=== PATIENT | female | born 1960 | race Caucasian/White ===

== ENCOUNTER 2016-06-23 10:32 | Outpatient (RCR) | payer MEDICARE, MEDICAID ==
--- OUTSIDE RECORDS SUMMARY | 2016-03-27 12:34 | XMS REPORT | Continuity of Care Document ---
Author Author [facility] Organization [facility] Address Unknown Phone Unavailable Support Name Relationship Address Phone FELECIA JUÁREZ YONATHAN Caregiver [address] [place] [address] PRANAY BARRON MD Caregiver [address] [facility]. RAJANLORRAINE RIOJAS [id number] [address]AVON Next Of Kin [address] [place] [address] Insurance Providers Payer Name Policy Number Subscriber Name Relationship [employer] Medicare [id number] Susie Pavon 18 Self / Same As Patient [facility] [employer] [id number] Susie Pavon 18 Self / Same As Patient Advance Directives Directive Response Recorded Date/Time Advance Directives No 04/29/14 7:45am Health Care Power of Water Treatment Operator No 04/29/14 7:45am Organ Donor Yes 04/29/14 7:45am Problems No known problems or medical conditions. Medications Medication Dose Route Sig Days/Qty Instructions Order Date Discontinued Date Status [place]-3/Dha/Epa/Fish Oil 1,000 Mg PO TWICE A DAY 07/20/11 Active Fluoxetine HCl (Prozac) 1 Each PO DAILY 07/20/11 08/07/11 Discontinued Insulin Detemir 50 Unit SQ DAILY 07/20/11 Active Metformin HCl (Glucophage) 1,000 Mg PO TWICE A DAY WITH MEALS HOLD UNTIL 08/11/11 07/20/11 04/29/14 Discontinued Amlodipine Besylate (Norvasc 10 Mg) 1 Each PO DAILY 07/20/11 Discontinued Pravastatin Sodium 40 Mg PO TWICE A DAY 07/20/11 Active Metoprolol Succinate 50 Mg PO BEDTIME 07/20/11 Active Liraglutide 1.8 Mg SQ DAILY 07/20/11 08/07/11 Discontinued Aspirin 325 Mg PO DAILY 08/07/11 08/07/11 Discontinued Fluoxetine HCl (Prozac) 20 Mg PO DAILY 08/07/11 Active Amlodipine Besylate 10 Mg PO DAILY 08/07/11 Active Aspirin 81 Mg PO DAILY 08/07/11 Active Glimepiride 2 Mg PO DAILY 04/29/14 Active Fenofibrate Nanocrystallized 48 Mg PO DAILY 04/29/14 Active Simvastatin 20 Mg PO DAILY 04/29/14 Active Glimepiride 4 Mg PO DAILY 04/29/14 Active Social History Social History Problem Response Recorded Date/Time Recent Foreign Travel No 05/29/2014 10:44am Hospital Discharge Instructions No hospital discharge instructions. Plan of Care No plan of care. Functional Status No functional status results. Allergies, Adverse Reactions, Alerts Allergen Type Severity Reaction Status Last Updated No Known Drug Allergies Active 07/21/11 Immunizations Name Given Type Date of Influenza Vaccine 05/18/11 Historical Vital Signs No known vital signs results. Results No known relevant diagnostic tests, laboratory data and/or discharge summary. Procedures No known history of procedures. Encounters Encounter Location Date/Time Discharged Recurring [facility] 08/26/14 11:44am
[~2016-06-23 10:32] MED LIST: AMLO10TA4 PO; AMLO10TA82 PO; ASP325TEC PO; ASP81TEC PO; FENO48TA5 PO; FLUO20CA25 PO; GLIM4TAB56 PO; GLMP2T PO; INSU100I16 SQ; LIRA0.6P3 SQ; METF-380 PO; METO50TA7 PO; OMEG-12 PO; PRAV80TA2 PO; SIMV20TA3 PO
== END 2016-06-25 | disposition home or self-care (01) ==
LOC: WOUNDCARE 10:32
PROVIDERS: ATTEND Surgery
DX: E11.622 Type 2 diabetes mellitus with other skin ulcer (principal); L98.493 Non-pressure chronic ulcer of skin of other sites with necrosis of muscle; T81.31XS Disruption of external operation (surgical) wound, not elsewhere classified, sequela; L92.8 Other granulomatous disorders of the skin and subcutaneous tissue
CPT/HCPCS: 11042; 15271; 17250; 87070; 87075; 87077; 87186; 87205

== ENCOUNTER → 2016-07-10 | Outpatient (CLI) | payer MEDICARE, MEDICAID ==
--- OUTSIDE RECORDS SUMMARY | 2016-07-10 14:37 | XMS REPORT | Continuity of Care Document ---
Author Author [facility] Organization [facility] Address Unknown Phone Unavailable Care Team Providers Care [facility] Hand Name Role Phone PHOEBE MAGANA MD PCP Insurance Providers Payer Name Policy Number Subscriber Name Relationship [employer] [id number] Susie Pavon 18 Self / Same As Patient Medicaid [place] [id number] Susie Pavon 19 Self / Same As Patient Advance Directives Directive Response Recorded Date/Time Advance Directives No 09/13/15 2:20pm Health Care Power of Director Of Maintenance No 04/29/14 7:45am Organ Donor Yes 04/29/14 7:45am Problems Active Problems Medical Problem Onset Date Status Chest pain on exertion Unknown Acute Medications Current Home Medications Medication Dose Units Route Directions Days/Qty Instructions Start Date [place]-3/Dha/Epa/Fish Oil 1 Each 1,000 Mg Oral Twice [...] Wound Culture Tissue, Other STAPH, 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 Encounters Encounter Location Arrival/Admit Date Discharge/Depart Date Attending Provider Discharged Recurring [facility] 06/23/16 10:32am 11:59pm STEPHANIE DIANE MD
--- NOTE | 2016-07-10 18:03 | Diagnostic Imaging Report ---
EXAM: Sternum. INDICATION: Osteomyelitis. FINDINGS: The previous exam of the sternum performed on 02/22/2016 raised the question of bony erosion of the the proximal aspect of the sternum. The subsequent MRI chest exam of 02/25/2016 failed to show any definite evidence for osteomyelitis. On this exam, the overall appearance of the sternum does not seem to have changed significantly. There is no sign of bony destruction to suggest osteomyelitis. The sternotomy wires and surgical clips noted previously are again evident and no different. There is no retrosternal mass visualized. IMPRESSION: There is no evidence for bony destruction to suggest osteomyelitis. If clinical concern regarding an underlying abnormality persists, then either a CT of the chest or a three-phase nuclear medicine bone scan would be recommended. Dictated by: Dictated on workstation # [id number]
== END ==
LOC: RAD 14:33
PROVIDERS: ATTEND Surgery
DX: L98.493 Non-pressure chronic ulcer of skin of other sites with necrosis of muscle (principal); T81.31XS Disruption of external operation (surgical) wound, not elsewhere classified, sequela; E11.622 Type 2 diabetes mellitus with other skin ulcer
CPT/HCPCS: 71120

== ENCOUNTER 2016-09-25 13:21 | Outpatient (RCR) | payer MEDICARE, MEDICAID ==
--- OUTSIDE RECORDS SUMMARY | 2016-06-28 15:05 | XMS REPORT | Continuity of Care Document ---
Author Author [facility] Organization [facility] Address Unknown Phone Unavailable Care Team Providers Care Emergency Veterinary Technician Name Role Phone PHOEBE MAGANA MD PCP Insurance Providers Payer Name Policy Number Subscriber Name Relationship [employer] [id number] Susie Pavon 18 Self / Same As Patient Medicaid [place] [id number] Susie Pavon 19 Self / Same As Patient Advance Directives Directive Response Recorded Date/Time Advance Directives No 09/13/15 2:20pm Health Care Power of Culture Manager No 04/29/14 7:45am Organ Donor Yes 04/29/14 7:45am Problems Active Problems Medical Problem Onset Date Status Chest pain on exertion Unknown Acute Medications Current Home Medications Medication Dose Units Route Directions Days/Qty Instructions Start Date [place]-3/Dha/Epa/Fish Oil 1 Each 1,000 Mg Oral Twice A Day 07/20/11 Insulin Detemir 100 Unit/1 Ml 50 Unit Sub-Q Daily 07/20/11 Pravastatin Sodium 80 Mg 40 Mg Oral Twice A Day 07/20/11 Metoprolol Succinate 50 Mg 50 Mg Oral Bedtime 07/20/11 Fluoxetine Hcl (Prozac) 20 Mg 20 Mg Oral Daily 08/07/11 Amlodipine Besylate 10 Mg 10 Mg Oral Daily 08/07/11 Aspirin 81 Mg 81 Mg Oral Daily 08/07/11 Glimepiride 2 Mg 2 Mg Oral Daily 04/29/14 Fenofibrate Nanocrystallized 48 Mg 48 Mg Oral Daily 04/29/14 Simvastatin 20 Mg 20 Mg Oral Daily 04/29/14 Glimepiride 4 Mg 4 Mg Oral Daily 04/29/14 Past Home Medications Medication Directions Ordered Status Fluoxetine Hcl (Prozac) 20 Mg Capsule, 1 Each Oral Daily 07/20/11 Discontinued Metformin Hcl (Glucophage) 1,000 Mg Tablet, 1000 Mg Oral Twice A Day With Meals 07/20/11 Discontinued Amlodipine Besylate (Norvasc 10 Mg) 10 Mg Tablet, 1 Each Oral Daily 07/20/11 Discontinued Liraglutide 0.6 Mg/0.1 Ml Pen.injctr, 1.8 Mg Sub-Q Daily 07/20/11 Discontinued Aspirin 325 Mg Tabec, 325 Mg Oral Daily 08/07/11 Discontinued Social History Social History Problem Response Recorded Date/Time Alcohol Use Denies Use 09/13/2015 2:55pm Recreational Drug Use No 09/13/2015 2:55pm Recent Foreign Travel No 03/27/2016 12:31pm Hospital Discharge Instructions No hospital discharge instructions. Plan of Care Prescriptions See Medication Section Functional Status No functional status results. Allergies, Adverse Reactions, Alerts No known allergies. Immunizations No immunization records. Vital Signs No known vital signs results. 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 Encounters Encounter Location Arrival/Admit Date Discharge/Depart Date Attending Provider Discharged Recurring [facility] 06/23/16 10:32am 11:59pm STEPHANIE DIANE MD
== END 2016-09-26 | disposition home or self-care (01) ==
LOC: WOUNDCARE 13:21
PROVIDERS: ATTEND Surgery
DX: E11.622 Type 2 diabetes mellitus with other skin ulcer (principal); L98.492 Non-pressure chronic ulcer of skin of other sites with fat layer exposed; T81.31XS Disruption of external operation (surgical) wound, not elsewhere classified, sequela
CPT/HCPCS: 11042; 15271; 71120; 87070; 87075; 87205; 88305; 99212; 99213

== ENCOUNTER 2018-07-31 13:16 | Outpatient (RCR) | payer MEDICARE, MEDICAID | END 2018-08-02 | disposition home or self-care (01) | LOC: CR3 13:16 | PROVIDERS: ATTEND Internal Medicine Cardiovascular Disease | DX: Z29.8 Encounter for other specified prophylactic measures (principal) ==

== ENCOUNTER 2018-08-21 13:55 | Outpatient (RCR) | payer MEDICARE, MEDICAID | END 2018-09-11 | disposition home or self-care (01) | LOC: CR3 13:55 | PROVIDERS: ATTEND Internal Medicine Cardiovascular Disease | DX: Z01.818 Encounter for other preprocedural examination (principal) ==

== ENCOUNTER → 2019-03-25 | Outpatient (CLI) | payer MEDICARE, MEDICAID | LOC: WOUNDCARE 08:06 | PROVIDERS: ATTEND Nurse Practitioner | DX: E11.622 Type 2 diabetes mellitus with other skin ulcer (principal); L97.222 Non-pressure chronic ulcer of left calf with fat layer exposed; I70.242 Atherosclerosis of native arteries of left leg with ulceration of calf | CPT/HCPCS: 99203 ==

== ENCOUNTER → 2019-04-03 | Outpatient (CLI) | payer MEDICARE, MEDICAID | LOC: WOUNDCARE 09:54 | PROVIDERS: ATTEND Nurse Practitioner | DX: E11.622 Type 2 diabetes mellitus with other skin ulcer (principal); E11.52 Type 2 diabetes mellitus with diabetic peripheral angiopathy with gangrene; L97.222 Non-pressure chronic ulcer of left calf with fat layer exposed; I70.242 Atherosclerosis of native arteries of left leg with ulceration of calf | CPT/HCPCS: 99212 ==

== ENCOUNTER → 2019-04-10 | Outpatient (CLI) | payer MEDICARE, MEDICAID | LOC: WOUNDCARE 10:45 | PROVIDERS: ATTEND Nurse Practitioner | DX: E11.622 Type 2 diabetes mellitus with other skin ulcer (principal); L97.222 Non-pressure chronic ulcer of left calf with fat layer exposed; I70.242 Atherosclerosis of native arteries of left leg with ulceration of calf | CPT/HCPCS: 11042 ==

== ENCOUNTER 2021-11-09 22:20 | Inpatient (IN) | payer MEDICARE, MEDICAID ==
[~2021-11-09] VITALS: Ht 162 cm; Wt 125.0 kg
[2021-11-09] MEDS ORDERED: NS IV 1000 ML 1,000 ML IV SCH (22:30)
--- NOTE | 2021-11-09 22:43 | ED General ---
General Stated Complaint: FALL Source of Information: Patient (LIMITED HISTORIAN ABOUT PAST MEDICAL HISTORY), EMS, Old Records (VERY FEW VISITS HERE, NOT BEEN HERE FOR SEVERAL YEARS. ) History of Present Illness Date Seen by Provider: November 09, 2021 Time Seen by Provider: 22:20 Initial Comments PT ARRIVES VIA EMS FROM HOME, WITH CERVICAL COLLAR IN PLACE PT STATES SHE FELL SOMETIME YESTERDAY EARLY TO MID AFTERNOON--PT HAS BEEN LAYING ON THE FLOOR FOR AT LEAST 36 HOURS. STATES SHE WAS WALKING TO THE BATHROOM ( TRYING TO HURRY ) AND LOST HER BALANCE AND FELL AND WAS NOT ABLE TO GET UP PT DENIES SYNCOPE PT HAD BEEN YELLING FOR HELP SINCE SHE FELL, AND FINALLY TODAY, SOMEONE IN HER APARTMENT COMPLEX HEARD HER YELLING AND A WELFARE CHECK WAS DONE. PT WAS FOUND LAYING FACE DOWN ON HER BATHROOM FLOOR, WITH THE RIGHT SIDE OF HER FACE PROPPED ON THE BOTTOM EDGE OF SHOWER STALL PT HAS BEEN INCONTINENT OF BOWEL AND BLADDER EMS REPORT THAT PT HAS HAD SOME DIFFICULTY TALKING AND IS SLIGHTLY CONFUSED. ON ARRIVAL HERE, SPEECH IS SOMEWHAT SLOW AND A LITTLE THICK-TONGUED--MOUTH IS EXTREMELY DRY AND PT C/O THIRST PT IS ORIENTED TO YEAR, BUT DOES NOT KNOW MONTH/DATE/DAY OF WEEK. PT IS ORIENTED TO SITUATION, AND KNOWS WHO HER DR IS, BUT HAS NOT BEEN TO A DR IN A LONG TIME PT IS INSULIN DEPENDENT DIABETIC, AND HAS CARDIAC HISTORY--HX OF CABG EMS REPORT THAT PT IS VERY NON-COMPLAINT IN ALL ASPECTS OF CARE, DOES NOT TAKE HER MEDICATIONS, DOES NOT CHECK BLOOD SUGAR AND HAS NOT SEEN A DR IN A LONG TIME. PT IS NOT ON ASPIRIN OR BLOOD THINNERS ACCUCHECK 451 FOR EMS. EMS GAVE WARM IV FLUIDS AND WARM BLANKETS, PT WAS VERY COLD AND HAD BEEN LAYING ON THE FLOOR IN URINE AND FECES FOR AT LEAST 36 HOURS. . PT C/O BEING COLD AND THIRSTY ON ARRIVAL. PT'S ONLY PAIN COMPLAINT IS RIGHT SHOULDER PAIN PT DENIES CHEST PAIN OR SHORTNESS OF BREATH DENIES ABDOMINAL PAIN OR NAUSEA/VOMITING NO PARESTHESIAS OR MOTOR DEFICITS, JUST WITH GENERALIZED WEAKNESS NO NECK PAIN OR BACK PAIN NO HIP OR LEG PAIN NO HEADACHE NO VISION CHANGES DENIES FEVER OR RECENT ILLNESS NO COUGH, NO CONGESTION, NO SORE THROAT, ETC. DENIES ANY PAIN OR DIFFICULTY URINATING PT HAS NOT HAD COVID OR FLU VACCINES [facility]CP: [facility], DR. ABIMAEL GRANDE Allergies and Home Medications Allergies Coded Allergies: No Known Drug Allergies (Unverified , 07/21/11) Patient Home Medication List Home Medication List Reviewed: Yes Amlodipine Besylate (Norvasc) 10 Mg Tablet, 10 MG PO DAILY, (Reported) Entered as Reported by: SYDNEE BLACK on 08/07/11 1550 Aspirin (Aspirin Ec 81 Mg) 81 Mg Tabec, 81 MG PO DAILY, (Reported) Entered as Reported by: SYDNEE BLACK on 08/07/11 1550 Fenofibrate Nanocrystallized (Fenofibrate) 48 Mg Tablet, 48 MG PO DAILY, (Reported) Entered as Reported by: ANA LAURA BAH on 04/29/14 08 Fluoxetine Hcl (Fluoxetine Hcl) 20 Mg Capsule, 20 MG PO DAILY, (Reported) Entered as Reported by: SYDNEE BLACK on 08/07/11 155 Glimepiride (Amaryl) 2 Mg Tablet, 2 MG PO DAILY, (Reported) Entered as Reported by: ANA LAURA BAH on 04/29/14834 Glimepiride (Amaryl) 4 Mg Tablet, 4 MG PO DAILY, (Reported) Entered as Reported by: ANA LAURA BAH on 04/29/14 0835 Insulin Detemir (Levemir) 100 Unit/1 Ml Insuln.pen, 50 UNIT SQ DAILY, (Reported) Entered as Reported by: MINH PAUL on 07/20/11 113 Metoprolol Succinate (Toprol Xl 50 Mg) 50 Mg Tab.sr.24h, 50 MG PO HS, (Reported) Entered as Reported by: MINH PAUL on 07/20/11 1135 Toyah-3/Dha/Epa/Fish Oil (Fish Oil 1,000 Mg Ec Softgel) 1 Each Capsule.dr, 1,000 MG PO BID, (Reported) Entered as Reported by: MINH PAUL on 07/20/11 1134 Pravastatin Sodium (Pravastatin Sodium) 80 Mg Tablet, 40 MG PO BID, (Reported) Entered as Reported by: MINH PAUL on 07/20/11 1135 Simvastatin (Simvastatin) 20 Mg Tablet, 20 MG PO DAILY, (Reported) Entered as Reported by: ANA LAURA BAH on 04/29/14 0835 Review of Systems Review of Systems Constitutional: chills, malaise, weakness EENTM: no symptoms reported Respiratory: no symptoms reported; No cough, No short of breath Cardiovascular: no symptoms reported; No chest pain, No palpitations, No syncope Gastrointestinal: no symptoms reported; No abdominal pain, No diarrhea, No nausea, No vomiting Genitourinary: see HPI Musculoskeletal: see HPI Skin: no symptoms reported Psychiatric/Neurological: No Symptoms Reported; Denies Headache, Denies Numbness, Denies Paresthesia, Denies Seizure, Denies Tingling Hematologic/Lymphatic: No Symptoms Reported Immunological/Allergic: no symptoms reported Past Doinifv-Nwfdqa-Lzehqt Hx Patient Social History Tobacco Use?: No Substance use?: No Alcohol Use?: No Seasonal Allergies Seasonal Allergies: No Past Medical History Surgeries: Yes Cardiac, CABG Respiratory: Yes Asthma Cardiac: Yes (CABG WITH SIGNFICANT STERNAL WOUND INFECTION POST OP) Coronary Artery Disease, High Cholesterol, Hypertension 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 oz. 102.159535cz; 41.33 BMI Method: General Appearance: Obese (MORBIDLY), Other (MORBIDLY OBESE, INCONTINENT OF BOWEL AND BLADDER, VERY MALODOROUS. PT IS VERY COLD AND SHIVERING. ) HEENT: PERRL/EOMI, TMs Normal, Other (ENTIRE FACE IS SWOLLEN AND EYES ARE ALMOST SWOLLEN SHUT, WITH GENERALIZED DEPENDENT EDEMA--NO ACTUAL HEMATOMAS OR BRUISING TO FACE-- AND CHEEKS AND FOREHEAD ARE VERY ERYTHEMATOUS---RIGHT > LEFT SIDE. NO BRUISING OR PETECHIAE OR OPEN WOUNDS. NO SUBCONJUNCTIVAL HEMORRHAGE OR HYPHEMA. ORAL MUCOSA IS EXREMELY DRY AND HAS EXTREMELY POOR ORAL HYGIENE, WITH VERY POOR DENTITION. DRIED SECRETIONS ALL AROUND MOUTH, CHIN AND CHEEKS. NOSE APPEARS TO BE VERY UPTURNED AT THE TIP, BUT OTHERWISE NO EVIDENCE OF TRAUMA. NO DRIED BLOOD IN NARES. ) Neck: Other (IN CERVICAL COLLAR. NON-TENDER ON REMOVAL OF COLLAR. AREA OF SKIN BREAKDOWN AND EARLY SCAB FORMATION TO RIGHT SUPRACLAVICULAR AREA. ) Respiratory: Chest Non Tender, Normal Breath Sounds, No Accessory Muscle Use, No Respiratory Distress, Decreased Breath Sounds (IN BASES), Other (NO EXTERANAL EVIDENCE OF TRAUMA TO CHEST, NO TENDERNESS OR DEFORMITY TO CHEST, NO CREPITANCE OR SUB Q AIR. BREASTS ARE VERY LARGE, AND WITHOUT EVIDENCE OF TRAUMA. ONLY HAS EXTENSIVE CANDIDAL INTERTRIGO UNDER BREASTS WITH SKIN MACERATION. NO BLEEDING. ) Cardiovascular: No Murmur, Tachycardia Gastrointestinal: Non Tender, Soft, Other (NO TENDERNESS OR EXTERNAL EVIDENCE OF TRAUMA TO ABDOMEN) Genital/Rectal: Other (ERYTHEMA ALL AROUND MARIE AREA--NO EVIDENCE OF SKIN BREAKDOWN. ) Back: Normal Inspection, No CVA Tenderness, No Vertebral Tenderness Extremity: Pedal Edema (1+ LOWER LEG/FEET EDEMA, BUT SKIN TO LOWER LEGS IS SHRIVELED UP. HAS OLD SCABBED WOUNDS TO LEFT MADRIGAL--NO SIGNS OF INFECTION. ), Pelvis Stable, Slow Capillary Refill, Other (FINGERTIPS CYANOTIC. RIGHT SHOULDER TENDERNESS, NO EXTERNAL EVIDENCE OF TRAUMA. LIMITED ROM DUE TO PAIN, D ISTAL MOTOR AND SENSORY INTACT. NO TENDERNESS TO LEFT ARM, OR TO EITHER LEG. ) Neurologic/Psychiatric: Alert, No Motor/Sensory Deficits (MOVES ALL EXTREMITIES EQUALLY--NO FOCAL DEFICITS, BUT HAS PROFOUND GENERALIZED WEAKNESS. ), Other (ORIENTED TO SELF, PLACE SITUATION, SOMEWHAT DISORIENTED TO TIME, BUT ABLE TO RECALL EVENTS. SPEECH IS SLOW AND THICK-TONGUED, BUT ORAL MUCOSA IS EXTREMELY DRY. ) Skin: Cool, Pallor, Other (SKIN IS VERY COLD, DRY, WITH ACROCYANOSIS. PT HAS EXTENSIVE MARTY INTERTRIGO UNDER BREASTS, IN SKIN FOLDS OF PANNUS AND BILATERAL INGUINAL /GROIN AREAS AND GLUTEAL FOLD; OLD APPEARING SCABBED WOUNDS TO LEFT SHOULDER AND FOREARM. NO SIGNS OF INFECTION. . ) Focused Exam Sepsis Stage: Sepsis Possible Source: Genitouriary Lactate Level 11/09/21 23:26: Lactic Acid Level 2.91*H 11/10/21 01:26: Lactic Acid Level 3.41*H Time of Focused Exam: 00:30 Respiratory: Chest Non Tender, Normal Breath Sounds, No Accessory Muscle Use, No Respiratory Distress Cardiovascular: Regular Rate, Rhythm Capillary Refill: Less Than 3 Seconds Skin: warm/dry Lactic Acid Level Laboratory Tests Test 11/09/21 23:26 11/10/21 01:26 Lactic Acid Level 2.91 MMOL/L (0.50-2.00) *H 3.41 MMOL/L (0.50-2.00) *H Within 3hrs of presentation: Admin fluids, Admin ABX, Blood cultures prior to ABX's, Focus exam, Lactate level Progress/Results/Core Measures Suspected Sepsis SIRS Temperature: Pulse: Respiratory Rate: Laboratory Tests 11/10/21 01:44: White Blood Count 13.3H Blood Pressure / Mean: 11/09/21 23:26: Lactic Acid Level 2.91*H 11/10/21 01:26: Lactic Acid Level 3.41*H Laboratory Tests 11/09/21 23:26: Creatinine 1.71H, Total Bilirubin 0.8 11/10/21 01:44: INR Comment 1.2, Platelet Count 206 Results/Orders Lab Results Laboratory Tests Test 11/09/21 22:23 11/09/21 22:50 11/09/21 23:05 11/09/21 23:26 Range/Units Urine Opiates Screen NEGATIVE NEGATIVE Urine Oxycodone Screen NEGATIVE NEGATIVE Urine Methadone Screen NEGATIVE NEGATIVE Urine Propoxyphene Screen NEGATIVE NEGATIVE Urine Barbiturates Screen NEGATIVE NEGATIVE Ur Tricyclic Antidepressants Screen NEGATIVE NEGATIVE Urine Phencyclidine Screen NEGATIVE NEGATIVE Urine Amphetamines Screen NEGATIVE NEGATIVE Urine Methamphetamines Screen NEGATIVE NEGATIVE Urine Benzodiazepines Screen NEGATIVE NEGATIVE Urine Cocaine Screen NEGATIVE NEGATIVE Urine Cannabinoids Screen NEGATIVE NEGATIVE Urine Color YELLOW Urine Clarity CLEAR Urine pH 5.5 5-9 Urine Specific Harper >=1.030 1.016-1.022 Urine Protein 3+ H NEGATIVE Urine Glucose (UA) 3+ H NEGATIVE Urine Ketones NEGATIVE NEGATIVE Urine Nitrite NEGATIVE NEGATIVE Urine Bilirubin 1+ H NEGATIVE Urine Urobilinogen 0.2 < = 1.0 MG/DL Urine Leukocyte Esterase NEGATIVE NEGATIVE Urine RBC (Auto) 3+ H NEGATIVE Urine RBC 0-2 /HPF Urine WBC 10-25 H /HPF Urine Squamous Epithelial Cells 0-2 /HPF Urine Renal Epithelial Cells NONE /HPF Urine Crystals NONE /LPF Urine Bacteria LARGE H /HPF Urine Casts NONE /LPF Urine Mucus NEGATIVE /LPF Urine Culture Indicated YES Influenza Type A (RT-PCR) Not Detected Not Detecte Influenza Type B (RT-PCR) Not Detected Not Detecte SARS-CoV-2 RNA (RT-PCR) Not Detected Not Detecte Sodium Level 137 135-145 MMOL/L Potassium Level 4.1 3.6-5.0 MMOL/L Chloride Level 96 L 98-107 MMOL/L Carbon Dioxide Level 21 21-32 MMOL/L Anion Gap 20 H 5-14 MMOL/L Blood Urea Nitrogen 27 H 7-18 MG/DL Creatinine 1.71 H 0.60-1.30 MG/DL Estimat Glomerular Filtration Rate 34 BUN/Creatinine Ratio 16 Glucose Level 490 *H 70-105 MG/DL Lactic Acid Level 2.91 *H 0.50-2.00 MMOL/L Calcium Level 10.0 8.5-10.1 MG/DL Corrected Calcium 10.7 H 8.5-10.1 MG/DL Magnesium Level 1.7 1.6-2.4 MG/DL Total Bilirubin 0.8 0.1-1.0 MG/DL Aspartate Amino Transf (AST/SGOT) 88 H 5-34 U/L Alanine Aminotransferase (ALT/SGPT) 46 0-55 U/L Alkaline Phosphatase 148 H 40-136 U/L Total Creatine Kinase 1577 H 29-168 U/L C-Reactive Protein High Sensitivity 13.27 H 0.00-0.50 MG/DL Total Protein 8.5 H 6.4-8.2 GM/DL Albumin 3.1 L 3.2-4.5 GM/DL Amylase Level 131 H 25-125 U/L Lipase 11 8-78 U/L Procalcitonin 0.10 H <0.10 NG/ML TSH Winn Testing 2.24 0.35-4.94 UIU/ML Test 11/10/21 01:13 11/10/21 01:26 11/10/21 01:44 11/10/21 02:11 Range/Units Blood Gas Puncture Site LEFT RADIAL Blood Gas Patient Temperature 36.9 Arterial Blood pH 7.36 L 7.37-7.43 Arterial Blood Partial Pressure CO2 46 H 35-45 MMHG Arterial Blood Partial Pressure O2 88 79-93 MMHG Arterial Blood HCO3 26 23-27 MMOL/L Arterial Blood Total CO2 27.2 21.0-31.0 MMOL/L Arterial Blood Oxygen Saturation 97 94-100 % Arterial Blood Base Excess 0.8 -2.5-2.5 MMOL/L Vernon Test POSITIVE Blood Gas Ventilator Setting NO Blood Gas Inspired Oxygen 2 Lactic Acid Level 3.41 *H 0.50-2.00 MMOL/L White Blood Count 13.3 H 4.3-11.0 10^3/uL Red Blood Count 4.46 3.80-5.11 10^6/uL Hemoglobin 11.3 L 11.5-16.0 g/dL Hematocrit 36 35-52 % Mean Corpuscular Volume 81 80-99 fL Mean Corpuscular Hemoglobin 25 25-34 pg Mean Corpuscular Hemoglobin Concent 31 L 32-36 g/dL Red Cell Distribution Width 13.8 10.0-14.5 % Platelet Count 206 130-400 10^3/uL Mean Platelet Volume 11.6 9.0-12.2 fL Immature Granulocyte % (Auto) 1 % Neutrophils (%) (Auto) 90 H 42-75 % Lymphocytes (%) (Auto) 8 L 12-44 % Monocytes (%) (Auto) 1 0-12 % Eosinophils (%) (Auto) 0 0-10 % Basophils (%) (Auto) 0 0-10 % Neutrophils # (Auto) 12.0 H 1.8-7.8 10^3/uL Lymphocytes # (Auto) 1.0 1.0-4.0 10^3/uL Monocytes # (Auto) 0.2 0.0-1.0 10^3/uL Eosinophils # (Auto) 0.0 0.0-0.3 10^3/uL Basophils # (Auto) 0.0 0.0-0.1 10^3/uL Immature Granulocyte # (Auto) 0.1 0.0-0.1 10^3/uL Neutrophils % (Manual) 89 % Lymphocytes % (Manual) 9 % Monocytes % (Manual) 1 % Eosinophils % (Manual) 1 % Blood Morphology Comment NORMAL Erythrocyte Sedimentation Rate 31 H 0-30 MM/HR Prothrombin Time 15.2 H 12.2-14.7 SEC INR Comment 1.2 0.8-1.4 Activated Partial Thromboplast Time 31 24-35 SEC D-Dimer 0.91 H 0.00-0.49 UG/ML Creatine Kinase MB 26.8 *H <6.6 NG/ML Myoglobin 2189.2 H 10.0-92.0 NG/ML Troponin I 5.138 *H <0.028 NG/ML B-Type Natriuretic Peptide 171.9 H <100.0 PG/ML Beta-Hydroxybutyrate (Chem panel) 0.47 H 0.00-0.27 MMOL/L Glucometer 374 H 70-110 MG/DL My Orders Orders - PAIGE IRVING DO Accucheck Stat ONCE (11/09/21 22:23) Ed Iv/Invasive Line Start (11/09/21 22:23) Ekg Tracing (11/09/21:) Catheter(Urinary) Insert & Ass 03,15 (11/09/21 22:23) O2 (11/09/21:) Monitor-Rhythm Ecg Trace Only (11/09/21:) Ct Head/Face/Cervical Wo (11/09/21 22:23) Ct Thoracic/Lumbar Spine Wo (11/09/21:23) Amylase (11/09/21 22:23) Arterial Blood Gas (11/09/21 22:23) Bnp Dea (11/09/21 22:23) Cbc With Automated Diff (11/09/21 22:23) Comprehensive Metabolic Panel (11/09/21:23) Creatine Kinase (11/09/21 22:23) Hs C Reactive Protein (11/09/21 22:23) Erythrocyte Sedimentation Rate (11/09/21 22:23) Fibrin Degradation Products (11/09/21 22:23) Drug Screen Stat (Urine) (11/09/21 22:23) Lactic Acid Analyzer (11/09/21 22:23) Lipase (11/09/21 22:23) Magnesium (11/09/21 22:23) Procalcitonin (Pct) (11/09/21 22:23) Protime With Inr (11/09/21 22:23) Partial Thromboplastin Time (11/09/21 22:23) Thyroid Analyzer (11/09/21 22:23) Ua Culture If Indicated (11/09/21 22:23) Ed Iv/Invasive Line Start (11/09/21 22:23) Ns Iv 1000 Ml (Sodium Chloride 0.9%) (11/09/21 22:30) Covid 19 Inhouse Test (11/09/21 22:23) Influenza A And B By Pcr (11/09/21 22:23) Isolation Central Supply Req (11/09/21 22:23) Urine Culture (11/09/21 22:50) Ed Iv/Invasive Line Start (11/10/21 00:02) Ns Iv 1000 Ml (Sodium Chloride 0.9%) (11/10/21 00:15) Ceftriaxone 1 Gm Pre-Mix (Rocephin 1 Gm (11/10/21 00:02) Chest 1 View, Ap/Pa Only (11/10/21 00:01) Pelvis (11/10/21 00:01) Shoulder, Right, 3 Views (11/10/21 00:01) Blood Culture (11/10/21 00:39) Ed Iv/Invasive Line Start (11/10/21 00:39) Vital Signs Adult Sepsis Patie Q15M (11/10/21 00:39) O2 (11/10/21 00:39) Remove Rings In Anticipation O (11/10/21 00:39) Beta Hydroxybutyrate (11/10/21 00:41) Hemoglobin A1c (11/10/21 00:41) Ed Iv/Invasive Line Start (11/10/21 00:42) Ns Iv 1000 Ml (Sodium Chloride 0.9%) (11/10/21 00:45) Insulin (Regular) Human (Novolin R (Per (11/10/21 01:30) Arterial Blood Gas (11/10/21 01:36) Creatine Kinase Mb (11/10/21 01:44) Myoglobin Serum (11/10/21 01:44) Troponin I Dea (11/10/21 01:44) Accucheck Stat ONCE (11/10/21 02:11) Manual Differential (11/10/21 01:44) Medications Given in ED Current Medications Medications Dose Ordered Sig/Eligio Route Start Time Stop Time Status Last Admin Dose Admin Insulin Human Regular 10 unit ONCE ONCE IV 11/10/21 01:30 11/10/21 01:31 DC 11/10/21 01:31 10 UNIT Vital Signs/I&O 11/09/21 11/09/21 22:35 22:35 Temp 36.0 Pulse 90 Resp 20 B/P (MAP) 141/86 (104) Pulse Ox 97 97 O2 Delivery Nasal Cannula Nasal Cannula O2 Flow Rate 2.00 2.00 Capillary Refill : Progress Note : Progress Note ACCUCHECK 462 GIVEN WARM IV FLUIDS, AND LOTS OF WARM BLANKETS DIFFICULT IV ACCESS. SEPSIS PROTOCOL INITIATED GIVEN ROCEPHIN O2 SAT 90% ON ROOM AIR, UP TO 94% ON 2L/NC NO DETERIORATION IN PT'S CONDITION DURING ER STAY HEART RATE DOWN WITH IV FLUIDS AND WARMING PT. BP IS STABLE PT IS WARMER, NO LONGER SHIVERING, IMPROVED CAPILLARY REFILL, AND IMPROVED MENTATION ORAL MUCOSA IS ALSO MOISTER AFTER IV FLUIDS AND ORAL SWABS AND SPEECH IS BETTER. HEART RATE DOWN, BP STABLE GIVEN INSULIN FOR ELEVATED BLOOD GLUCOSE GLUCOSE LEVEL IS COMING DOWN--IS 374 PRIOR TO ADMIT. NO CHEST PAIN, NO SHORTNESS OF BREATH, NO COUGH, NO ARRHYTHMIAS AT ANY TIME DURING ER STAY NO ABDOMINAL PAIN OR GI COMPLAINTS AT ANY TIME DURING ER STAY. LATER GIVEN FENTANYL FOR SHOULDER PAIN AND LOW BACK PAIN COMPLAINT--STATES IS FROM LAYING FLAT ON HER BACK, SINCE SHE HAS BEEN IN ER. ECG Initial ECG Impression Date: November 10, 2021 Initial ECG Impression Time: 01:19 Initial ECG Rate: 88 Initial ECG Rhythm: Normal Sinus Initial ECG Impression: Nonspecific Changes Diagnostic Imaging Comments XRAYS--ALL PENDING RADIOLOGIST REVIEW: CXR--POOR INSPIRATION, BIBASILAR ATELECTASIS RIGHT SHOULDER--NO FX OR DISLOCATION PELVIS--NO FX OR DISLOCATION CT HEAD/MAXILLOFACIALS/CERVICAL SPINE--PER [facility] REPORT AT 0133 -NO ACUTE TRAUMATIC INJURY OF HEAD OR CERVICAL SPINE, RIGHT PERIORBITAL SOFT TISSUE THICKENING AND FAT STRANDING COMPATIBLE WITH SOFT TISSUE CONTUSION. CT THORACIC/LUMBAR SPINE--NO ACUTE BONY INJURY, PER [facility] VIA FAX AT 0156 Reviewed: Reviewed by Me Departure Communication (Admissions) Family Conversation BROTHER IS HERE TO SEE PT, HE STATES SHE HAS FALLEN SEVERAL TIMES AND NOT BEEN ABLE TO GET UP OVER THE PAST COUPLE OF YEARS. HE CONFIRMS THAT SHE IS EXTREMELY NON-COMPLIANT IN ALL ASPECTS--DOES NOT TAKE MEDICATIONS, DOES NOT CHECK BLOOD SUGAR, DOES NOT FOLLOW A HEALTHY DIET, DOES NOT FOLLOW UP WITH DRS, ETC. HE DOES NOT THINK PT SHOULD LIVE BY HERSELF ANYMORE AND NEEDS [facility] FACILITY PLACEMENT ON DISMISSAL FROM HOSPITAL. 0240--SPOKE WITH DR. JUSTIN, ACCEPTS PT FOR ADMIT. 024--SPOKE WITH DR. TUCKER, RELAY OPERATOR, SUSPECTS THAT ELEVATED TROPONIN IS RELATED TO ELEVATED CK/MB/MYOGLOBIN, AND NOT FROM IA OR CARDIAC CONTUSION. WILL OBTAIN ECHO IN AM AND DO SERIAL EKG'S AND TROPONINS. AGREES WITH PLAN OF CARE. 0248--REPORT TO E-ICU PHYSICIAN. NO ADDITIONAL RECOMMENDATIONS AT THIS TIME. WILL CONSULT TRAUMA SURGEON IN AM DUE TO HISTORY OF FALL. Impression Primary Impression: Fall from standing Additional Impressions: Uncontrolled diabetes mellitus Lactic acidosis UTI (urinary tract infection) Hypothermia Sepsis Dehydration Renal insufficiency Candidal intertrigo INABILITY TO CARE FOR SELF Contusion of right shoulder Morbid obesity Elevated troponin EARLY RHABDOMYOLYSIS Non-compliance HX OF CAD WITH CABG Disposition: ADMITTED INPATIENT Condition: Improved Admissions Decision to Admit Reason: Admit from ER (Trauma) Decision to Admit/Date: November 10, 2021 Time/Decision to Admit Time: 02:40 Departure-Patient Inst. Referrals: PHOEBE MAGANA MD (PCP/Family) Primary Care Physician PAIGE IRVING DO November 09, 2021 22:43
[2021-11-09 22:58] LABS: BILIRUBIN,URINE 1+ (NEGATIVE); CLARITY,URINE CLEAR; COLOR,URINE YELLOW; GLUCOSE, URINE (UA) 3+ (NEGATIVE); KETONES,URINE NEGATIVE (NEGATIVE); LEUKOCYTE ESTERASE ,URINE NEGATIVE (NEGATIVE); NITRITE,URINE NEGATIVE (NEGATIVE); PH,URINE 5.5 (5-9); PROTEIN,URINE 3+ (NEGATIVE)
[2021-11-09 23:09] LABS: BACTERIA,URINE LARGE /HPF; RBC,URINE 0-2 /HPF; SQUAMOUS EPITHELIAL CELL,UR 0-2 /HPF
[2021-11-09 23:10] LABS: AMPHETAMINE SCREEN, URINE NEGATIVE (NEGATIVE); BARBITURATE SCREEN URINE NEGATIVE (NEGATIVE); BENZODIAZEPINES SCREEN URINE NEGATIVE (NEGATIVE); CANNABINOID SCREEN, URINE NEGATIVE (NEGATIVE); COCAINE SCREEN URINE NEGATIVE (NEGATIVE); METHADONE STAT NEGATIVE (NEGATIVE); OPIATE SCREEN URINE NEGATIVE (NEGATIVE); OXYCODONE STAT NEGATIVE (NEGATIVE); PROPOXYPHENE STAT NEGATIVE (NEGATIVE); TRICYCLIC ANTIDEPRESSANTS SCRE NEGATIVE (NEGATIVE)
[2021-11-09 23:42] LABS: ALBUMIN 3.1 GM/DL (3.2-4.5)
[2021-11-09 23:43] LABS: POTASSIUM 4.1 MMOL/L (3.6-5.0)
[2021-11-09 23:45] LABS: TOTAL PROTEIN 8.5 GM/DL (6.4-8.2)
[2021-11-09 23:47] LABS: BILIRUBIN,TOTAL 0.8 MG/DL (0.1-1.0)
[2021-11-09 23:49] LABS: CREATININE SERUM 1.71 MG/DL (0.60-1.30)
[2021-11-09 23:52] LABS: MAGNESIUM 1.7 MG/DL (1.6-2.4)
[2021-11-10] MEDS ORDERED: cefTRIAXone 1 GM PRE-MIX 50 ML IV STA (00:02)
[2021-11-10] MEDS ORDERED: NS IV 1000 ML 1,000 ML IV SCH ×2 (00:15→00:45)
[2021-11-10 00:44] LABS: TSH (THYROID ANALYZER) 2.24 UIU/ML (0.35-4.94)
[2021-11-10 01:26] LABS: ABG BASE EXCESS 0.8 MMOL/L (-2.5-2.5); ABG OXYGEN SATURATION 97 % (94-100); ABG PCO2 46 MMHG (35-45); ABG PH 7.36 (7.37-7.43); ABG PO2 88 MMHG (79-93); ABG TCO2 27.2 MMOL/L (21.0-31.0); ALLENS TEST POSITIVE; INSPIRED O2 2; PATIENT TEMP 36.9; VENTILATOR NO
[2021-11-10] MEDS ORDERED: inSUlin (REGULAR) HUMAN 1 UNIT/0.01 ML (CHARGE PER UNIT) IV ONE (01:30)
[2021-11-10 02:02] LABS: BASOPHILS % (AUTO) 0 % (0-10); EOSINOPHILS % (AUTO) 0 % (0-10); HEMATOCRIT 36 % (35-52); HEMOGLOBIN 11.3 g/dL (11.5-16.0); LYMPHOCYTES % (AUTO) 8 % (12-44); MEAN CORPUSCULAR HEMOGLOBIN 25 pg (25-34); MEAN CORPUSCULAR HGB CONC 31 g/dL (32-36); MEAN CORPUSCULAR VOLUME 81 fL (80-99); MEAN PLATELET VOLUME 11.6 fL (9.0-12.2); MONOCYTES # (AUTO) 0.2 10^3/uL (0.0-1.0); MONOCYTES % (AUTO) 1 % (0-12); NEUTROPHILS % (AUTO) 90 % (42-75); PLATELET COUNT 206 10^3/uL (130-400); WHITE BLOOD COUNT 13.3 10^3/uL (4.3-11.0)
[2021-11-10 02:16] LABS: FIBRIN DEGRADATION PRODUCTS 0.91 UG/ML (0.00-0.49); INR 1.2 (0.8-1.4); PROTHROMBIN TIME PATIENT 15.2 SEC (12.2-14.7)
[2021-11-10 02:31] LABS: CREATINE KINASE MB 26.8 NG/ML (<6.6)
[2021-11-10 02:34] LABS: EOSINOPHILS % (MANUAL) 1 %; LYMPHOCYTES % (MANUAL) 9 %; MONOCYTES % (MANUAL) 1 %; NEUTROPHILS % (MANUAL) 89 %; RBC MORPH NORMAL
[2021-11-10 02:35] LABS: ERYTHROCYTE SEDIMENTATION RATE 31 MM/HR (0-30)
[2021-11-10] MEDS ORDERED: fentaNYL INJ 100 MCG/2 ML AMP IVP ONE (03:00)
[2021-11-10] MEDS ORDERED: NS IV 1000 ML 1,000 ML ONE (04:09)
[2021-11-10] MEDS: NS IV 1000 ML 1,000 ML IV SCH ×4 (04:25→22:49)
[2021-11-10] MEDS: PANTOPRAZOLE 40 MG (PROTONIX) VIAL IV SCH (04:30)
[2021-11-10] MEDS: MAGNESIUM 1 GM/100 ML IVPB 100 ML IV SCH ×2 (04:30→05:53)
--- NOTE | 2021-11-10 04:40 | Tele-ICU Progress Note ---
Progress Note TeleICU 61 yo woman admitted from home where she had fallen from standing in bathroom and unable to get up for over 36 hours- found incontinent of stool and urine and hypothermic as she had been lying on the bathroon floor. ED reports she was very dehydrated clinically- oral mucosa , lips dry. Work up in the ED found her to be hyperglycemic and extensive films of CT head, face, C spine, thoracic and lumbar spine were negative . PMHx + for DM, CAD, s/p CABG in 2013, prev osteomyelitis of sternotomy - lives alone. Labs in ED: UA wbcs 10-25, +bacteria but LE, Nitrite, ketones all neg. COVID, Flu A, B negative Na 137 K 4.1 Cl 96 Bicarb 21 BUN 27 Creat 1.71 Gluc 490 LA 2.9, 3.4 Mag 1.7 CK 1577 Trop 5.138 CK- MB 26.8 CBC WBCs 13,300 Hgb 11.3 Plts 206,000 CRP 13.27 Procal 0.10 ESR 31 DDimer 0.91 BNP 171 BetaOH 0.47 Pt VS 138/95 HR 93 sinus sats 94% r/A- is awake but not fully alert per nursing- In ED- sepsis protocol was initiated- ceftriaxone initiated for suspect uti, 3 L NS IV, passive re-warming for hypothermia, 10 units insulin given once. . Consults were initated to hospitalist, mixing operator and trauma surgery to follow. Glucose trending down. Will repeat BMP now and initiate sliding scale insulin q.6 hours, replace Mg, Blood cultures to be drawn if not completed in ED.- tropnin, LA, repeat CK- Continue IVF, ceftriaxone, lovenox, pantoprazole, NPO until more alert- consults to see pt in AM. Focused Exam Lactate Level 11/09/21 23:26: Lactic Acid Level 2.91*H 11/10/21 01:26: Lactic Acid Level 3.41*H 11/10/21 04:20: Height, Weight, BMI Height: 5'2" Weight: 226lbs. oz. 102.178962ug; 48.00 BMI Method: Time of Focused Exam: 00:30 Lactic Acid Level Laboratory Tests Test 11/10/21 01:26 11/10/21 04:20 Lactic Acid Level 3.41 MMOL/L (0.50-2.00) *YANCI ALCALA DO November 10, 2021 04:40
[2021-11-10 05:34] VITALS: BP 141/86
[2021-11-10 05:43] LABS: ALBUMIN 2.6 GM/DL (3.2-4.5); BILIRUBIN,TOTAL 0.4 MG/DL (0.1-1.0); CALCIUM 8.7 MG/DL (8.5-10.1); CREATININE SERUM 1.65 MG/DL (0.60-1.30); MAGNESIUM 1.6 MG/DL (1.6-2.4); PHOSPHORUS 4.1 MG/DL (2.3-4.7); POTASSIUM 3.8 MMOL/L (3.6-5.0); TOTAL PROTEIN 6.9 GM/DL (6.4-8.2)
[2021-11-10] MEDS ORDERED: RT-ALBUTEROL SULF 2.5 MG/3 ML PRE-MIX VIAL INH PRN (05:45)
[2021-11-10 06:21] LABS: BASOPHILS % (AUTO) 0 % (0-10); EOSINOPHILS % (AUTO) 0 % (0-10); HEMATOCRIT 43 % (35-52); HEMOGLOBIN 13.6 g/dL (11.5-16.0); LYMPHOCYTES % (AUTO) 10 % (12-44); MEAN CORPUSCULAR HEMOGLOBIN 26 pg (25-34); MEAN CORPUSCULAR HGB CONC 32 g/dL (32-36); MEAN CORPUSCULAR VOLUME 81 fL (80-99); MEAN PLATELET VOLUME 11.6 fL (9.0-12.2); MONOCYTES # (AUTO) 1.8 10^3/uL (0.0-1.0); MONOCYTES % (AUTO) 9 % (0-12); NEUTROPHILS # (AUTO) 16.3 10^3/uL (1.8-7.8); NEUTROPHILS % (AUTO) 81 % (42-75); PLATELET COUNT 254 10^3/uL (130-400)
--- NOTE | 2021-11-10 06:38 | Diagnostic Imaging Report ---
PROCEDURE: CT thoracic and lumbar spine without contrast. TECHNIQUE: Multiple contiguous axial images were obtained through the thoracic and lumbar spine without the use of intravenous contrast. Sagittal and coronal reformations were then performed. All CT scans use one or more of the following dose optimizing techniques: automated exposure control, MA and/or KvP adjustment based on a patient size and exam type, or iterative reconstruction. INDICATION: Fall. Mid and lower back pain. Found down. COMPARISON: None. FINDINGS: No acute fracture or dislocation is seen in the thoracic and lumbar spine. Alignment is anatomic. No focal suspicious osseous lesions are seen. Degenerative changes are present in the thoracic and lumbar spine with disc osteophyte complexes and facet hypertrophy. These are greatest at the T8-T9, T12-L1, L1-L2, L3-L4, and L4-L5 levels. No evidence of acute spinal canal stenosis. No high density material is seen within the spinal canal. The paraspinal soft tissues are unremarkable. The included lungs are clear. A nodule is seen in the left adrenal gland containing central fat measuring 2.8 cm. There is calcified aortic and iliac atherosclerotic plaque without aneurysm. IMPRESSION: 1. No acute fracture or dislocation in the thoracic and lumbar spine. 2. 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 Findings regarding the left adrenal myolipoma were not included in the preliminary report. Otherwise, agree with preliminary report. Dictated by: Dictated on workstation # [id number]
[2021-11-10 06:45] LABS: WHITE BLOOD COUNT 20.2 10^3/uL (4.3-11.0)
[2021-11-10] MEDS: inSUlin ASPART (NovoLOG) 1 UNIT/0.01 ML (CHARGE PER UNIT) SC SCH ×3 (06:54→17:56)
--- NOTE | 2021-11-10 06:54 | Diagnostic Imaging Report ---
INDICATION: Trauma with head and neck and facial pain TECHNIQUE: Multiple contiguous axial images were obtained through the head, neck, and facial bones without the use of intravenous contrast. Sagittal and coronal reformations through the cervical spine and facial bones were also performed. Auto Exposure Controls were utilized during the CT exam to meet ALARA standards for radiation dose reduction. There is no prior study for comparison. CT head findings: There are no extra-axial fluid collections. No intercranial hemorrhage. No intracranial mass or mass effect. No midline shift. The ventricles are normal in size and position. There were no focal parenchymal abnormalities in the brain. Calvarial windows appear unremarkable, no fracture. CT maxillofacial findings: There was no evidence of facial bone fracture. There is a retention cyst or polyp in the right maxillary sinus. Remaining sinuses are well aerated. There is some right periorbital soft tissue swelling. CT cervical spine findings: There was no evidence of cervical spine fracture. There is no subluxation or malalignment. There is mild diffuse facet degenerative change. There is disc space narrowing and osteophyte formation at C5-C6 and C6-C7. IMPRESSION: CT head was unremarkable. CT maxillofacial shows no evidence of facial fracture. There is retention cyst or polyp in the right maxillary sinus. There is right periorbital soft tissue swelling. CT cervical spine shows mild degenerative findings with no acute fracture or subluxation. Dictated by: Dictated on workstation # [id number]
[2021-11-10 06:56] LABS: LYMPHOCYTES % (MANUAL) 11 %; MONOCYTES % (MANUAL) 7 %; NEUTROPHILS % (MANUAL) 82 %; RBC MORPH NORMAL
--- NOTE | 2021-11-10 06:56 | Diagnostic Imaging Report ---
INDICATION: Fall with chest pain Frontal chest obtained at 12:22 a.m. and compared to 09/13/2015. There is poststernotomy change in cardiomegaly. There is poor inspiration with some right basilar atelectasis. There is no pneumothorax or pleural fluid. IMPRESSION: Cardiomegaly and poststernotomy change. Poor inspiration with some mild right basilar atelectasis. No pneumothorax or pleural fluid. Dictated by: Dictated on workstation # [id number]
--- NOTE | 2021-11-10 06:57 | Diagnostic Imaging Report ---
INDICATION: Pelvic pain, trauma AP pelvis obtained at 1223 p.m. No fracture or acute bony abnormality seen. There are degenerative changes of the SI joints bilaterally. There is mild degenerative change of both hips. IMPRESSION: Mild chronic changes as above with no acute fracture. Dictated by: Dictated on workstation # [id number]
--- NOTE | 2021-11-10 06:57 | Diagnostic Imaging Report ---
INDICATION: Right shoulder pain AP, oblique, and transscapular views the right shoulder are obtained. No fracture or acute bony abnormality is seen. AC joint and glenohumeral joint are in good alignment. There is mild degenerative change. IMPRESSION: No acute abnormality of the right shoulder. Dictated by: Dictated on workstation # [id number]
[2021-11-10] MEDS: ENOXAPARIN 40 MG/0.4 ML (LOVENOX) SYR SC SCH ×2 (08:27→20:07)
--- NOTE | 2021-11-10 09:43 | History & Physical ---
HPI History of Present Illness: 61 yo female brought to ER after being found down at home. This morning at time of my exam, she is very lethargic and awakens and answers questions with only one word. She does answer when asked why she came to the hospital "I fell" but doesn't answer further detail questions. Per ER notes, she denied syncope and fell at least 36 hours prior to receiving assistance. Unable to obtain further history at this time. Source: patient Exam Limitations: clinical condition Date seen by provider: November 10, 2021 Time Seen by Provider: 09:35 Attending Physician Francisco Aguilar MD PCP Admitting Physician: Devyn Hauser MD Attending Physician: Devyn Hauser MD Consult Date of Admission November 10, 2021 at 02:40 Home Medications Home Medications Reviewed patient Home Medication Reconciliation performed by pharmacy medication reconciliations groundwater monitoring technician and/or nursing. Patients Allergies have been reviewed. Allergies Coded Allergies: No Known Drug Allergies (Unverified , 07/21/11) [id number] Hx Patient Social History Smoking Status: Unknown if Ever Smoked Alcohol Use?: No Have you traveled recently?: No Immunizations Up To Date Influenza Vaccine Up-to-Date: No; Not Current First/Initial COVID19 Vaccinat: NONE Second COVID19 Vaccination Florencio: NONE Past Medical History PMHx: HTN DMII HLD Family Medical History Significant Family History: No Pertinent Family Hx Review of Systems ([facility]) Constitutional: other (unable to obtain) Reviewed Test Results Reviewed Test Results Lab Laboratory Tests Test 11/09/21 22:23 11/09/21 22:50 11/09/21 23:05 11/09/21 23:26 Range/Units Urine Opiates Screen NEGATIVE NEGATIVE Urine Oxycodone Screen NEGATIVE NEGATIVE Urine Methadone Screen NEGATIVE NEGATIVE Urine Propoxyphene Screen NEGATIVE NEGATIVE Urine Barbiturates Screen NEGATIVE NEGATIVE Ur Tricyclic Antidepressants Screen NEGATIVE NEGATIVE Urine Phencyclidine Screen NEGATIVE NEGATIVE Urine Amphetamines Screen NEGATIVE NEGATIVE Urine Methamphetamines Screen NEGATIVE NEGATIVE Urine Benzodiazepines Screen NEGATIVE NEGATIVE Urine Cocaine Screen NEGATIVE NEGATIVE Urine Cannabinoids Screen NEGATIVE NEGATIVE Urine Color YELLOW Urine Clarity CLEAR Urine pH 5.5 5-9 Urine Specific [place] >=1.030 1.016-1.022 Urine Protein 3+ H NEGATIVE Urine Glucose (UA) 3+ H NEGATIVE Urine Ketones NEGATIVE NEGATIVE Urine Nitrite NEGATIVE NEGATIVE Urine Bilirubin 1+ H NEGATIVE Urine Urobilinogen 0.2 < = 1.0 MG/DL Urine Leukocyte Esterase NEGATIVE NEGATIVE Urine RBC (Auto) 3+ H NEGATIVE Urine RBC 0-2 /HPF Urine WBC 10-25 H /HPF Urine Squamous Epithelial Cells 0-2 /HPF Urine Renal Epithelial Cells NONE /HPF Urine Crystals NONE /LPF Urine Bacteria LARGE H /HPF Urine Casts NONE /LPF Urine Mucus NEGATIVE /LPF Urine Culture Indicated YES Influenza Type A (RT-PCR) Not Detected Not Detecte Influenza Type B (RT-PCR) Not Detected Not Detecte SARS-CoV-2 RNA (RT-PCR) Not Detected Not Detecte Sodium Level 137 135-145 MMOL/L Potassium Level 4.1 3.6-5.0 MMOL/L Chloride Level 96 L 98-107 MMOL/L Carbon Dioxide Level 21 21-32 MMOL/L Anion Gap 20 H 5-14 MMOL/L Blood Urea Nitrogen 27 H 7-18 MG/DL Creatinine 1.71 H 0.60-1.30 MG/DL Estimat Glomerular Filtration Rate 34 BUN/Creatinine Ratio 16 Glucose Level 490 *H 70-105 MG/DL Lactic Acid Level 2.91 *H 0.50-2.00 MMOL/L Calcium Level 10.0 8.5-10.1 MG/DL Corrected Calcium 10.7 H 8.5-10.1 MG/DL Magnesium Level 1.7 1.6-2.4 MG/DL Total Bilirubin 0.8 0.1-1.0 MG/DL Aspartate Amino Transf (AST/SGOT) 88 H 5-34 U/L Alanine Aminotransferase (ALT/SGPT) 46 0-55 U/L Alkaline Phosphatase 148 H 40-136 U/L Total Creatine Kinase 1577 H 29-168 U/L C-Reactive Protein High Sensitivity 13.27 H 0.00-0.50 MG/DL Total Protein 8.5 H 6.4-8.2 GM/DL Albumin 3.1 L 3.2-4.5 GM/DL Amylase Level 131 H 25-125 U/L Lipase 11 8-78 U/L Procalcitonin 0.10 H <0.10 NG/ML TSH [place] Testing 2.24 0.35-4.94 UIU/ML Test 11/10/21 01:13 11/10/21 01:26 11/10/21 01:44 5/26/22 02:11 Range/Units Blood Gas Puncture Site LEFT RADIAL Blood Gas Patient Temperature 36.9 Arterial Blood pH 7.36 L 7.37-7.43 Arterial Blood Partial Pressure CO2 46 H 35-45 MMHG Arterial Blood Partial Pressure O2 88 79-93 MMHG Arterial Blood HCO3 26 23-27 MMOL/L Arterial Blood Total CO2 27.2 21.0-31.0 MMOL/L Arterial Blood Oxygen Saturation 97 94-100 % Arterial Blood Base Excess 0.8 -2.5-2.5 MMOL/L [place] Test POSITIVE Blood Gas Ventilator Setting NO Blood Gas Inspired Oxygen 2 Lactic Acid Level 3.41 *H 0.50-2.00 MMOL/L White Blood Count 13.3 H 4.3-11.0 10^3/uL Red Blood Count 4.46 3.80-5.11 10^6/uL Hemoglobin 11.3 L 11.5-16.0 g/dL Hematocrit 36 35-52 % Mean Corpuscular Volume 81 80-99 fL Mean Corpuscular Hemoglobin 25 25-34 pg Mean Corpuscular Hemoglobin Concent 31 L 32-36 g/dL Red Cell Distribution Width 13.8 10.0-14.5 % Platelet Count 206 130-400 10^3/uL Mean Platelet Volume 11.6 9.0-12.2 fL Immature Granulocyte % (Auto) 1 % Neutrophils (%) (Auto) 90 H 42-75 % Lymphocytes (%) (Auto) 8 L 12-44 % Monocytes (%) (Auto) 1 0-12 % Eosinophils (%) (Auto) 0 0-10 % Basophils (%) (Auto) 0 0-10 % Neutrophils # (Auto) 12.0 H 1.8-7.8 10^3/uL Lymphocytes # (Auto) 1.0 1.0-4.0 10^3/uL Monocytes # (Auto) 0.2 0.0-1.0 10^3/uL Eosinophils # (Auto) 0.0 0.0-0.3 10^3/uL Basophils # (Auto) 0.0 0.0-0.1 10^3/uL Immature Granulocyte # (Auto) 0.1 0.0-0.1 10^3/uL Neutrophils % (Manual) 89 % Lymphocytes % (Manual) 9 % Monocytes % (Manual) 1 % Eosinophils % (Manual) 1 % Blood Morphology Comment NORMAL Erythrocyte Sedimentation Rate 31 H 0-30 MM/HR Prothrombin Time 15.2 H 12.2-14.7 SEC INR Comment 1.2 0.8-1.4 Activated Partial Thromboplast Time 31 24-35 SEC D-Dimer 0.91 H 0.00-0.49 UG/ML Creatine Kinase MB 26.8 *H <6.6 NG/ML Myoglobin 2189.2 H 10.0-92.0 NG/ML Troponin I 5.138 *H <0.028 NG/ML B-Type Natriuretic Peptide 171.9 H <100.0 PG/ML Beta-Hydroxybutyrate (Chem panel) 0.47 H 0.00-0.27 MMOL/L Glucometer 374 H 70-110 MG/DL Test 11/10/21 03:58 11/10/21 04:20 11/10/21 05:15 11/10/21 06:45 Range/Units Glucometer 358 H 70-110 MG/DL Lactic Acid Level 2.94 *H 1.77 0.50-2.00 MMOL/L White Blood Count 20.2 H 4.3-11.0 10^3/uL Red Blood Count 5.32 H 3.80-5.11 10^6/uL Hemoglobin 13.6 # 11.5-16.0 g/dL Hematocrit 43 35-52 % Mean Corpuscular Volume 81 80-99 fL Mean Corpuscular Hemoglobin 26 25-34 pg Mean Corpuscular Hemoglobin Concent 32 32-36 g/dL Red Cell Distribution Width 14.1 10.0-14.5 % Platelet Count 254 130-400 10^3/uL Mean Platelet Volume 11.6 9.0-12.2 fL Immature Granulocyte % (Auto) 1 % Neutrophils (%) (Auto) 81 H 42-75 % Lymphocytes (%) (Auto) 10 L 12-44 % Monocytes (%) (Auto) 9 0-12 % Eosinophils (%) (Auto) 0 0-10 % Basophils (%) (Auto) 0 0-10 % Neutrophils # (Auto) 16.3 H 1.8-7.8 10^3/uL Lymphocytes # (Auto) 2.0 1.0-4.0 10^3/uL Monocytes # (Auto) 1.8 H 0.0-1.0 10^3/uL Eosinophils # (Auto) 0.0 0.0-0.3 10^3/uL Basophils # (Auto) 0.0 0.0-0.1 10^3/uL Immature Granulocyte # (Auto) 0.1 0.0-0.1 10^3/uL Neutrophils % (Manual) 82 % Lymphocytes % (Manual) 11 % Monocytes % (Manual) 7 % Blood Morphology Comment NORMAL Sodium Level 138 135-145 MMOL/L Potassium Level 3.8 3.6-5.0 MMOL/L Chloride Level 101 98-107 MMOL/L Carbon Dioxide Level 22 21-32 MMOL/L Anion Gap 15 H 5-14 MMOL/L Blood Urea Nitrogen 27 H 7-18 MG/DL Creatinine 1.65 H 0.60-1.30 MG/DL Estimat Glomerular Filtration Rate 35 BUN/Creatinine Ratio 16 Glucose Level 349 H 70-105 MG/DL Calcium Level 8.7 8.5-10.1 MG/DL Corrected Calcium 9.8 8.5-10.1 MG/DL Phosphorus Level 4.1 2.3-4.7 MG/DL Magnesium Level 1.6 1.6-2.4 MG/DL Total Bilirubin 0.4 0.1-1.0 MG/DL Aspartate Amino Transf (AST/SGOT) 73 H 5-34 U/L Alanine Aminotransferase (ALT/SGPT) 39 0-55 U/L Alkaline Phosphatase 111 40-136 U/L Total Creatine Kinase 1288 H 29-168 U/L Creatine Kinase MB 42.0 *H <6.6 NG/ML Myoglobin 2782.3 H 10.0-92.0 NG/ML Troponin I 7.943 *H <0.028 NG/ML Total Protein 6.9 6.4-8.2 GM/DL Albumin 2.6 L 3.2-4.5 GM/DL Test 11/10/21 09:50 11/10/21 11:30 11/10/21 11:57 Range/Units Blood Gas Puncture Site LT RADIAL Blood Gas Patient Temperature 36.3 Arterial Blood pH 7.37 7.37-7.43 Arterial Blood Partial Pressure CO2 45 35-45 MMHG Arterial Blood Partial Pressure O2 70 L 79-93 MMHG Arterial Blood HCO3 25 23-27 MMOL/L Arterial Blood Total CO2 26.8 21.0-31.0 MMOL/L Arterial Blood Oxygen Saturation 94 94-100 % Arterial Blood Base Excess 0.6 -2.5-2.5 MMOL/L [place] Test YES-POS Blood Gas Ventilator Setting NO Blood Gas Inspired Oxygen 1L NC Troponin I 8.184 *H <0.028 NG/ML Glucometer 266 H 70-110 MG/DL Radiology CT head/neck 11/09/21: IMPRESSION: CT head was unremarkable. CT maxillofacial shows no evidence of facial fracture. There is retention cyst or polyp in the right maxillary sinus. There is right periorbital soft tissue swelling. CT cervical spine shows mild degenerative findings with no acute fracture or subluxation. Spine CT 11/09/21: IMPRESSION: 1. No acute fracture or dislocation in the thoracic and lumbar spine. 2. 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 CXR 11/10/21: IMPRESSION: Cardiomegaly and poststernotomy change. Poor inspiration with some mild right basilar atelectasis. No pneumothorax or pleural fluid. Pelvic xray 11/10/21: IMPRESSION: Mild chronic changes as above with no acute fracture. Right shoulder xray 11/10/21 IMPRESSION: No acute abnormality of the right shoulder. Physical Exam-([facility]) Physical Exam Vital Signs VS - Last 72 Hours, by Label 11/09/21 11/09/21 11/10/21 11/10/21 22:35 22:35 03:45 03:59 Temp 36.0 Pulse 90 90 89 Resp B/P (MAP) 141/86 (104) 138/95 Pulse Ox 97 97 96 O2 Delivery Nasal Cannula Nasal Cannula Nasal Cannula O2 Flow Rate 2.00 2.00 2.00 11/10/21 11/10/21 11/10/21 11/10/21 04:00 05:34 05:45 06:00 Temp 36.0 Pulse 90 84 81 Resp B/P (MAP) 124/60 141/92 Pulse Ox 97 97 95 93 O2 Delivery Nasal Cannula Nasal Cannula Nasal Cannula O2 Flow Rate 1.00 2.00 2.00 11/10/21 11/10/21 11/10/21 11/10/21 06:15 06:30 07:00 07:00 Pulse 84 82 80 80 Resp B/P (MAP) 133/90 123/75 143/86 Pulse Ox 91 91 93 O2 Delivery Nasal Cannula Nasal Cannula Nasal Cannula O2 Flow Rate 2.00 2.00 2.00 11/10/21 11/10/21 11/10/21 11/10/21 07:55 08:00 09:00 10:00 Temp 35.9 Pulse 85 70 75 Resp 14 16 17 B/P (MAP) 136/87 108/70 125/79 Pulse Ox 94 91 92 O2 Delivery Nasal Cannula Nasal Cannula Nasal Cannula O2 Flow Rate 2.00 2.00 2.00 11/10/21 11/10/21 11/10/21 11/10/21 11:00 11:37 12:00 12:00 Temp 36.4 Pulse 78 80 Resp 20 16 B/P (MAP) 141/73 131/73 Pulse Ox 94 92 97 O2 Delivery Nasal Cannula Nasal Cannula Nasal Cannula O2 Flow Rate 2.00 1.00 2.00 11/10/21 12:10 Pulse Ox 89 O2 Delivery Nasal Cannula O2 Flow Rate 3.00 Capillary Refill : Less Than 3 Seconds General Appearance: obese Respiratory: lungs clear, normal breath sounds Cardiovascular: regular rate, rhythm, no murmur Gastrointestinal: normal bowel sounds, soft, tenderness (diffuse mild) Neurologic/Psychiatric: other (lethargic, opens eyes briefly and answers with one word answers to questions) Skin: other (erythema over face, severe intertriginous erythema with ulcer ations) Assessment/Plan Assessment/Plan Admission Status: Inpatient Order (span 2 midnights) Reason for Inpatient Admission: Rhabdomyolysis with YANET (1) Sepsis Status: Acute Assessment & Plan: Secondary to urinary tract infection, IVF and ceftriaxone. Qualifiers: (2) Lactic acidosis Status: Resolved Assessment & Plan: Suspect secondary to tissue hypoxia with rhabdo, resolved overnight with IVF. (3) Candidal intertrigo Status: Acute Assessment & Plan: Severe, diffuse, will treat with diflucan x 7 days. (4) Morbid obesity Status: Chronic (5) Hypothermia Status: Acute Qualifiers: Qualified Codes: T68.XXXA - Hypothermia, initial encounter (6) Renal insufficiency Status: Acute Assessment & Plan: Trending improved with IVF resuscitation, suspect secondary to dehydration and rhabdomyolysis (7) UTI (urinary tract infection) Status: Acute Assessment & Plan: Culture pending, ceftriaxone started. (8) Uncontrolled diabetes mellitus Status: Chronic Assessment & Plan: Sliding scale insulin, diabetic diet when tolerating oral. Qualifiers: Qualified Codes: E11.65 - Type 2 diabetes mellitus with hyperglycemia (9) Elevated troponin Status: Acute Assessment & Plan: Cardiology consulted, appreciate recommendations. (10) Contusion of right shoulder Status: Acute Assessment & Plan: Xray without fracture Qualifiers: Qualified Codes: S40.011A - Contusion of right shoulder, initial encounter (11) Fall from standing Status: Acute Assessment & Plan: PT when able Qualifiers: Qualified Codes: W19.XXXA - Unspecified fall, initial encounter (12) Rhabdomyolysis Status: Acute Assessment & Plan: IVF, monitor CK and creatinine Qualifiers: Qualified Codes: T79.6XXA - Traumatic ischemia of muscle, initial encounter (13) Hypertension Status: Chronic Qualifiers: Qualified Codes: I10 - Essential (primary) hypertension (14) Diabetes mellitus, type 2 Status: Chronic (15) Hyperlipidemia Status: Chronic (16) DVT prophylaxis Status: Acute Assessment & Plan: Enoxaparin DEVYN HAUSER MD November 10, 2021 09:43
[2021-11-10 09:55] LABS: ABG BASE EXCESS 0.6 MMOL/L (-2.5-2.5); ABG OXYGEN SATURATION 94 % (94-100); ABG PCO2 45 MMHG (35-45); ABG PH 7.37 (7.37-7.43); ABG PO2 70 MMHG (79-93); ABG TCO2 26.8 MMOL/L (21.0-31.0); ALLENS TEST YES-POS
[2021-11-10 09:56] LABS: INSPIRED O2 1L NC; PATIENT TEMP 36.3; VENTILATOR NO
[2021-11-10] MEDS: MICONAZOLE 2% POWDER (DESENEX AF) 90 GM TOP SCH ×2 (10:26→20:08)
[2021-11-10] MEDS: RT-ALBUTEROL SULF 2.5 MG/3 ML PRE-MIX VIAL INH SCH ×2 (11:37→21:34)
--- NOTE | 2021-11-10 16:53 | Consultation-Cardiology ---
HPI-Cardiology Cardiology Consultation: Date of Consultation 11/10/21 Date of Admission 11/09/21 Attending Physician Francisco Aguilar MD Admitting Physician Admitting Physician: Tisha Hauser MD Attending Physician: Tisha Hauser MD Consulting Physician ROGER TUCKER JR, MD HPI: Time Seen by a Provider: 18:25 Chief Complaint: REASON OF CONSULTATION: Elevated troponin level. I had the pleasure of seeing Ashlie in the intensive care unit at [facility] in [place], [place] today. She has a history of coronary artery disease with previous coronary artery bypass surgery but details are unknown. She does not follow with a service operations manager on a regular basis. She is answering questions mainly with very short sentences and will not open her eyes. She tells me she fell at home because she "let herself go". She would not elucidate further but when asked if she was trying to hurt herself, she said no. I did speak with the emergency room provider in [place] last evening who told me the patient had apparently fallen down at home and was discovered after she had laid on the floor for 36 hours. She was brought to the outside emergency room by ambulance. Her laboratory showed probable rhabdomyolysis and she was transferred to our hospital for further treatment and evaluation. She also had an elevated troponin level and because of this, a cardiology consultation was requested. She denies any chest discomfort or dyspnea. She denies palpitations, lightheadedness, or syncope. When I asked her about the peripheral edema she has, she had no comment. As with other providers who have spoken with this patient, it is very difficult to obtain a history from her. Certain portions of this document may have been dictated utilizing voice recognition technology. Inherent to this technology, typographical and grammatical errors may exist. As much as I am diligent to identify and correct these mistakes, some errors may remain in the document. Review of Systems-Cardiology Review of Systems Other comments Review of 10 organ systems is as per the history of present illness, otherwise negative. However, due to her limited cooperativity, some elements may be missing from the review of systems. ICE-Xuliij-Qigpon Hx Patient Social History Smoking Status: Unknown if Ever Smoked Have you traveled recently?: No Alcohol Use?: No Pt feels they are or have been: No Immunizations Up To Date Date of Influenza Vaccine: May 18, 2011 Past Medical History PMH As described under Assessment. Family Medical History Family Medical History: She did not report a family history of premature coronary artery disease. Allergies and Home Medications Allergies Coded Allergies: No Known Drug Allergies (Unverified , 07/21/11) Patient Home Medication List Home Medication List Reviewed: Yes No Active Prescriptions or Reported Meds Exam Vital Signs Vital Signs Date Time Temp Pulse Resp B/P (MAP) Pulse Ox O2 Delivery O2 Flow Rate FiO2 11/10/21 18:00 76 29 151/81 96 Room Air 11/10/21 17:00 3.00 11/10/21 16:00 35.7 Physical Exam General: Alert but flat affect and would not open eyes. No acute distress. Well nourished and appears older than stated age. Eye: Extraocular movements are intact. Conjunctivae are clear. There are no xanthelasma. HENT: Normocephalic. Atraumatic. Carotid pulsations 2/2 without bruits. Neck: Jugular venous pressure does not appear elevated. No thyromegaly appreciated. Respiratory: Lungs are clear to auscultation but decreased at the bases bilaterally. Respirations are non-labored. Breath sounds are equal. Symmetrical chest wall expansion. Cardiovascular: Normal rate. Regular rhythm. No murmur. No gallop. Point of maximal impulse is not appear displaced. Good pulses equal in all extremities. 2+ bilateral pretibial edema with scattered areas of erythema and some small open wounds. Gastrointestinal: Soft. Normal bowel sounds. Skin: Skin turgor is normal. There is no pallor. Neurologic: Awake and alert but only seemed to be oriented to person. Cranial nerves 3-12 appear grossly intact. The patient would not cooperate with a motor exam. Psychiatric: Flat affect. Labs Laboratory Tests Test 11/09/21 22:23 11/09/21 22:50 11/09/21 23:05 11/09/21 23:26 Range/Units Urine Opiates Screen NEGATIVE NEGATIVE Urine Oxycodone Screen NEGATIVE NEGATIVE Urine Methadone Screen NEGATIVE NEGATIVE Urine Propoxyphene Screen NEGATIVE NEGATIVE Urine Barbiturates Screen NEGATIVE NEGATIVE Ur Tricyclic Antidepressants Screen NEGATIVE NEGATIVE Urine Phencyclidine Screen NEGATIVE NEGATIVE Urine Amphetamines Screen NEGATIVE NEGATIVE Urine Methamphetamines Screen NEGATIVE NEGATIVE Urine Benzodiazepines Screen NEGATIVE NEGATIVE Urine Cocaine Screen NEGATIVE NEGATIVE Urine Cannabinoids Screen NEGATIVE NEGATIVE Urine Color YELLOW Urine Clarity CLEAR Urine pH 5.5 5-9 Urine Specific [place] >=1.030 1.016-1.022 Urine Protein 3+ H NEGATIVE Urine Glucose (UA) 3+ H NEGATIVE Urine Ketones NEGATIVE NEGATIVE Urine Nitrite NEGATIVE NEGATIVE Urine Bilirubin 1+ H NEGATIVE Urine Urobilinogen 0.2 < = 1.0 MG/DL Urine Leukocyte Esterase NEGATIVE NEGATIVE Urine RBC (Auto) 3+ H NEGATIVE Urine RBC 0-2 /HPF Urine WBC 10-25 H /HPF Urine Squamous Epithelial Cells 0-2 /HPF Urine Renal Epithelial Cells NONE /HPF Urine Crystals NONE /LPF Urine Bacteria LARGE H /HPF Urine Casts NONE /LPF Urine Mucus NEGATIVE /LPF Urine Culture Indicated YES Influenza Type A (RT-PCR) Not Detected Not Detecte Influenza Type B (RT-PCR) Not Detected Not Detecte SARS-CoV-2 RNA (RT-PCR) Not Detected Not Detecte Sodium Level 137 135-145 MMOL/L Potassium Level 4.1 3.6-5.0 MMOL/L Chloride Level 96 L 98-107 MMOL/L Carbon Dioxide Level 21 21-32 MMOL/L Anion Gap 20 H 5-14 MMOL/L Blood Urea Nitrogen 27 H 7-18 MG/DL Creatinine 1.71 H 0.60-1.30 MG/DL Estimat Glomerular Filtration Rate 34 BUN/Creatinine Ratio 16 Glucose Level 490 *H 70-105 MG/DL Lactic Acid Level 2.91 *H 0.50-2.00 MMOL/L Calcium Level 10.0 8.5-10.1 MG/DL Corrected Calcium 10.7 H 8.5-10.1 MG/DL Magnesium Level 1.7 1.6-2.4 MG/DL Total Bilirubin 0.8 0.1-1.0 MG/DL Aspartate Amino Transf (AST/SGOT) 88 H 5-34 U/L Alanine Aminotransferase (ALT/SGPT) 46 0-55 U/L Alkaline Phosphatase 148 H 40-136 U/L Total Creatine Kinase 1577 H 29-168 U/L C-Reactive Protein High Sensitivity 13.27 H 0.00-0.50 MG/DL Total Protein 8.5 H 6.4-8.2 GM/DL Albumin 3.1 L 3.2-4.5 GM/DL Amylase Level 131 H 25-125 U/L Lipase 11 8-78 U/L Procalcitonin 0.10 H <0.10 NG/ML TSH Pershing Testing 2.24 0.35-4.94 UIU/ML Test 11/10/21 01:13 11/10/21 01:26 11/10/21 01:44 11/10/21 02:11 Range/Units Blood Gas Puncture Site LEFT RADIAL Blood Gas Patient Temperature 36.9 Arterial Blood pH 7.36 L 7.37-7.43 Arterial Blood Partial Pressure CO2 46 H 35-45 MMHG Arterial Blood Partial Pressure O2 88 79-93 MMHG Arterial Blood HCO3 26 23-27 MMOL/L Arterial Blood Total CO2 27.2 21.0-31.0 MMOL/L Arterial Blood Oxygen Saturation 97 94-100 % Arterial Blood Base Excess 0.8 -2.5-2.5 MMOL/L Vernon Test POSITIVE Blood Gas Ventilator Setting NO Blood Gas Inspired Oxygen 2 Lactic Acid Level 3.41 *H 0.50-2.00 MMOL/L White Blood Count 13.3 H 4.3-11.0 10^3/uL Red Blood Count 4.46 3.80-5.11 10^6/uL Hemoglobin 11.3 L 11.5-16.0 g/dL Hematocrit 36 35-52 % Mean Corpuscular Volume 81 80-99 fL Mean Corpuscular Hemoglobin 25 25-34 pg Mean Corpuscular Hemoglobin Concent 31 L 32-36 g/dL Red Cell Distribution Width 13.8 10.0-14.5 % Platelet Count 206 130-400 10^3/uL Mean Platelet Volume 11.6 9.0-12.2 fL Immature Granulocyte % (Auto) 1 % Neutrophils (%) (Auto) 90 H 42-75 % Lymphocytes (%) (Auto) 8 L 12-44 % Monocytes (%) (Auto) 1 0-12 % Eosinophils (%) (Auto) 0 0-10 % Basophils (%) (Auto) 0 0-10 % Neutrophils # (Auto) 12.0 H 1.8-7.8 10^3/uL Lymphocytes # (Auto) 1.0 1.0-4.0 10^3/uL Monocytes # (Auto) 0.2 0.0-1.0 10^3/uL Eosinophils # (Auto) 0.0 0.0-0.3 10^3/uL Basophils # (Auto) 0.0 0.0-0.1 10^3/uL Immature Granulocyte # (Auto) 0.1 0.0-0.1 10^3/uL Neutrophils % (Manual) 89 % Lymphocytes % (Manual) 9 % Monocytes % (Manual) 1 % Eosinophils % (Manual) 1 % Blood Morphology Comment NORMAL Erythrocyte Sedimentation Rate 31 H 0-30 MM/HR Prothrombin Time 15.2 H 12.2-14.7 SEC INR Comment 1.2 0.8-1.4 Activated Partial Thromboplast Time 31 24-35 SEC D-Dimer 0.91 H 0.00-0.49 UG/ML Creatine Kinase MB 26.8 *H <6.6 NG/ML Myoglobin 2189.2 H 10.0-92.0 NG/ML Troponin I 5.138 *H <0.028 NG/ML B-Type Natriuretic Peptide 171.9 H <100.0 PG/ML Beta-Hydroxybutyrate (Chem panel) 0.47 H 0.00-0.27 MMOL/L Glucometer 374 H 70-110 MG/DL Test 11/10/21 03:58 11/10/21 04:20 11/10/21 05:15 11/10/21 06:45 Range/Units Glucometer 358 H 70-110 MG/DL Lactic Acid Level 2.94 *H 1.77 0.50-2.00 MMOL/L White Blood Count 20.2 H 4.3-11.0 10^3/uL Red Blood Count 5.32 H 3.80-5.11 10^6/uL Hemoglobin 13.6 # 11.5-16.0 g/dL Hematocrit 43 35-52 % Mean Corpuscular Volume 81 80-99 fL Mean Corpuscular Hemoglobin 26 25-34 pg Mean Corpuscular Hemoglobin Concent 32 32-36 g/dL Red Cell Distribution Width 14.1 10.0-14.5 % Platelet Count 254 130-400 10^3/uL Mean Platelet Volume 11.6 9.0-12.2 fL Immature Granulocyte % (Auto) 1 % Neutrophils (%) (Auto) 81 H 42-75 % Lymphocytes (%) (Auto) 10 L 12-44 % Monocytes (%) (Auto) 9 0-12 % Eosinophils (%) (Auto) 0 0-10 % Basophils (%) (Auto) 0 0-10 % Neutrophils # (Auto) 16.3 H 1.8-7.8 10^3/uL Lymphocytes # (Auto) 2.0 1.0-4.0 10^3/uL Monocytes # (Auto) 1.8 H 0.0-1.0 10^3/uL Eosinophils # (Auto) 0.0 0.0-0.3 10^3/uL Basophils # (Auto) 0.0 0.0-0.1 10^3/uL Immature Granulocyte # (Auto) 0.1 0.0-0.1 10^3/uL Neutrophils % (Manual) 82 % Lymphocytes % (Manual) 11 % Monocytes % (Manual) 7 % Blood Morphology Comment NORMAL Sodium Level 138 135-145 MMOL/L Potassium Level 3.8 3.6-5.0 MMOL/L Chloride Level 101 98-107 MMOL/L Carbon Dioxide Level 22 21-32 MMOL/L Anion Gap 15 H 5-14 MMOL/L Blood Urea Nitrogen 27 H 7-18 MG/DL Creatinine 1.65 H 0.60-1.30 MG/DL Estimat Glomerular Filtration Rate 35 BUN/Creatinine Ratio 16 Glucose Level 349 H 70-105 MG/DL Calcium Level 8.7 8.5-10.1 MG/DL Corrected Calcium 9.8 8.5-10.1 MG/DL Phosphorus Level 4.1 2.3-4.7 MG/DL Magnesium Level 1.6 1.6-2.4 MG/DL Total Bilirubin 0.4 0.1-1.0 MG/DL Aspartate Amino Transf (AST/SGOT) 73 H 5-34 U/L Alanine Aminotransferase (ALT/SGPT) 39 0-55 U/L Alkaline Phosphatase 111 40-136 U/L Total Creatine Kinase 1288 H 29-168 U/L Creatine Kinase MB 42.0 *H <6.6 NG/ML Myoglobin 2782.3 H 10.0-92.0 NG/ML Troponin I 7.943 *H <0.028 NG/ML Total Protein 6.9 6.4-8.2 GM/DL Albumin 2.6 L 3.2-4.5 GM/DL Test 11/10/21 09:50 11/10/21 11:30 11/10/21 11:57 11/10/21 17:27 Range/Units Blood Gas Puncture Site LT RADIAL Blood Gas Patient Temperature 36.3 Arterial Blood pH 7.37 7.37-7.43 Arterial Blood Partial Pressure CO2 45 35-45 MMHG Arterial Blood Partial Pressure O2 70 L 79-93 MMHG Arterial Blood HCO3 25 23-27 MMOL/L Arterial Blood Total CO2 26.8 21.0-31.0 MMOL/L Arterial Blood Oxygen Saturation 94 94-100 % Arterial Blood Base Excess 0.6 -2.5-2.5 MMOL/L Vernon Test YES-POS Blood Gas Ventilator Setting NO Blood Gas Inspired Oxygen 1L NC Troponin I 8.184 *H <0.028 NG/ML Glucometer 266 H 255 H 70-110 MG/DL Radiology ECHOCARDIOGRAM (11/10/2021): SUMMARY: 1. This is a technically difficult study due to poor image quality secondary to patient's body habitus. Intravenous contrast was administered to enhance image quality. 2. Left ventricle: The cavity size is normal. There is severe concentric hypertrophy. Systolic function is normal. The estimated ejection fraction is 60- 65%. There were no regional wall motion abnormalities identified. Features are consistent with a pseudonormal left ventricular filling pattern, with concomitant abnormal relaxation and increased filling pressure (grade 2 diastolic dysfunction). 3. Aortic valve: There is mild aortic valve sclerosis. 4. Pulmonary arteries: The pulmonary artery pressure cannot be estimated on this study due to inadequate tricuspid regurgitant envelope. ECG Impression ECG Comment Electrocardiogram from 11/10 shows sinus rhythm with first-degree AV block, probable old anterior infarct and lateral ST-T wave changes, possibly consistent with ischemia. Diagnosis/Problems Diagnosis/Problems (1) Elevated troponin Status: Acute Assessment & Plan: I suspect this is due to rhabdomyolysis and does not represent an acute coronary syndrome. However, once she recovers from the acute, noncardiac illness, we may want to consider an ischemic evaluation. (2) Coronary artery disease without angina pectoris Assessment & Plan: Despite her fall and elevated troponin, she is not reporting any chest discomfort. She has borderline ischemic changes on her electrocardiogram. As above, I suspect the troponin elevation is due to rhabdomyolysis. I recommend starting her on low-dose aspirin and statin medication. If her blood pressure remains good tomorrow, I will consider starting low-dose beta-ran at that time. I should note, her echocardiogram from today showed a normal ejection fraction. (3) Primary hypertension Assessment & Plan: Underlying currentShe has a reported history of hypertension but may not have been taking any medication for this at home. In light of the disease, I will consider starting low-dose beta-ran tomorrow if she remains normotensive. (4) Mixed hyperlipidemia Assessment & Plan: As above, will start her on statin medication. I have added a lipid panel to the previous blood sample. (5) Rhabdomyolysis Status: Acute Assessment & Plan: She is receiving high-dose intravenous fluids under the direction of the hospitalist. (6) Morbid obesity Status: Chronic Assessment & Plan: She needs to work on weight loss. Problem Qualifiers (1) Rhabdomyolysis: Rhabdomyolysis type: traumatic Encounter type: initial encounter Qualified Codes: T79.6XXA - Traumatic ischemia of muscle, initial encounter ROGER TUCKER JR, MD November 10, 2021 16:53
[2021-11-10] MEDS: fentaNYL INJ 100 MCG/2 ML AMP IVP PRN (17:56)
[2021-11-10 18:47] LABS: TRIGLYCERIDES 462 MG/DL (<150); VLDL CHOLESTEROL 92 MG/DL (5-40)
[2021-11-10 18:52] LABS: CHOLESTEROL 374 MG/DL (< 200)
[2021-11-10 18:53] LABS: HDL CHOLESTEROL 46 MG/DL (40-60)
--- NOTE | 2021-11-10 18:58 | CONSULTATION REPORT ---
DATE OF SERVICE: 11/10/2021 ATTENDING PRIMARY CARE PHYSICIAN: Dr. Aguilar. ADMITTING PHYSICIAN: Tisha Hauser MD. HISTORY OF PRESENT ILLNESS: The patient is a 61-year-old female, who was brought in by EMS after the patient's family had seen her nonresponsive in the bathroom. She was initially confused; however, was able to answer some questions. She reported that she fell approximately a day and half earlier and lost her balance and could not get up. Upon arrival, she did have a slowed speech; however, with IV hydration did improve her orientation. She did state hitting her face and a CT scan of the head, maxillofacial bones, and neck were performed, which did not show any abnormalities; however, periorbital edema along the right eye. The patient does have a number of medical comorbidities including diabetes, coronary artery disease, hypertension, and hypercholesterolemia. The patient was admitted to the ICU for monitoring. She continues to be somewhat confused. Otherwise, her [place] coma scale is 13. Upon examination of the orbits, there is some edema around the bilateral orbitals with the right being worse than the left, she is also able to open her eyes and has what appears to be extraocular movements intact. PAST MEDICAL HISTORY: Hypertension, hypercholesterolemia, coronary artery disease, and insulin-dependent diabetes. PAST SURGICAL HISTORY: Coronary artery bypass grafting, which was complicated with sternal wound infection. ALLERGIES: No known drug allergies. MEDICATIONS: Amlodipine 10 mg daily, aspirin 81 mg daily, fenofibrate 48 mg daily, fluoxetine 20 mg daily, glimepiride 6 mg daily, detemir insulin 50 units daily, metoprolol 50 mg daily, pravastatin 80 mg b.i.d., and simvastatin 20 mg daily. SOCIAL HISTORY: Negative smoke and negative alcohol. FAMILY HISTORY: Noncontributory. REVIEW OF SYSTEMS: This is an obese female, who is arousable; however, confused, but is able to move all four extremities purposefully upon command. She does not report any visual changes or any double vision. No headache. No nausea or vomiting. No known fever, chills, and no recent inadvertent weight loss. All other review of systems negative. PHYSICAL EXAMINATION: VITAL SIGNS: Temperature 36.0, blood pressure 147/85, pulse 82, respirations 22, and pulse ox 100% on 3 liters oxygen OxyMask. CHEST: A few scattered rales and rhonchi bilaterally. HEART: Regular and no murmurs. EXTREMITIES: Skin changes of the bilateral lower extremities consistent with chronic venous insufficiency, +1/3 bilateral lower extremity edema. Negative Homans sign. HEENT: No scleral icterus and no cervical lymphadenopathy. Bilateral periorbital edema with the right worse than the left. ABDOMEN: Soft, nontender, and nondistended. NEUROLOGIC: No focal deficits. [place] coma scale is 13. No headaches or any visual changes. SKIN: There is edema of bilateral upper extremities as well as lower extremities. There are no tight compartments to indicate any active compartment syndrome at this time. ASSESSMENT AND PLAN: A 61-year-old female with same level fall with bilateral periorbital edema. She also does have elevated CK-MB as well as a troponin; however, this is likely due to ischemic changes from pressure necrosis on her muscles along the anterior aspect of her body; however, there is no compartment syndrome. She will need continued aggressive hydration as well as possible alkalinization of her urine as well as continued insulin for tight glycemic control. It appears that she did have a concussion with loss of consciousness; however, this may have been exacerbated due to other medical problems including blood sugar abnormalities. We will recommend continued medical management for now and continued neurologic monitoring. Job ID: [id number] DocumentID: [id number] Dictated Date: 11/10/2021 17:50:06 Warehouse Delivery Driver Date: 11/10/2021 18:58:25 Dictated By: LUCA GUTIERREZ MD [facility]
[2021-11-10] MEDS: cefTRIAXone 1 GM PRE-MIX 50 ML IV SCH (20:07)
[2021-11-10] MEDS ORDERED: ROSUVASTATIN 20 MG (CRESTOR) TABLET PO SCH (21:00)
[2021-11-11] MEDS: inSUlin ASPART (NovoLOG) 1 UNIT/0.01 ML (CHARGE PER UNIT) SC SCH ×5 (01:28→23:41)
[2021-11-11] MEDS: NS IV 1000 ML 1,000 ML IV SCH ×3 (02:12→16:24)
[2021-11-11 05:08] LABS: BASOPHILS # (AUTO) 0.1 10^3/uL (0.0-0.1); BASOPHILS % (AUTO) 0 % (0-10); EOSINOPHILS % (AUTO) 0 % (0-10); HEMATOCRIT 39 % (35-52); HEMOGLOBIN 11.8 g/dL (11.5-16.0); LYMPHOCYTES # (AUTO) 3.1 10^3/uL (1.0-4.0); LYMPHOCYTES % (AUTO) 23 % (12-44); MEAN CORPUSCULAR HEMOGLOBIN 26 pg (25-34); MEAN CORPUSCULAR HGB CONC 30 g/dL (32-36); MEAN CORPUSCULAR VOLUME 84 fL (80-99); MEAN PLATELET VOLUME 11.6 fL (9.0-12.2); MONOCYTES # (AUTO) 1.2 10^3/uL (0.0-1.0); MONOCYTES % (AUTO) 9 % (0-12); NEUTROPHILS # (AUTO) 9.2 10^3/uL (1.8-7.8); NEUTROPHILS % (AUTO) 67 % (42-75); PLATELET COUNT 211 10^3/uL (130-400); WHITE BLOOD COUNT 13.6 10^3/uL (4.3-11.0)
[2021-11-11 05:27] LABS: ALBUMIN 2.3 GM/DL (3.2-4.5); POTASSIUM 3.5 MMOL/L (3.6-5.0)
[2021-11-11 05:28] LABS: CALCIUM 8.2 MG/DL (8.5-10.1)
[2021-11-11 05:29] LABS: TOTAL PROTEIN 5.9 GM/DL (6.4-8.2)
[2021-11-11 05:31] LABS: BILIRUBIN,TOTAL 0.3 MG/DL (0.1-1.0)
[2021-11-11 05:32] LABS: PHOSPHORUS 3.1 MG/DL (2.3-4.7)
[2021-11-11 05:33] LABS: CREATININE SERUM 1.4 MG/DL (0.60-1.30)
[2021-11-11 05:36] LABS: MAGNESIUM 1.9 MG/DL (1.6-2.4)
[2021-11-11 05:49] LABS: CREATINE KINASE MB 9.7 NG/ML (<6.6)
[2021-11-11] MEDS: RT-ALBUTEROL SULF 2.5 MG/3 ML PRE-MIX VIAL INH SCH ×4 (07:11→22:11)
[2021-11-11 07:22] VITALS: BP 154/75
[2021-11-11] MEDS ORDERED: FUROSEMIDE 40 MG/4 ML INJ (LASIX) IVP ONE ×3 (07:30→19:00)
[2021-11-11] MEDS: POTASSIUM CL 10MEQ/50ML IVPB 50 ML IV SCH ×2 (07:34→09:20)
--- NOTE | 2021-11-11 07:55 | Diagnostic Imaging Report ---
EXAMINATION: Chest 1 view HISTORY: Sepsis COMPARISON: 11/10/2021 FINDINGS: There are patchy bilateral interstitial and airspace opacities. Heart size is enlarged. No pneumothorax. No pleural effusion. Median sternotomy wires are aligned. There are coronary artery bypass graft markers. IMPRESSION: 1. Patchy bilateral interstitial and airspace opacities concerning for pneumonia. Dictated by: Dictated on workstation # [id number]
[2021-11-11] MEDS ORDERED: PROPOFOL DRIP (ICU) 100 ML IV ONE (08:00)
[2021-11-11 08:10] VITALS: BP 192/89
[2021-11-11] MEDS ORDERED: RT-ALBUTEROL/IPRATROPIUM 3 ML (DUONEB) VIAL ONE (08:10)
--- NOTE | 2021-11-11 08:34 | Tele-ICU Progress Note ---
Subjective Date Seen by a Provider: November 11, 2021 Time Seen by a Provider: 08:34 Subjective/Events-last exam (Tele-ICU Physician , Progress Note ) Available chart/ vitals / labs / Images reviewed Video assessment done using teleICU camera, rest of exam as per RN Discussed with RN , EXAM PER RN Events overnight : increase d need for o2 Afebrile FiO2 - I/O = pos 3 L Drips: ns 250 Pressors: , hemodynamically stable Consultants: Hospital course: (11/10) 61yF Admit s/p unwitnessed fall @ home. Down approx 36 hours. DX: fall from standing, Uncontrolled DM, Lactic Acidosis, UTI, Hypothermia, sepsis, dehydration,RI, Candidal Inertrigo, Inability to care for self, R shoulder contusion, Morbid obesity, Elev Trop, Early Rhabdo, Non complaince (11/11) Tachypneic & hypoxic. Treated for fluid overload. Failed Bipap. Intubated. Brief cardiac arrest - due to hypoxia - 1 amp epi given , 1 round ACLS A/P Acute resp failure - suspected VO with increasing needs for O2 overning- lasix given , IVF stopped - faled NIPPV this am --INTUBATED 11/11 Brief cardiac arrest - due to hypoxia - 1 amp epi given , 1 round ACLS - fully AAO prior to arrest , intubated without meds - follow mental status CAD - elv trop - as per cards - EF 10/2021 - EF 60% Rhabdo - very mild - stop IVF morbid obesity YANET - cr improving , follow Suspected UIT on arrival to ER - sepsis protocol was initiated- inn ER - 3L NS - ceftriaxone initiated DM II - poorly controlled S/p fall on tresentation - CT cerv - no trauma -Contusion of right shoulder Lines : R IJ to be place 11/11 (Central Line Necessity Reviewed) [place]: 11/10 OG: + Nutrition: Analgesia: Anxiety/ delirium VTE Prophylaxis: ramiro 40 Stress Ulcer Prophylaxis: ppi Plans in collaboration with bedside consultants and IM MDs. Discussed with RN to reach out if any questions or concerns A total of 50 minutes of critical care time was devoted to this patient today, required to treat and/or prevent further deterioration of critical care condition ( as above) . Sepsis Event Evaluation Height, Weight, BMI Height: 5'2" Weight: 226lbs. oz. 102.631002fn; 40.69 BMI Method: Focused Exam Lactate Level 11/10/21 01:26: Lactic Acid Level 3.41*H 11/10/21 04:20: Lactic Acid Level 2.94*H 11/10/21 06:45: Lactic Acid Level 1.77 Time of Focused Exam: 00:30 Exam Exam Patient acknowledged, consented, and participated in this virtual visit which was conducted using real time audio/video Vital Signs Date Time Temp Pulse Resp B/P (MAP) Pulse Ox O2 Delivery O2 Flow Rate FiO2 11/11/21 07:36 36.0 11/11/21 07:22 80 28 97 100.00 11/11/21 07:00 84 11/11/21 06:00 77 20 142/71 98 OxyMask 2.00 11/11/21 05:00 75 23 139/77 96 OxyMask 2.00 11/11/21 04:30 92 OxyMask 2.00 11/11/21 04:00 75 23 143/68 94 OxyMask 2.00 11/11/21 03:00 78 22 138/67 96 OxyMask 1.00 11/11/21 02:00 73 18 150/72 96 OxyMask 1.00 11/11/21 01:00 76 18 145/83 98 OxyMask 1.00 11/11/21 01:00 76 11/11/21 00:00 95 OxyMask 1.00 11/11/21 00:00 78 19 136/78 98 OxyMask 1.00 11/10/21 23:00 79 18 140/71 98 OxyMask 1.00 11/10/21 22:27 36.0 11/10/21 22:00 78 20 134/84 98 OxyMask 1.00 11/10/21 21:35 99 OxyMask 1.00 11/10/21 21:00 72 25 128/94 100 OxyMask 1.00 11/10/21 20:30 96 OxyMask 1.00 11/10/21 20:00 72 22 158/88 94 OxyMask 1.00 11/10/21 19:31 36.3 11/10/21 19:00 73 11/10/21 19:00 73 17 147/73 91 OxyMask 1.00 5/26/22 18:00 76 29 151/81 96 Room Air 11/10/21 17:58 Room Air 11/10/21 17:00 82 22 147/85 100 OxyMask 3.00 11/10/21 16:00 97 OxyMask 3.00 11/10/21 16:00 35.7 11/10/21 16:00 73 24 154/82 100 OxyMask 3.00 11/10/21 15:14 OxyMask 3.00 11/10/21 14:00 76 17 136/70 97 Nasal Cannula 3.00 11/10/21 13:00 76 11/10/21 13:00 77 17 122/71 100 Nasal Cannula 3.00 11/10/21 12:10 89 Nasal Cannula 3.00 11/10/21 12:00 97 Nasal Cannula 1.00 11/10/21 12:00 36.4 11/10/21 12:00 80 16 131/73 97 Nasal Cannula 2.00 11/10/21 11:37 92 Nasal Cannula 1.00 11/10/21 11:00 78 20 141/73 94 Nasal Cannula 2.00 11/10/21 10:00 75 17 125/79 92 Nasal Cannula 2.00 11/10/21 09:00 70 16 108/70 91 Nasal Cannula 2.00 I & O 11/11/21 07:00 Intake Total 1100 ml Output Total 650 ml Balance 450 ml Height & Weight Height: 5'2" Weight: 226lbs. oz. 102.529099xt; 40.69 BMI Method: General Appearance: Obese (MORBIDLY), Other (MORBIDLY OBESE, INCONTINENT OF BOWEL AND BLADDER, VERY MALODOROUS. PT IS VERY COLD AND SHIVERING. ) HEENT: PERRL/EOMI, TMs Normal, Other (ENTIRE FACE IS SWOLLEN AND EYES ARE ALMOST SWOLLEN SHUT, WITH GENERALIZED DEPENDENT EDEMA--NO ACTUAL HEMATOMAS OR BRUISING TO FACE-- AND CHEEKS AND FOREHEAD ARE VERY ERYTHEMATOUS---RIGHT > LEFT SIDE. NO BRUISING OR PETECHIAE OR OPEN WOUNDS. NO SUBCONJUNCTIVAL HEMORRHAGE OR HYPHEMA. ORAL MUCOSA IS EXREMELY DRY AND HAS EXTREMELY POOR ORAL HYGIENE, WITH VERY POOR DENTITION. DRIED SECRETIONS ALL AROUND MOUTH, CHIN AND CHEEKS. NOSE APPEARS TO BE VERY UPTURNED AT THE TIP, BUT OTHERWISE NO EVIDENCE OF TRAUMA. NO DRIED BLOOD IN NARES. ) Neck: Other (IN CERVICAL COLLAR. NON-TENDER ON REMOVAL OF COLLAR. AREA OF SKIN BREAKDOWN AND EARLY SCAB FORMATION TO RIGHT SUPRACLAVICULAR AREA. ) Respiratory: Chest Non Tender, Normal Breath Sounds, No Accessory Muscle Use, No Respiratory Distress Cardiovascular: Regular Rate, Rhythm Capillary Refill: Less Than 3 Seconds Gastrointestinal: normal bowel sounds, soft, tenderness (diffuse mild) Extremity: Pedal Edema (1+ LOWER LEG/FEET EDEMA, BUT SKIN TO LOWER LEGS IS SHRIVELED UP. HAS OLD SCABBED WOUNDS TO LEFT MADRIGAL--NO SIGNS OF INFECTION. ), Pelvis Stable, Slow Capillary Refill, Other (FINGERTIPS CYANOTIC. RIGHT SHOULDER TENDERNESS, NO EXTERNAL EVIDENCE OF TRAUMA. LIMITED ROM DUE TO PAIN, DISTAL MOTOR AND SENSORY INTACT. NO TENDERNESS TO LEFT ARM, OR TO EITHER LEG. ) Neurologic/Psychiatric: Alert, No Motor/Sensory Deficits (MOVES ALL EXTREMITIES EQUALLY--NO FOCAL DEFICITS, BUT HAS PROFOUND GENERALIZED WEAKNESS. ), Other (ORIENTED TO SELF, PLACE SITUATION, SOMEWHAT DISORIENTED TO TIME, BUT ABLE TO RECALL EVENTS. SPEECH IS SLOW AND THICK-TONGUED, BUT ORAL MUCOSA IS EXTREMELY DRY. ) Skin: Cool, Pallor, Other (SKIN IS VERY COLD, DRY, WITH ACROCYANOSIS. PT HAS EXTENSIVE MARTY INTERTRIGO UNDER BREASTS, IN SKIN FOLDS OF PANNUS AND BILATERAL INGUINAL /GROIN AREAS AND GLUTEAL FOLD; OLD APPEARING SCABBED WOUNDS TO LEFT SHOULDER AND FOREARM. NO SIGNS OF INFECTION. . ) Results Lab Laboratory Tests 11/09/21 23:26 11/10/21 01:44 11/10/21 05:15 11/11/21 04:45 Assessment/Plan Assessment/Plan ` SARAH ROTH MD November 11, 2021 08:34
--- NOTE | 2021-11-11 08:39 | Cardiology Progress Note ---
Progress Note-Cardiology Events since last exam Date Seen by Provider: November 11, 2021 Time Seen by Provider: 08:34 Events since last exam I was initially following her for an elevated troponin level but this morning she developed respiratory distress. She then became unresponsive. The ER provider was getting ready to intubate the patient and then she developed pulseless electrical activity. ACLS protocol was initiated. She ultimately regained ROSC and was intubated. She is now intubated and minimally responsive. She is not currently on any vasopressors. Certain portions of this document may have been dictated utilizing voice recognition technology. Inherent to this technology, typographical and gr ammatical errors may exist. As much as I am diligent to identify and correct these mistakes, some errors may remain in the document. Vitals Last set of Vitals Signs Vital Signs 11/11/21 11/11/21 07:36 08:00 Temp 36.0 Pulse 121 Resp 15 B/P (MAP) 142/75 Pulse Ox 94 O2 Delivery Mechanical Ventilator O2 Flow Rate 100.00 Labs Labs Laboratory Tests 11/11/21 04:45 Exam Vital Signs Vital Signs Date Time Temp Pulse Resp B/P (MAP) Pulse Ox O2 Delivery O2 Flow Rate FiO2 11/11/21 08:00 121 15 142/75 94 Mechanical Ventilator 100.00 11/11/21 07:36 36.0 Physical Exam General: Intubated and sedated. Well nourished and appears older than stated age. Eye: Conjunctivae are clear. There are no xanthelasma. HENT: Normocephalic. Atraumatic. Carotid pulsations 2/2 without bruits. Neck: Jugular venous pressure does not appear elevated. No thyromegaly appreciated. Respiratory: Symmetrical expansion bilaterally. Coarse breath sounds due to the ventilator. Cardiovascular: Normal rate. Regular rhythm. Distant S1/S2. No murmur. No gallop. Point of maximal impulse is not appear displaced. Good pulses equal in all extremities. 1+ bilateral pretibial edema. Gastrointestinal: Soft. Hypoactive bowel sounds. Skin: Skin turgor is normal. There is no pallor. Musculoskeletal: No obvious deformities. Neurologic: Intubated and sedated. Psychiatric: Not obtainable due to clinical status. Labs Laboratory Tests Test 11/10/21 09:50 11/10/21 11:30 11/10/21 11:57 11/10/21 17:27 Range/Units Blood Gas Puncture Site LT RADIAL Blood Gas Patient Temperature 36.3 Arterial Blood pH 7.37 7.37-7.43 Arterial Blood Partial Pressure CO2 45 35-45 MMHG Arterial Blood Partial Pressure O2 70 L 79-93 MMHG Arterial Blood HCO3 25 23-27 MMOL/L Arterial Blood Total CO2 26.8 21.0-31.0 MMOL/L Arterial Blood Oxygen Saturation 94 94-100 % Arterial Blood Base Excess 0.6 -2.5-2.5 MMOL/L Vernon Test YES-POS Blood Gas Ventilator Setting NO Blood Gas Inspired Oxygen 1L NC Troponin I 8.184 *H <0.028 NG/ML Glucometer 266 H 255 H 70-110 MG/DL Test 11/11/21 01:13 11/11/21 04:45 Range/Units Glucometer 207 H 70-110 MG/DL White Blood Count 13.6 H 4.3-11.0 10^3/uL Red Blood Count 4.61 3.80-5.11 10^6/uL Hemoglobin 11.8 11.5-16.0 g/dL Hematocrit 39 35-52 % Mean Corpuscular Volume 84 80-99 fL Mean Corpuscular Hemoglobin 26 25-34 pg Mean Corpuscular Hemoglobin Concent 30 L 32-36 g/dL Red Cell Distribution Width 14.2 10.0-14.5 % Platelet Count 211 130-400 10^3/uL Mean Platelet Volume 11.6 9.0-12.2 fL Immature Granulocyte % (Auto) 1 % Neutrophils (%) (Auto) 67 42-75 % Lymphocytes (%) (Auto) 23 12-44 % Monocytes (%) (Auto) 9 0-12 % Eosinophils (%) (Auto) 0 0-10 % Basophils (%) (Auto) 0 0-10 % Neutrophils # (Auto) 9.2 H 1.8-7.8 10^3/uL Lymphocytes # (Auto) 3.1 1.0-4.0 10^3/uL Monocytes # (Auto) 1.2 H 0.0-1.0 10^3/uL Eosinophils # (Auto) 0.0 0.0-0.3 10^3/uL Basophils # (Auto) 0.1 0.0-0.1 10^3/uL Immature Granulocyte # (Auto) 0.1 0.0-0.1 10^3/uL Sodium Level 141 135-145 MMOL/L Potassium Level 3.5 L 3.6-5.0 MMOL/L Chloride Level 110 H 98-107 MMOL/L Carbon Dioxide Level 21 21-32 MMOL/L Anion Gap 10 5-14 MMOL/L Blood Urea Nitrogen 26 H 7-18 MG/DL Creatinine 1.40 H 0.60-1.30 MG/DL Estimat Glomerular Filtration Rate 43 BUN/Creatinine Ratio 19 Glucose Level 189 H 70-105 MG/DL Calcium Level 8.2 L 8.5-10.1 MG/DL Corrected Calcium 9.6 8.5-10.1 MG/DL Phosphorus Level 3.1 2.3-4.7 MG/DL Magnesium Level 1.9 1.6-2.4 MG/DL Total Bilirubin 0.3 0.1-1.0 MG/DL Aspartate Amino Transf (AST/SGOT) 41 H 5-34 U/L Alanine Aminotransferase (ALT/SGPT) 28 0-55 U/L Alkaline Phosphatase 102 40-136 U/L Total Creatine Kinase 429 H 29-168 U/L Creatine Kinase MB 9.7 *H <6.6 NG/ML Myoglobin 496.5 H 10.0-92.0 NG/ML Troponin I 6.708 *H <0.028 NG/ML Total Protein 5.9 L 6.4-8.2 GM/DL Albumin 2.3 L 3.2-4.5 GM/DL Diagnosis/Problems Diagnosis/Problems (1) Cardiopulmonary arrest with successful resuscitation Assessment & Plan: Her postintubation/postcode chest x-ray shows complete whiteout of the left lung. I would question whether or not she may have had a mucous plug leading to her respiratory compromise with subsequent cardiopulmonary arrest. She seems to be oxygenating reasonably well on the ventilator. Surgery was previously following the patient and I have asked the nurse to contact the surgeon to see if he would consider a bronchoscopy later today. (2) Elevated troponin Status: Acute Assessment & Plan: I suspect this is due to rhabdomyolysis and does not repr esent an acute coronary syndrome. However, once she recovers from the acute, noncardiac illness, we may want to consider an ischemic evaluation. We will need to wait and see how she does following this cardiopulmonary arrest incident. (3) Coronary artery disease without angina pectoris Assessment & Plan: Despite her fall and elevated troponin, she was not reporting any chest discomfort prior to the cardiopulmonary arrest in the hospital. She has borderline ischemic changes on her electrocardiogram. As above, I suspect the troponin elevation is due to rhabdomyolysis. I ordered low-dose aspirin and statin medication. I was considering adding low-dose beta- ran today but in light of the cardiopulmonary arrest I will hold off on this for the time being. (4) Primary hypertension Assessment & Plan: She has a reported history of hypertension but may not have been taking any medication for this at home. In light of the cardiopulmonary arrest, I will hold off on adding any antihypertensive agents at this time unless she becomes more hypertensive. (5) Mixed hyperlipidemia Assessment & Plan: Her cholesterol level is markedly elevated. I ordered a mod erate dose of rosuvastatin but I will change this over to the maximum dose. (6) Rhabdomyolysis Status: Acute Assessment & Plan: She is receiving intravenous fluids under the direction of the hospitalist. (7) Morbid obesity Status: Chronic Assessment & Plan: She needs to work on weight loss assuming she survives this critical illness. Problem Qualifiers (1) Rhabdomyolysis: Rhabdomyolysis type: traumatic Encounter type: initial encounter Qualified Codes: T79.6XXA - Traumatic ischemia of muscle, initial encounter ROGER TUCKER JR, MD November 11, 2021 08:39
--- NOTE | 2021-11-11 08:42 | Diagnostic Imaging Report ---
INDICATION: Central line placement Portable chest 8:22 AM There is an ET tube projecting over the trachea. There is NG tube that enters the stomach. There is complete opacification of left hemithorax. Right lung is clear. There are postoperative changes from CABG surgery. IMPRESSION: There has been interval placement of ET tube and NG tube. These project over appropriate structures. There appears to be interval development of complete opacification of left hemithorax compared to earlier in the day. Dictated by: Dictated on workstation # [id number]
--- NOTE | 2021-11-11 08:52 | Progress Note ---
Subjective Subjective/Events-last exam This morning patient was doing pretty well, responsive and had been able to start moving her neck more, but then had fairly rapid onset of worsening hypoxia, placed on bipap and increased from 60-100% FiO2 but still saturating in 70s and then had loss of pulse. CPR was done and she had ROSC within 5 minutes with 2 doses of epinephrine and chest compressions. She was intubated and a central line was placed. She hasn't had any real movement in response to stimuli, but her pupils are reactive. Focused Exam Lactate Level 11/10/21 01:26: Lactic Acid Level 3.41*H 11/10/21 04:20: Lactic Acid Level 2.94*H 11/10/21 06:45: Lactic Acid Level 1.77 Time of Focused Exam: 00:30 Objective Exam Last Set of Vital Signs Vital Signs Date Time Temp Pulse Resp B/P (MAP) Pulse Ox O2 Delivery O2 Flow Rate FiO2 11/11/21 08:00 121 15 142/75 94 Mechanical Ventilator 100.00 11/11/21 07:36 36.0 Capillary Refill : Less Than 3 Seconds I&O Intake and Output 11/11/21 00:00 Intake Total 4250 ml Output Total 625 ml Balance 3625 ml Intake Oral 0 ml IV Total 4250 ml Output Urine Total 625 ml Daily Weight Change No General: Other (intubated, does not move/pull away to painful stimuli) Lungs: Other (ronchi) Heart: Regular Rate, No Murmurs Abdomen: Normal Bowel Sounds, Soft Extremities: Other (1+ pitting edema both legs, trace pitting edema in arms) Skin: Other (severely excoriated erythematous rash under breasts and pannus, scabs on legs) Results/Procedures Lab Laboratory Tests 11/10/21 09:50: Blood Gas Puncture Site LT RADIAL, Blood Gas Patient Temperature 36.3, Arterial Blood pH 7.37, Arterial Blood Partial Pressure CO2 45, Arterial Blood Partial Pressure O2 70L, Arterial Blood HCO3 25, Arterial Blood Total CO2 26.8, Arterial Blood Oxygen Saturation 94, Arterial Blood Base Excess 0.6, Vernon Test YES-POS, Blood Gas Ventilator Setting NO, Blood Gas Inspired Oxygen 1L NC 11/10/21 11:30: Troponin I 8.184*H 11/10/21 11:57: Glucometer 266H 11/10/21 17:27: Glucometer 255H 11/11/21 01:13: Glucometer 207H 11/11/21 04:45: White Blood Count 13.6H, Red Blood Count 4.61, Hemoglobin 11.8, Hematocrit 39, Mean Corpuscular Volume 84, Mean Corpuscular Hemoglobin 26, Mean Corpuscular Hemoglobin Concent 30L, Red Cell Distribution Width 14.2, Platelet Count 211, Mean Platelet Volume 11.6, Immature Granulocyte % (Auto) 1, Neutrophils (%) (Auto) 67, Lymphocytes (%) (Auto) 23, Monocytes (%) (Auto) 9, Eosinophils (%) (Auto) 0, Basophils (%) (Auto) 0, Neutrophils # (Auto) 9.2H, Lymphocytes # (Auto) 3.1, Monocytes # (Auto) 1.2H, Eosinophils # (Auto) 0.0, Basophils # (Auto) 0.1, Immature Granulocyte # (Auto) 0.1, Sodium Level 141, Potassium Level 3.5L, Chloride Level 110H, Carbon Dioxide Level 21, Anion Gap 10, Blood Urea Nitrogen 26H, Creatinine 1.40H, Estimat Glomerular Filtration Rate 43, BUN/Creatinine Ratio 19, Glucose Level 189H, Calcium Level 8.2L, Corrected Calcium 9.6, Phosphorus Level 3.1, Magnesium Level 1.9, Total Bilirubin 0.3, Aspartate Amino Transf (AST/SGOT) 41H, Alanine Aminotransferase (ALT/SGPT) 28, Alkaline Phosphatase 102, Total Creatine Kinase 429H, Creatine Kinase MB 9.7*H, Myoglobin 496.5H, Troponin I 6.708*H, Total Protein 5.9L, Albumin 2.3L 11/11/21 08:25: Microbiology 11/09/21 Urine Culture - Preliminary, Resulted Culture In Progress Radiology CT head/neck 11/09/21: IMPRESSION: CT head was unremarkable. CT maxillofacial shows no evidence of facial fracture. There is retention cyst or polyp in the right maxillary sinus. There is right periorbital soft tissue swelling. CT cervical spine shows mild degenerative findings with no acute fracture or subluxation. Spine CT 11/09/21: IMPRESSION: 1. No acute fracture or dislocation in the thoracic and lumbar spine. 2. 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 CXR 11/10/21: IMPRESSION: Cardiomegaly and poststernotomy change. Poor inspiration with some mild right basilar atelectasis. No pneumothorax or pleural fluid. Pelvic xray 11/10/21: IMPRESSION: Mild chronic changes as above with no acute fracture. Right shoulder xray 11/10/21 IMPRESSION: No acute abnormality of the right shoulder. Assessment/Plan Assessment/Plan (1) Cardiopulmonary arrest with successful resuscitation Status: Acute Assessment & Plan: s/p about 5 minutes of CPR and 2 doses of epinephrine, minimally to unresponsive after, now intubated. BP okay initially, monitor closely. See goals of care discussion. (2) Respiratory failure Status: Acute Assessment & Plan: Suspect possibly pulmonary edema vs mucous plugging given she has been receiving large amount as was needed for her rhabdo, and her post- intubation CXR shows white-out of left side, contacted Dr. Chanel del rosario for possible bronchoscopy. Lasix 20 mg IV given before code event when her hypoxia was worsening. IVF running at 30 mls/hr with potassium. Qualifiers: Qualified Codes: J96.01 - Acute respiratory failure with hypoxia (3) Sepsis Status: Acute Assessment & Plan: Secondary to urinary tract infection, IVF and ceftriaxone. Culture pending. 11/11 holding IVF due to hypoxic respiratory failure. Qualifiers: (4) Lactic acidosis Status: Resolved Assessment & Plan: 11/10- Suspect secondary to tissue hypoxia with rhabdo, resolved overnight with IVF. (5) Candidal intertrigo Status: Acute Assessment & Plan: 11/10- Severe, diffuse, will treat with diflucan x 7 days. (6) Morbid obesity Status: Chronic (7) Hypothermia Status: Acute Assessment & Plan: Improving, continue treating underlying conditions Qualifiers: Qualified Codes: T68.XXXA - Hypothermia, initial encounter (8) Renal insufficiency Status: Acute Assessment & Plan: Trending improved with IVF resuscitation, suspect secondary to dehydration and rhabdomyolysis 11/11 creatinine trending down, but now holding IVF due to hypoxic respiratory failure (9) UTI (urinary tract infection) Status: Acute Assessment & Plan: Culture pending, ceftriaxone started. (10) Uncontrolled diabetes mellitus Status: Chronic Assessment & Plan: Reviewed clinic chart, 10/10/21 A1c 11.3 Sliding scale insulin, diabetic diet when tolerating oral. Was not taking home medications for some time. Qualifiers: Qualified Codes: E11.65 - Type 2 diabetes mellitus with hyperglycemia (11) Elevated troponin Status: Acute Assessment & Plan: Cardiology consulted, appreciate recommendations. Suspect related to rhabdo rather than new cardiac event. (12) Contusion of right shoulder Status: Acute Assessment & Plan: Xray without fracture Qualifiers: Qualified Codes: S40.011A - Contusion of right shoulder, initial encounter (13) Fall from standing Status: Acute Assessment & Plan: PT when able Qualifiers: Qualified Codes: W19.XXXA - Unspecified fall, initial encounter (14) Rhabdomyolysis Status: Acute Assessment & Plan: IVF, monitor CK and creatinine Qualifiers: Qualified Codes: T79.6XXA - Traumatic ischemia of muscle, initial encounter (15) Hypertension Status: Chronic Qualifiers: Qualified Codes: I10 - Essential (primary) hypertension (16) Hyperlipidemia Status: Chronic (17) Coronary artery disease without angina pectoris Status: Chronic Assessment & Plan: History of bypass, has not been taking medications at home. Restarted aspirin, cannot tolerate beta ran and ACEI due to current BP. Qualifiers: Qualified Codes: I25.810 - Atherosclerosis of coronary artery bypass graft(s) without angina pectoris (18) DVT prophylaxis Status: Acute Assessment & Plan: Enoxaparin (19) Goals of care, counseling/discussion Status: Acute Assessment & Plan: 11/11 Spoke with brother Alan this morning after code event, pt was unable to have in depth conversation yesterday and he reports they haven't really talked about her wishes. He does feel confident that if she has hypoxic brain insult, she would not want to be on the ventilator for a prolonged period. He also notes that she has been failing at home for some time, she does not drive, she is not taking her medications and has been having more and more difficulty getting around but has resisted moving in with someone else, although after the last time she fell, her family told her if she had another fall they felt she could not go back to her home alone. Discussed that it is difficult to know yet whether she has sustained further fdc consequences after her arrest, and will monitor closely over next 24-48 hours with the recognition that family does feel she would prefer comfort over aggressive care if not thought to be likely to be beneficial. DEVYN JUSTIN MD November 11, 2021 08:52
[2021-11-11] MEDS: ENOXAPARIN 40 MG/0.4 ML (LOVENOX) SYR SC SCH ×2 (09:21→21:17)
[2021-11-11] MEDS: MICONAZOLE 2% POWDER (DESENEX AF) 90 GM TOP SCH ×2 (09:21→22:45)
[2021-11-11] MEDS: FLUCONAZOLE 100 MG/50 ML 50 ML IV SCH (09:21)
[2021-11-11] MEDS: PANTOPRAZOLE 40 MG (PROTONIX) VIAL IV SCH (09:21)
[2021-11-11] MEDS: PROPOFOL DRIP (ICU) 100 ML IV SCH ×4 (09:22→21:27)
[2021-11-11 09:24] LABS: ABG BASE EXCESS -3.5 MMOL/L (-2.5-2.5); ABG OXYGEN SATURATION 95 % (94-100); ABG PCO2 45 MMHG (35-45); ABG PO2 75 MMHG (79-93); ABG TCO2 23.4 MMOL/L (21.0-31.0)
[2021-11-11 09:26] LABS: ABG PH 7.31 (7.37-7.43); ALLENS TEST YES-POS; INSPIRED O2 100%; PATIENT TEMP 36.3; VENTILATOR YES
--- NOTE | 2021-11-11 09:30 | Physical Therapy Progress Note ---
Therapy Progress Note Patient s/p code blue and is currently intubated. PT will monitor patient status and initiate treatment when patient is medically stable and able to actively participate with skilled PT. ALFONSO CHEN PT November 11, 2021 09:30
[2021-11-11] MEDS: ASPIRIN E.C. 81 MG (ECOTRIN) TAB PO SCH (09:33)
--- NOTE | 2021-11-11 09:39 | Procedure/Intervention Note ---
Procedures/Interventions Lumen: triple Central Line Procedure: betadine prep Position: internal jugular (R) Complications: none Post Position: sutured, good blood return, position confirmed w/ CXR This was performed under sterile conditions, ultrasound guidance utilized in real-time. Patient had no complications from the procedure. Date of ETT Placement: November 11, 2021 Time of ETT Placement: 08:10 Intubation Method: orotracheal Tube Size: 7.50 Positive End Tide CO2: Yes Breath Sounds after Intubation: bilateral-equal Intubation Complications: no complications Post Intubation Xray: Yes Patient was post resuscitation from a CODE BLUE and nonresponsive. Intubated with video laryngoscopy without difficulty. CRISTOFER OROZCO MD November 11, 2021 09:39
--- NOTE | 2021-11-11 09:43 | Tele-ICU Progress Note ---
Progress Note 1. post code patient was follow commands - started o sedtion 2. cxr with suspected mucous plug on left - started br - diolators q 4 and chest PT , Sx consulted for possible bronch Focused Exam Lactate Level 11/10/21 01:26: Lactic Acid Level 3.41*H 11/10/21 04:20: Lactic Acid Level 2.94*H 11/10/21 06:45: Lactic Acid Level 1.77 Height, Weight, BMI Height: 5'2" Weight: 226lbs. oz. 102.353695wn; 40.69 BMI Method: Time of Focused Exam: 00:30 SARAH ROTH MD November 11, 2021 09:43
[2021-11-11] MEDS ORDERED: RT-ALBUTEROL/IPRATROPIUM 3 ML (DUONEB) VIAL INH SCH (10:00)
--- NOTE | 2021-11-11 10:22 | Progress Note-Pre Operative ---
Pre-Operative Progress Note H&P Reviewed The H&P was reviewed, patient examined and no changes noted. Date Seen by Provider: November 11, 2021 Time Seen by Provider: 10:00 Date H&P Reviewed: November 11, 2021 Time H&P Reviewed: 10:00 Pre-Operative Diagnosis: hypoxia, cardiac arrest LUCA GUTIERREZ MD November 11, 2021 10:22
--- NOTE | 2021-11-11 10:40 | Occ Therapy Progress Note ---
Therapy Progress Note Patient s/p code blue and is currently intubated. OT will monitor patient status and initiate treatment when patient is medically stable and able to actively participate with skilled OT. Arielle Cage OT November 11, 2021 10:40
[2021-11-11] MEDS: fentaNYL INJ 100 MCG/2 ML AMP IVP PRN (11:02)
[2021-11-11 11:14] VITALS: BP 192/89
--- NOTE | 2021-11-11 11:46 | Diagnostic Imaging Report ---
Indication: Respiratory distress. Findings: The left chest is no longer zainab out. There are significant improvements in left lung expansion. There has been no adverse development. An ET tube projects at the mid trachea. Sternal wires midline. Impression: Significant improvements in left lung expansion post bronchoscopy with no pneumothorax or adverse change. Dictated by: Dictated on workstation # [id number]
[2021-11-11] MEDS: fentaNYL DRIP PRE-MIX 250 ML IV SCH (11:49)
[2021-11-11] MEDS ORDERED: CATHETER FLUSH 10 ML SYR IVP ONE (12:52)
[2021-11-11] MEDS ORDERED: EPINEPHrine 0.1 MG/ML 10 ML (HOSPIRA) SYR IJ ONE (12:52)
[2021-11-11] MEDS: aCETylcysteine 20% (MUCOMYST) 4 ML SOLN VIAL INH SCH ×2 (14:18→22:11)
[2021-11-11 14:19] VITALS: BP 134/85
--- NOTE | 2021-11-11 18:59 | OPERATIVE REPORT ---
DATE OF SERVICE: 11/11/2021 ADMITTING PHYSICIAN: Dr. Hauser. PREOPERATIVE DIAGNOSES: Hypoxia and respiratory failure. POSTOPERATIVE DIAGNOSES: Left mainstem primary and secondary bronchial radical mucus plugging. PROCEDURES PERFORMED: Bronchoscopy and bronchioalveolar lavage. SURGEON: Luca Gutierrez MD. ANESTHESIA: Monitored anesthesia care. ESTIMATED BLOOD LOSS: Minimal. FINDINGS: Left mainstem primary and secondary bronchial radical mucus plugging. DISPOSITION: The patient tolerated the procedure well. INDICATIONS FOR PROCEDURE: The patient is a 61-year-old female, who presented to the Emergency Department, obtunded and had a fall and was on the ground for approximately two days. She was confused; however, after IV hydration was able to verbalize and move all four extremities. She was admitted to the ICU and in the thiokol operator hours, did develop worsening hypoxia, which then potentially resulted in cardiac arrest requiring ACLS protocol with resuscitation within several minutes. Followup chest x-ray did show a complete whiteout on the left side. DESCRIPTION OF PROCEDURE: The patient maintained in the ICU under monitor and with the assistance of respiratory technology, we then proceeded with bronchoscopy, placing the bronchoscope through the endotracheal tube visualizing the himanshu. There was significant amount of mucus within the himanshu itself; however, there was a much larger load in the left main stem bronchus as well as the primary and secondary radicles, which was irrigated with saline and suctioned out as well as possible. There was also a small amount of mucus on the right side; however, not near as severe. This was suctioned out as possible as well. After the systematic irrigation and suctioning, there were increased breath sounds the left lower lung base. Good hemostasis was visualized and the bronchoscope was removed. The patient tolerated the procedure well. We will get a post-procedure chest x-ray. Job ID: [id number] DocumentID: [id number] Dictated Date: 11/11/2021 11:19:52 Chemical Cell Changer Date: 11/11/2021 18:58:53 Dictated By: LUCA GUTIERREZ MD
[2021-11-11 19:12] VITALS: BP 95/66
[2021-11-11] MEDS ORDERED: ROSUVASTATIN 20 MG (CRESTOR) TABLET PO SCH (21:00)
[2021-11-11] MEDS: cefTRIAXone 1 GM PRE-MIX 50 ML IV SCH (21:17)
[2021-11-11] MEDS ORDERED: FUROSEMIDE 40 MG/4 ML INJ (LASIX) ONE (21:28)
[2021-11-11 22:12] VITALS: BP 102/59
[2021-11-12] MEDS: fentaNYL DRIP PRE-MIX 250 ML IV SCH (00:44)
[2021-11-12] MEDS: PROPOFOL DRIP (ICU) 100 ML IV SCH (01:47)
[2021-11-12 02:28] VITALS: BP 89/53
[2021-11-12] MEDS: RT-ALBUTEROL SULF 2.5 MG/3 ML PRE-MIX VIAL INH SCH ×6 (02:28→22:37)
[2021-11-12] MEDS ORDERED: NOREPINEPHRINE 16 MG in NS (IVPB) 234 ML IV SCH (02:45)
[2021-11-12] MEDS: NS IV 1000 ML 1,000 ML IV SCH ×3 (02:46→22:26)
[2021-11-12] MEDS ORDERED: NOREPINEPHRINE 8 MG/250 ML 250 ML IV ONE (04:31)
[2021-11-12] MEDS: NOREPINEPHRINE 8 MG/250 ML 250 ML IV SCH ×2 (04:49→16:57)
[2021-11-12 04:52] LABS: BASOPHILS # (AUTO) 0.1 10^3/uL (0.0-0.1); BASOPHILS % (AUTO) 0 % (0-10); EOSINOPHILS # (AUTO) 0.1 10^3/uL (0.0-0.3); EOSINOPHILS % (AUTO) 1 % (0-10); HEMATOCRIT 35 % (35-52); HEMOGLOBIN 10.7 g/dL (11.5-16.0); LYMPHOCYTES % (AUTO) 10 % (12-44); MEAN CORPUSCULAR HEMOGLOBIN 26 pg (25-34); MEAN CORPUSCULAR HGB CONC 30 g/dL (32-36); MEAN CORPUSCULAR VOLUME 86 fL (80-99); MEAN PLATELET VOLUME 11.7 fL (9.0-12.2); MONOCYTES # (AUTO) 1.5 10^3/uL (0.0-1.0); MONOCYTES % (AUTO) 8 % (0-12); NEUTROPHILS # (AUTO) 15.8 10^3/uL (1.8-7.8); NEUTROPHILS % (AUTO) 81 % (42-75); PLATELET COUNT 211 10^3/uL (130-400); WHITE BLOOD COUNT 19.6 10^3/uL (4.3-11.0)
[2021-11-12 05:00] LABS: ALBUMIN 2.2 GM/DL (3.2-4.5); POTASSIUM 3.8 MMOL/L (3.6-5.0)
[2021-11-12 05:01] LABS: CALCIUM 8.1 MG/DL (8.5-10.1)
[2021-11-12 05:03] LABS: TOTAL PROTEIN 5.9 GM/DL (6.4-8.2)
[2021-11-12 05:04] LABS: BILIRUBIN,TOTAL 0.4 MG/DL (0.1-1.0)
[2021-11-12 05:06] LABS: CREATININE SERUM 2.15 MG/DL (0.60-1.30); PHOSPHORUS 3.3 MG/DL (2.3-4.7)
[2021-11-12 05:09] LABS: MAGNESIUM 1.8 MG/DL (1.6-2.4)
[2021-11-12 05:17] LABS: CREATINE KINASE MB 4.9 NG/ML (<6.6)
[2021-11-12 05:18] LABS: ABG BASE EXCESS -4.8 MMOL/L (-2.5-2.5); ABG OXYGEN SATURATION 95 % (94-100); ABG PCO2 48 MMHG (35-45); ABG PO2 78 MMHG (79-93); ABG TCO2 22.5 MMOL/L (21.0-31.0)
[2021-11-12 05:21] LABS: ABG PH 7.26 (7.37-7.43); ALLENS TEST YES-POS
[2021-11-12 05:22] LABS: INSPIRED O2 30%; PATIENT TEMP 37.3; VENTILATOR YES
[2021-11-12] MEDS: inSUlin ASPART (NovoLOG) 1 UNIT/0.01 ML (CHARGE PER UNIT) SC SCH ×4 (06:04→23:50)
--- NOTE | 2021-11-12 06:42 | Progress Note - Hospitalist ---
Subjective HPI/CC On Admission Date Seen by Provider: November 12, 2021 Time Seen by Provider: 10:00 Subjective/Events-last exam Patient still intubated Reviewed meds and labs Nurse has no concerns Uncertain of neurologic function Focused Exam Lactate Level 11/10/21 06:45: Lactic Acid Level 1.77 Time of Focused Exam: 00:30 Objective Exam Vital Signs Vital Signs Date Time Temp Pulse Resp B/P (MAP) Pulse Ox O2 Delivery O2 Flow Rate FiO2 11/13/21 06:00 97 24 130/63 97 Mechanical Ventilator 30.00 11/13/21 04:00 30 11/13/21 04:00 37.6 Capillary Refill : Less Than 3 Seconds General Appearance: No Apparent Distress, WD/WN, Chronically ill, Obese, Other (Intubated and unresponsive) Respiratory: Lungs Clear, Normal Breath Sounds Cardiovascular: Regular Rate, Rhythm Results/Procedures Lab Laboratory Tests 11/13/21 04:26 Patient resulted labs reviewed. Assessment/Plan Assessment and Plan Assess & Plan/Chief Complaint Assessment/Plan (1) Cardiopulmonary arrest with successful resuscitation Status: Acute Assessment & Plan: s/p about 5 minutes of CPR and 2 doses of epinephrine, minimally to unresponsive after, now intubated. BP okay initially, monitor closely. See goals of care discussion. (2) Respiratory failure Status: Acute Assessment & Plan: Suspect possibly pulmonary edema vs mucous plugging given she has been receiving large amount as was needed for her rhabdo, and her post-intubation CXR shows white-out of left side, contacted Dr. Buchanan to carin for possible bronchoscopy. Lasix 20 mg IV given before code event when her hypoxia was worsening. IVF running at 30 mls/hr with potassium. Qualifiers: Qualified Codes: J96.01 - Acute respiratory failure with hypoxia (3) Sepsis Status: Acute Assessment & Plan: Secondary to urinary tract infection, IVF and ceftriaxone. Culture pending. 11/11 holding IVF due to hypoxic respiratory failure. Qualifiers: (4) Lactic acidosis Status: Resolved Assessment & Plan: 11/10- Suspect secondary to tissue hypoxia with rhabdo, resolved overnight with IVF. (5) Candidal intertrigo Status: Acute Assessment & Plan: 11/10- Severe, diffuse, will treat with diflucan x 7 days. (6) Morbid obesity Status: Chronic (7) Hypothermia Status: Acute Assessment & Plan: Improving, continue treating underlying conditions Qualifiers: Qualified Codes: T68.XXXA - Hypothermia, initial encounter (8) Renal insufficiency Status: Acute Assessment & Plan: Trending improved with IVF resuscitation, suspect secondary to dehydration and rhabdomyolysis 11/11 creatinine trending down, but now holding IVF due to hypoxic respiratory failure (9) UTI (urinary tract infection) Status: Acute Assessment & Plan: Culture pending, ceftriaxone started. (10) Uncontrolled diabetes mellitus Status: Chronic Assessment & Plan: Reviewed clinic chart, 10/10/21 A1c 11.3 Sliding scale insulin, diabetic diet when tolerating oral. Was not taking home medications for some time. Qualifiers: Qualified Codes: E11.65 - Type 2 diabetes mellitus with hyperglycemia (11) Elevated troponin Status: Acute Assessment & Plan: Cardiology consulted, appreciate recommendations. Suspect related to rhabdo rather than new cardiac event. (12) Contusion of right shoulder Status: Acute Assessment & Plan: Xray without fracture Qualifiers: Qualified Codes: S40.011A - Contusion of right shoulder, initial encounter (13) Fall from standing Status: Acute Assessment & Plan: PT when able Qualifiers: Qualified Codes: W19.XXXA - Unspecified fall, initial encounter (14) Rhabdomyolysis Status: Acute Assessment & Plan: IVF, monitor CK and creatinine Qualifiers: Qualified Codes: T79.6XXA - Traumatic ischemia of muscle, initial encounter (15) Hypertension Status: Chronic Qualifiers: Qualified Codes: I10 - Essential (primary) hypertension (16) Hyperlipidemia Status: Chronic (17) Coronary artery disease without angina pectoris Status: Chronic Assessment & Plan: History of bypass, has not been taking medications at home. Restarted aspirin, cannot tolerate beta ran and ACEI due to current BP. Qualifiers: Qualified Codes: I25.810 - Atherosclerosis of coronary artery bypass graft (s) without angina pectoris (18) DVT prophylaxis Status: Acute Assessment & Plan: Enoxaparin (19) Goals of care, counseling/discussion Status: Acute Assessment & Plan: 11/11 Spoke with brother Alan this morning after code event, pt was unable to have in depth conversation yesterday and he reports they haven't really talked about her wishes. He does feel confident that if she has hypoxic brain insult, she would not want to be on the ventilator for a prolonged period. He also notes that she has been failing at home for some time, she does not drive, she is not taking her medications and has been having more and more difficulty getting around but has resisted moving in with someone else, although after the last time she fell, her family told her if she had another fall they felt she could not go back to her home alone. Discussed that it is difficult to know yet whether she has sustained further assisted consequences after her arrest, and will monitor closely over next 24-48 hours with the recognition that family does feel she would prefer comfort over aggressive care if not thought to be likely to be beneficial. Plan: Supportive care Assess neurologic function VANDANA KNOWLES DO November 12, 2021 06:42
[2021-11-12 07:31] VITALS: BP 116/56
[2021-11-12] MEDS: aCETylcysteine 20% (MUCOMYST) 4 ML SOLN VIAL INH SCH ×3 (07:31→22:38)
[2021-11-12] MEDS: ASPIRIN E.C. 81 MG (ECOTRIN) TAB PO SCH (07:47)
[2021-11-12] MEDS: ENOXAPARIN 40 MG/0.4 ML (LOVENOX) SYR SC SCH ×2 (07:47→20:02)
[2021-11-12] MEDS: MICONAZOLE 2% POWDER (DESENEX AF) 90 GM TOP SCH ×2 (07:48→20:02)
[2021-11-12] MEDS: FLUCONAZOLE 100 MG/50 ML 50 ML IV SCH (07:48)
[2021-11-12] MEDS: PANTOPRAZOLE 40 MG (PROTONIX) VIAL IV SCH (07:48)
--- NOTE | 2021-11-12 08:28 | Diagnostic Imaging Report ---
INDICATION: Intubated. EXAMINATION: Chest 11/12/2021 COMPARISON: 11/11/2021 FINDINGS: ET tube tip is unremarkable. There is a right central line tip in the SVC. Enteric tube courses beneath the diaphragm with postoperative sternotomy changes noted. The heart is slightly prominent. Pulmonary vasculature is minimally congested. There is infiltrate left lung base. No significant effusions. There is no pneumothorax. IMPRESSION: 1. Tubes and lines as above. 2. Left base atelectasis or infiltrate. 3. Mild pulmonary vascular congestion. Dictated by: Dictated on workstation # [id number]
--- NOTE | 2021-11-12 09:37 | Tele-ICU Progress Note ---
Progress Note video rounds completed 61 y/o female s/p fall at home Had hypoxemic resp failure and was intubated Vent: AC 10/400/30/10 Troponins elevated, no STEMI PE": comfortable and sedated on vent still requiring small dose of levophed Glu: 247 Creat: 2.15 BUN 30 WBC up to 19.6 On propofol and fentanyl for sedation Covered with lovenox and pantoprazole Cefipime and fluconazole for antibiotics AN.26/48/78/21 shows mixed metabolic and respi acidosis. PLAN: continue vent support and antibiotics Focused Exam Lactate Level 11/10/21 01:26: Lactic Acid Level 3.41*H 11/10/21 04:20: Lactic Acid Level 2.94*H 11/10/21 06:45: Lactic Acid Level 1.77 Height, Weight, BMI Height: 5'2" Weight: 226lbs. oz. 102.689220xe; 40.69 BMI Method: Time of Focused Exam: 00:30 Laboratory Tests 11/12/21 04:45 Results Results/Procedures Labs Laboratory Tests 11/11/21 04:45 11/12/21 04:45 Patient resulted labs reviewed. Results Labs Labs Laboratory Tests 11/11/21 11:43: Glucometer 241H 11/11/21 18:05: Glucometer 237H 11/11/21 23:37: Glucometer 235H 11/12/21 04:45: White Blood Count 19.6H, Red Blood Count 4.09, Hemoglobin 10.7L, Hematocrit 35, Mean Corpuscular Volume 86, Mean Corpuscular Hemoglobin 26, Mean Corpuscular Hemoglobin Concent 30L, Red Cell Distribution Width 14.6H, Platelet Count 211, Mean Platelet Volume 11.7, Immature Granulocyte % (Auto) 1, Neutrophils (%) (Auto) 81H, Lymphocytes (%) (Auto) 10L, Monocytes (%) (Auto) 8, Eosinophils (%) (Auto) 1, Basophils (%) (Auto) 0, Neutrophils # (Auto) 15.8H, Lymphocytes # (Auto) 2.0, Monocytes # (Auto) 1.5H, Eosinophils # (Auto) 0.1, Basophils # (Auto) 0.1, Immature Granulocyte # (Auto) 0.1, Sodium Level 142, Potassium Level 3.8, Chloride Level 110H, Carbon Dioxide Level 19L, Anion Gap 13, Blood Urea Nitrogen 30H, Creatinine 2.15H, Estimat Glomerular Filtration Rate 26, BUN/Creatinine Ratio 14, Glucose Level 247H, Calcium Level 8.1L, Corrected Calcium 9.5, Phosphorus Level 3.3, Magnesium Level 1.8, Total Bilirubin 0.4, Aspartate Amino Transf (AST/SGOT) 145H, Alanine Aminotransferase (ALT/SGPT) 75H, Alkaline Phosphatase 118, Total Creatine Kinase 716H, Creatine Kinase MB 4.9, M yoglobin 3840.8H, Troponin I 7.468*H, Total Protein 5.9L, Albumin 2.2L 11/12/21 05:09: Blood Gas Puncture Site RT RADIAL, Blood Gas Patient Temperature 37.3, Arterial Blood pH 7.26*L, Arterial Blood Partial Pressure CO2 48H, Arterial Blood Partial Pressure O2 78L, Arterial Blood HCO3 21L, Arterial Blood Total CO2 22.5, Arterial Blood Oxygen Saturation 95, Arterial Blood Base Excess -4.8L, Vernon Test YES-POS, Blood Gas Ventilator Setting YES, Blood Gas Inspired Oxygen 30% Microbiology 11/11/21 Gram Stain - Final, Resulted 11/11/21 Bronchial Culture - Preliminary, Resulted Staphylococcus aureus 11/11/21 Fungal Culture 1, Resulted Pending 11/10/21 Blood Culture - Preliminary, Resulted No growth 11/09/21 Urine Culture - Final, Complete 3 or more isolates ROGER TORRES MD November 12, 2021 09:37
--- NOTE | 2021-11-12 09:43 | Progress Note ---
Subjective Date Seen by a Provider: November 12, 2021 Time Seen by a Provider: 09:30 Subjective/Events-last exam Patient seen with Dr. Buchanan. Patient on vent and does not respond to stimuli. RN reports has been off Propofol for some time now and just on fentanyl drip with no stimuli response. RN reports suctioning patient and getting secretions and has been able to stop Levophed and decrease peep. Focused Exam Lactate Level 11/10/21 01:26: Lactic Acid Level 3.41*H 11/10/21 04:20: Lactic Acid Level 2.94*H 11/10/21 06:45: Lactic Acid Level 1.77 Time of Focused Exam: 00:30 Objective Exam Vital Signs Date Time Temp Pulse Resp B/P (MAP) Pulse Ox O2 Delivery O2 Flow Rate FiO2 11/12/21 08:00 115 23 91/51 92 Mechanical Ventilator 30.00 11/12/21 07:40 36.9 11/12/21 07:31 111 20 93 30 11/12/21 07:00 105 24 138/61 95 Mechanical Ventilator 30.00 11/12/21 07:00 104 11/12/21 06:00 105 22 132/58 94 Mechanical Ventilator 30.00 11/12/21 05:00 136 11/12/21 05:00 111 22 151/69 96 Mechanical Ventilator 30.00 11/12/21 04:49 104 93/42 11/12/21 04:00 36.8 Mechanical Ventilator 30.00 11/12/21 04:00 105 22 90/44 96 Mechanical Ventilator 30.00 11/12/21 04:00 94 Mechanical Ventilator 30 11/12/21 03:00 105 20 82/47 98 Mechanical Ventilator 35.00 11/12/21 02:28 96 20 97 40 11/12/21 02:00 96 20 89/53 98 Mechanical Ventilator 35.00 11/12/21 01:47 96 105/70 11/12/21 01:00 96 11/12/21 01:00 96 21 93/67 98 Mechanical Ventilator 35.00 11/12/21 00:00 37.4 11/12/21 00:00 96 23 105/70 98 Mechanical Ventilator 35.00 11/12/21 00:00 98 Mechanical Ventilator 35 11/11/21 23:44 Mechanical Ventilator 35.00 11/11/21 23:00 103 21 103/71 98 Mechanical Ventilator 45.00 11/11/21 22:40 Mechanical Ventilator 45.00 11/11/21 22:12 94 14 97 40 11/11/21 22:00 93 23 102/59 99 Mechanical Ventilator 40.00 11/11/21 21:45 Mechanical Ventilator 40.00 11/11/21 21:27 98 99/61 11/11/21 21:00 93 24 96/63 100 Mechanical Ventilator 50.00 11/11/21 20:00 97 24 94/65 100 Mechanical Ventilator 50.00 11/11/21 19:56 100 Mechanical Ventilator 50 11/11/21 19:48 98 23 99/61 100 Mechanical Ventilator 50.00 11/11/21 19:24 37.0 11/11/21 19:12 96 24 100 50 11/11/21 19:00 97 24 95/66 100 Mechanical Ventilator 50.00 11/11/21 19:00 97 11/11/21 18:00 92 23 110/63 99 Mechanical Ventilator 80.00 11/11/21 17:06 94 145/85 11/11/21 17:00 94 19 145/85 99 Mechanical Ventilator 80.00 11/11/21 16:15 Mechanical Ventilator 50 11/11/21 16:00 99 15 111/68 98 Mechanical Ventilator 80.00 11/11/21 15:56 36.3 Mechanical Ventilator 50.00 11/11/21 15:30 Mechanical Ventilator 50.00 11/11/21 15:00 109 15 119/70 97 Mechanical Ventilator 80.00 11/11/21 14:19 85 24 97 70 11/11/21 14:00 81 35 132/79 100 Mechanical Ventilator 80.00 11/11/21 13:03 80 132/84 11/11/21 13:00 80 11/11/21 13:00 91 21 122/99 100 Mechanical Ventilator 80.00 11/11/21 12:05 Mechanical Ventilator 80 11/11/21 12:00 36.1 11/11/21 12:00 87 28 145/79 100 Mechanical Ventilator 80.00 11/11/21 11:38 Mechanical Ventilator 80.00 11/11/21 11:14 75 24 100 100 11/11/21 11:00 89 11 141/82 99 Mechanical Ventilator 100.00 11/11/21 10:40 26 11/11/21 10:00 95 23 141/84 98 Mechanical Ventilator 100.00 I & O 11/12/21 07:00 Intake Total 3283 ml Output Total 675 ml Balance 2608 ml Capillary Refill : Less Than 3 Seconds General Appearance: No Apparent Distress, WD/WN, Other (On vent) Respiratory: Other (Diminished bilat and on VENT) Cardiovascular: Regular Rate, Rhythm, No JVD Gastrointestinal: normal bowel sounds, soft Extremity: Normal Capillary Refill Neurologic/Psychiatric: Other (ON vent) Skin: Normal Color, Warm/Dry Results Lab Laboratory Tests 11/11/21 11:43: Glucometer 241H 11/11/21 18:05: Glucometer 237H 11/11/21 23:37: Glucometer 235H 11/12/21 04:45: White Blood Count 19.6H, Red Blood Count 4.09, Hemoglobin 10.7L, Hematocrit 35, Mean Corpuscular Volume 86, Mean Corpuscular Hemoglobin 26, Mean Corpuscular Hemoglobin Concent 30L, Red Cell Distribution Width 14.6H, Platelet Count 211, Mean Platelet Volume 11.7, Immature Granulocyte % (Auto) 1, Neutrophils (%) (Auto) 81H, Lymphocytes (%) (Auto) 10L, Monocytes (%) (Auto) 8, Eosinophils (%) (Auto) 1, Basophils (%) (Auto) 0, Neutrophils # (Auto) 15.8H, Lymphocytes # (Auto) 2.0, Monocytes # (Auto) 1.5H, Eosinophils # (Auto) 0.1, Basophils # (Auto) 0.1, Immature Granulocyte # (Auto) 0.1, Sodium Level 142, Potassium Level 3.8, Chloride Level 110H, Carbon Dioxide Level 19L, Anion Gap 13, Blood Urea Ni trogen 30H, Creatinine 2.15H, Estimat Glomerular Filtration Rate 26, BUN/Creatinine Ratio 14, Glucose Level 247H, Calcium Level 8.1L, Corrected Calcium 9.5, Phosphorus Level 3.3, Magnesium Level 1.8, Total Bilirubin 0.4, Aspartate Amino Transf (AST/SGOT) 145H, Alanine Aminotransferase (ALT/SGPT) 75H, Alkaline Phosphatase 118, Total Creatine Kinase 716H, Creatine Kinase MB 4.9, Myoglobin 3840.8H, Troponin I 7.468*H, Total Protein 5.9L, Albumin 2.2L 11/12/21 05:09: Blood Gas Puncture Site RT RADIAL, Blood Gas Patient Temperature 37.3, Arterial Blood pH 7.26*L, Arterial Blood Partial Pressure CO2 48H, Arterial Blood Partial Pressure O2 78L, Arterial Blood HCO3 21L, Arterial Blood Total CO2 22.5, Arterial Blood Oxygen Saturation 95, Arterial Blood Base Excess -4.8L, Vernon Test YES-POS, Blood Gas Ventilator Setting YES, Blood Gas Inspired Oxygen 30% Microbiology 11/11/21 Gram Stain - Final, Resulted 11/11/21 Bronchial Culture - Preliminary, Resulted Staphylococcus aureus 11/11/21 Fungal Culture 1, Resulted Pending 11/10/21 Blood Culture - Preliminary, Resulted No growth 11/09/21 Urine Culture - Final, Complete 3 or more isolates Assessment/Plan Assessment/Plan Assess & Plan/Chief Complaint A 61 year old female who is S/P cardiac arrest, respiratory failure, same level fall, and S/P bronchoscopy VSS on Vent WBC 19.6 Chest x-ray does appear improved since bronchoscopy - continue with serial Chest x-rays Continue abx, breathing treatments, PUD and DVT prophylaxis, AM labs MOISES CLAIRE MAGNETO ELECTRICIAN November 12, 2021 09:43
--- NOTE | 2021-11-12 10:04 | Cardiology Progress Note ---
Progress Note-Cardiology Events since last exam Date Seen by Provider: November 12, 2021 Time Seen by Provider: 09:58 Events since last exam I was initially following her due to elevated troponin level but then she de veloped cardiopulmonary arrest on 11/11. She remains intubated and sedated in the intensive care unit. She does open her eyes when sedation is lightened. She had been on some norepinephrine overnight but this has been discontinued. I am not able to obtain any history from the patient due to the sedation. I did speak with her nurse. Certain portions of this document may have been dictated utilizing voice recognition technology. Inherent to this technology, typographical and grammatical errors may exist. As much as I am diligent to identify and correct these mistakes, some errors may remain in the document. Vitals Last set of Vitals Signs Vital Signs 11/12/21 11/12/21 07:40 09:00 Temp 36.9 Pulse 113 Resp 18 B/P (MAP) 95/50 Pulse Ox 94 O2 Delivery Mechanical Ventilator O2 Flow Rate 30.00 Labs Labs Laboratory Tests 11/12/21 04:45 Exam Vital Signs Vital Signs Date Time Temp Pulse Resp B/P (MAP) Pulse Ox O2 Delivery O2 Flow Rate FiO2 11/12/21 09:00 113 18 95/50 94 Mechanical Ventilator 30.00 11/12/21 08:00 30 11/12/21 07:40 36.9 Physical Exam General: Intubated and sedated. Well nourished and appears stated age. She is morbidly obese. Eye: Conjunctivae are clear. There are no xanthelasma. HENT: Normocephalic. Atraumatic. Carotid pulsations 2/2 without bruits. Neck: Jugular venous pressure does not appear elevated. No thyromegaly appreciated. Respiratory: Symmetrical expansion bilaterally. Coarse breath sounds due to the ventilator. Cardiovascular: Tachycardia. Regular rhythm. 2/6 holosystolic murmur. No gallop. Point of maximal impulse is not appear displaced. Good pulses equal in all extremities. 2+ bilateral pretibial edema. Gastrointestinal: Soft. Normal bowel sounds. Skin: Skin turgor is normal. There is no pallor. Musculoskeletal: No obvious deformities. Neurologic: Intubated and sedated. Psychiatric: Not obtainable due to clinical status. Labs Laboratory Tests Test 11/11/21 11:43 11/11/21 18:05 11/11/21 23:37 11/12/21 04:45 Range/Units Glucometer 241 H 237 H 235 H 70-110 MG/DL White Blood Count 19.6 H 4.3-11.0 10^3/uL Red Blood Count 4.09 3.80-5.11 10^6/uL Hemoglobin 10.7 L 11.5-16.0 g/dL Hematocrit 35 35-52 % Mean Corpuscular Volume 86 80-99 fL Mean Corpuscular Hemoglobin 26 25-34 pg Mean Corpuscular Hemoglobin Concent 30 L 32-36 g/dL Red Cell Distribution Width 14.6 H 10.0-14.5 % Platelet Count 211 130-400 10^3/uL Mean Platelet Volume 11.7 9.0-12.2 fL Immature Granulocyte % (Auto) 1 % Neutrophils (%) (Auto) 81 H 42-75 % Lymphocytes (%) (Auto) 10 L 12-44 % Monocytes (%) (Auto) 8 0-12 % Eosinophils (%) (Auto) 1 0-10 % Basophils (%) (Auto) 0 0-10 % Neutrophils # (Auto) 15.8 H 1.8-7.8 10^3/uL Lymphocytes # (Auto) 2.0 1.0-4.0 10^3/uL Monocytes # (Auto) 1.5 H 0.0-1.0 10^3/uL Eosinophils # (Auto) 0.1 0.0-0.3 10^3/uL Basophils # (Auto) 0.1 0.0-0.1 10^3/uL Immature Granulocyte # (Auto) 0.1 0.0-0.1 10^3/uL Sodium Level 142 135-145 MMOL/L Potassium Level 3.8 3.6-5.0 MMOL/L Chloride Level 110 H 98-107 MMOL/L Carbon Dioxide Level 19 L 21-32 MMOL/L Anion Gap 13 5-14 MMOL/L Blood Urea Nitrogen 30 H 7-18 MG/DL Creatinine 2.15 H 0.60-1.30 MG/DL Estimat Glomerular Filtration Rate 26 BUN/Creatinine Ratio 14 Glucose Level 247 H 70-105 MG/DL Calcium Level 8.1 L 8.5-10.1 MG/DL Corrected Calcium 9.5 8.5-10.1 MG/DL Phosphorus Level 3.3 2.3-4.7 MG/DL Magnesium Level 1.8 1.6-2.4 MG/DL Total Bilirubin 0.4 0.1-1.0 MG/DL Aspartate Amino Transf (AST/SGOT) 145 H 5-34 U/L Alanine Aminotransferase (ALT/SGPT) 75 H 0-55 U/L Alkaline Phosphatase 118 40-136 U/L Total Creatine Kinase 716 H 29-168 U/L Creatine Kinase MB 4.9 <6.6 NG/ML Myoglobin 3840.8 H 10.0-92.0 NG/ML Troponin I 7.468 *H <0.028 NG/ML Total Protein 5.9 L 6.4-8.2 GM/DL Albumin 2.2 L 3.2-4.5 GM/DL Test 11/12/21 05:09 Range/Units Blood Gas Puncture Site RT RADIAL Blood Gas Patient Temperature 37.3 Arterial Blood pH 7.26 *L 7.37-7.43 Arterial Blood Partial Pressure CO2 48 H 35-45 MMHG Arterial Blood Partial Pressure O2 78 L 79-93 MMHG Arterial Blood HCO3 21 L 23-27 MMOL/L Arterial Blood Total CO2 22.5 21.0-31.0 MMOL/L Arterial Blood Oxygen Saturation 95 94-100 % Arterial Blood Base Excess -4.8 L -2.5-2.5 MMOL/L Vernon Test YES-POS Blood Gas Ventilator Setting YES Blood Gas Inspired Oxygen 30% Radiology Electrocardiogram from 11/12 shows sinus tachycardia at 115 bpm with borderline anterior ST elevation. Diagnosis/Problems Diagnosis/Problems (1) Cardiopulmonary arrest with successful resuscitation Status: Acute Assessment & Plan: Her postintubation/postcode chest x-ray shows complete whiteout of the left lung. She underwent a bronchoscopy and had significant mucous plugging removed. Her respiratory status is gradually improving. (2) Elevated troponin Status: Acute Assessment & Plan: I suspect this is due to rhabdomyolysis and does not represent an acute coronary syndrome. However, once she recovers from the acute, noncardiac illness, we may want to consider an ischemic evaluation. We will need to wait and see how she does following this cardiopulmonary arrest incident. I have started her on low strength aspirin and high-dose statin. (3) Coronary artery disease without angina pectoris Status: Chronic Assessment & Plan: Despite her fall and elevated troponin, she was not reporting any chest discomfort prior to the cardiopulmonary arrest in the hospital. She has borderline ischemic changes on her electrocardiogram. As above, I suspect the troponin elevation is due to rhabdomyolysis. We will continue aspirin and statin medication as above. If her blood pressure improves overnight, I will consider starting low-dose beta-ran in the next 24-48 hours. (4) Shock Assessment & Plan: She did develop some shock following the cardiopulmonary arrest and required some norepinephrine infusion for less than 24 hours. Exact etiology of the shock is unclear. We will continue to monitor her blood pressures closely. (5) Primary hypertension Assessment & Plan: She has a reported history of hypertension but may not have been taking any medication for this at home. In light of the cardiopulmonary arrest, I will hold off on adding any antihypertensive agents at this time unless she becomes more hypertensive. As above, she did actually require some norepinephrine overnight. (6) Mixed hyperlipidemia Assessment & Plan: Her cholesterol level was markedly elevated at the time of admission. I ordered high-dose statin medication. (7) Rhabdomyolysis Status: Acute Assessment & Plan: She is receiving intravenous fluids under the direction of the hospitalist. (8) Morbid obesity Status: Chronic Assessment & Plan: She needs to work on weight loss assuming she survives this critical illness. Problem Qualifiers (1) Coronary artery disease without angina pectoris: Coronary Disease-Associated Artery/Lesion type: bypass graft [place] vs. transplanted heart: [place] heart Qualified Codes: I25.810 - Atherosclerosis o f coronary artery bypass graft(s) without angina pectoris (2) Rhabdomyolysis: Rhabdomyolysis type: traumatic Encounter type: initial encounter Qualified Codes: T79.6XXA - Traumatic ischemia of muscle, initial encounter ROGER TUCKER JR, MD November 12, 2021 10:04
--- NOTE | 2021-11-12 10:26 | Progress Note ---
Standard Progress Note Progress Notes/Assess & Plan Date Seen by a Provider: November 12, 2021 Time Seen by a Provider: 10:00 Progress/Assessment & Plan doing slightly better. on FiO2 30% and peep 10. tolerating TF's. will start zosyn for suspected aspiration pneumonia. Focused Exam Lactate Level 11/10/21 01:26: Lactic Acid Level 3.41*H 11/10/21 04:20: Lactic Acid Level 2.94*H 11/10/21 06:45: Lactic Acid Level 1.77 Time of Focused Exam: 00:30 LUCA GUTIERREZ MD November 12, 2021 10:26
[2021-11-12 10:56] VITALS: BP 95/50
[2021-11-12] MEDS ORDERED: PIPERACILLIN SODIUM/TAZOBACTAM 4.5 GM in NS (IVPB) 100 ML IV ONE (11:00)
[2021-11-12 14:38] VITALS: BP 106/52
[2021-11-12] MEDS: PIPERACILLIN SODIUM/TAZOBACTAM 4.5 GM in NS (IVPB) 100 ML IV SCH (16:55)
[2021-11-12 18:48] VITALS: BP 115/54
[2021-11-12 22:38] VITALS: BP 119/55
[2021-11-13] MEDS: PIPERACILLIN SODIUM/TAZOBACTAM 4.5 GM in NS (IVPB) 100 ML IV SCH ×3 (00:25→16:34)
[2021-11-13 03:17] VITALS: BP 118/59
[2021-11-13] MEDS: RT-ALBUTEROL SULF 2.5 MG/3 ML PRE-MIX VIAL INH SCH ×6 (03:17→22:12)
[2021-11-13 04:48] LABS: ABG BASE EXCESS -4.7 MMOL/L (-2.5-2.5); ABG OXYGEN SATURATION 97 % (94-100); ABG PCO2 41 MMHG (35-45); ABG PO2 84 MMHG (79-93); ABG TCO2 21.5 MMOL/L (21.0-31.0)
[2021-11-13 04:51] LABS: BASOPHILS # (AUTO) 0.1 10^3/uL (0.0-0.1); BASOPHILS % (AUTO) 0 % (0-10); EOSINOPHILS # (AUTO) 0.2 10^3/uL (0.0-0.3); EOSINOPHILS % (AUTO) 1 % (0-10); HEMATOCRIT 33 % (35-52); HEMOGLOBIN 9.9 g/dL (11.5-16.0); LYMPHOCYTES # (AUTO) 2.4 10^3/uL (1.0-4.0); LYMPHOCYTES % (AUTO) 12 % (12-44); MEAN CORPUSCULAR HEMOGLOBIN 26 pg (25-34); MEAN CORPUSCULAR HGB CONC 30 g/dL (32-36); MEAN CORPUSCULAR VOLUME 86 fL (80-99); MEAN PLATELET VOLUME 12.3 fL (9.0-12.2); MONOCYTES # (AUTO) 1.5 10^3/uL (0.0-1.0); MONOCYTES % (AUTO) 7 % (0-12); NEUTROPHILS # (AUTO) 16.1 10^3/uL (1.8-7.8); NEUTROPHILS % (AUTO) 79 % (42-75); PLATELET COUNT 202 10^3/uL (130-400); WHITE BLOOD COUNT 20.3 10^3/uL (4.3-11.0)
[2021-11-13 04:55] LABS: ABG PH 7.32 (7.37-7.43); ALLENS TEST YES-POS
[2021-11-13 04:56] LABS: INSPIRED O2 30%; PATIENT TEMP 37.6; VENTILATOR YES
[2021-11-13 05:03] LABS: ALBUMIN 2.1 GM/DL (3.2-4.5); POTASSIUM 4.3 MMOL/L (3.6-5.0)
[2021-11-13 05:05] LABS: CALCIUM 7.9 MG/DL (8.5-10.1)
[2021-11-13 05:06] LABS: TOTAL PROTEIN 6.1 GM/DL (6.4-8.2)
[2021-11-13 05:07] LABS: BILIRUBIN,TOTAL 0.9 MG/DL (0.1-1.0)
[2021-11-13 05:09] LABS: CREATININE SERUM 2.74 MG/DL (0.60-1.30)
[2021-11-13 05:20] LABS: CREATINE KINASE MB 2.3 NG/ML (<6.6)
[2021-11-13] MEDS: inSUlin ASPART (NovoLOG) 1 UNIT/0.01 ML (CHARGE PER UNIT) SC SCH ×4 (05:29→23:48)
[2021-11-13] MEDS: NOREPINEPHRINE 8 MG/250 ML 250 ML IV SCH ×2 (06:31→16:35)
--- NOTE | 2021-11-13 07:03 | Progress Note - Hospitalist ---
Subjective HPI/CC On Admission Date Seen by Provider: November 13, 2021 Time Seen by Provider: 11:00 Subjective/Events-last exam Pt declining Updated brother outside of room in consultation room YANET now Updated no neurological function at this time off sedation for 48 hours DNR obtained Focused Exam Time of Focused Exam: 00:30 Objective Exam Vital Signs Vital Signs Date Time Temp Pulse Resp B/P (MAP) Pulse Ox O2 Delivery O2 Flow Rate FiO2 11/13/21 20:00 36.1 11/13/21 19:54 98 Mechanical Ventilator 28 11/13/21 19:52 84 22 147/69 28.00 Capillary Refill : Less Than 3 Seconds General Appearance: No Apparent Distress, Chronically ill, Other (on vent, unresponsive) Respiratory: Lungs Clear, Normal Breath Sounds Cardiovascular: Regular Rate, Rhythm Results/Procedures Lab Laboratory Tests 11/13/21 04:26 Patient resulted labs reviewed. Assessment/Plan Assessment and Plan Assess & Plan/Chief Complaint Assessment/Plan (1) Cardiopulmonary arrest with successful resuscitation Status: Acute Assessment & Plan: s/p about 5 minutes of CPR and 2 doses of epinephrine, minimally to unresponsive after, now intubated. BP okay initially, monitor closely. See goals of care discussion. (2) Respiratory failure Status: Acute Assessment & Plan: Suspect possibly pulmonary edema vs mucous plugging given she has been receiving large amount as was needed for her rhabdo, and her post- intubation CXR shows white-out of left side, contacted Dr. Chanel del rosario for possible bronchoscopy. Lasix 20 mg IV given before code event when her hypoxia was worsening. IVF running at 30 mls/hr with potassium. Qualifiers: Qualified Codes: J96.01 - Acute respiratory failure with hypoxia (3) Sepsis Status: Acute Assessment & Plan: Secondary to urinary tract infection, IVF and ceftriaxone. Culture pending. 11/11 holding IVF due to hypoxic respiratory failure. Qualifiers: (4) Lactic acidosis Status: Resolved Assessment & Plan: 11/10- Suspect secondary to tissue hypoxia with rhabdo, resolved overnight with IVF. (5) Candidal intertrigo Status: Acute Assessment & Plan: 11/10- Severe, diffuse, will treat with diflucan x 7 days. (6) Morbid obesity Status: Chronic (7) Hypothermia Status: Acute Assessment & Plan: Improving, continue treating underlying conditions Qualifiers: Qualified Codes: T68.XXXA - Hypothermia, initial encounter (8) Renal insufficiency Status: Acute Assessment & Plan: Trending improved with IVF resuscitation, suspect secondary to dehydration and rhabdomyolysis 11/11 creatinine trending down, but now holding IVF due to hypoxic respiratory failure (9) UTI (urinary tract infection) Status: Acute Assessment & Plan: Culture pending, ceftriaxone started. (10) Uncontrolled diabetes mellitus Status: Chronic Assessment & Plan: Reviewed clinic chart, 10/10/21 A1c 11.3 Sliding scale insulin, diabetic diet when tolerating oral. Was not taking home medications for some time. Qualifiers: Qualified Codes: E11.65 - Type 2 diabetes mellitus with hyperglycemia (11) Elevated troponin Status: Acute Assessment & Plan: Cardiology consulted, appreciate recommendations. Suspect related to rhabdo rather than new cardiac event. (12) Contusion of right shoulder Status: Acute Assessment & Plan: Xray without fracture Qualifiers: Qualified Codes: S40.011A - Contusion of right shoulder, initial encounter (13) Fall from standing Status: Acute Assessment & Plan: PT when able Qualifiers: Qualified Codes: W19.XXXA - Unspecified fall, initial encounter (14) Rhabdomyolysis Status: Acute Assessment & Plan: IVF, monitor CK and creatinine Qualifiers: Qualified Codes: T79.6XXA - Traumatic ischemia of muscle, initial encounter (15) Hypertension Status: Chronic Qualifiers: Qualified Codes: I10 - Essential (primary) hypertension (16) Hyperlipidemia Status: Chronic (17) Coronary artery disease without angina pectoris Status: Chronic Assessment & Plan: History of bypass, has not been taking medications at home. Restarted aspirin, cannot tolerate beta ran and ACEI due to current BP. Qualifiers: Qualified Codes: I25.810 - Atherosclerosis of coronary artery bypass graft(s) without angina pectoris (18) DVT prophylaxis Status: Acute Assessment & Plan: Enoxaparin (19) Goals of care, counseling/discussion Status: Acute Assessment & Plan: 11/11 Spoke with brother Alan this morning after code event, pt was unable to have in depth conversation yesterday and he reports they haven't really talked about her wishes. He does feel confident that if she has hypoxic brain insult, she would not want to be on the ventilator for a prolonged period. He also notes that she has been failing at home for some time, she does not drive, she is not taking her medications and has been having more and more difficulty getting around but has resisted moving in with someone else, although after the last time she fell, her family told her if she had another fall they felt she could not go back to her home alone. Discussed that it is difficult to know yet whether she has sustained further correction consequences after her arrest, and will monitor closely over next 24-48 hours with the recognition that family does feel she would prefer comfort over aggressive care if not thought to be likely to be beneficial. Plan: Supportive care Assess neurologic function 11/13/21: DNR Poor prognosis VANDANA KNOWLES DO November 13, 2021 07:03
[2021-11-13] MEDS: aCETylcysteine 20% (MUCOMYST) 4 ML SOLN VIAL INH SCH ×3 (07:10→22:12)
[2021-11-13 07:11] VITALS: BP 129/66
[2021-11-13] MEDS: PANTOPRAZOLE 40 MG (PROTONIX) VIAL IV SCH (08:44)
[2021-11-13] MEDS: ASPIRIN E.C. 81 MG (ECOTRIN) TAB PO SCH (08:45)
[2021-11-13] MEDS: FLUCONAZOLE 100 MG/50 ML 50 ML IV SCH (08:45)
[2021-11-13] MEDS: NS IV 1000 ML 1,000 ML IV SCH ×2 (08:45→16:34)
[2021-11-13] MEDS: ENOXAPARIN 40 MG/0.4 ML (LOVENOX) SYR SC SCH ×2 (08:45→21:12)
[2021-11-13] MEDS: MICONAZOLE 2% POWDER (DESENEX AF) 90 GM TOP SCH ×2 (08:46→21:13)
[2021-11-13] MEDS ORDERED: ACETAMINOPHEN 325 MG TABLET ONE (09:06)
[2021-11-13] MEDS ORDERED: ACETAMINOPHEN 325 MG TABLET NG PRN (09:30)
--- NOTE | 2021-11-13 09:54 | Progress Note ---
Subjective Date Seen by a Provider: November 13, 2021 Time Seen by a Provider: 09:30 Subjective/Events-last exam patient resposive to some stimuli. respiratory/vent status improving however worsening renal failure. Focused Exam Time of Focused Exam: 00:30 Objective Exam Vital Signs Date Time Temp Pulse Resp B/P (MAP) Pulse Ox O2 Delivery O2 Flow Rate FiO2 11/13/21 09:00 98 25 135/67 95 Mechanical Ventilator 30.00 11/13/21 08:00 98 25 123/59 91 Mechanical Ventilator 30.00 11/13/21 07:42 37.7 11/13/21 07:11 96 20 97 30 11/13/21 07:00 95 25 124/59 97 Mechanical Ventilator 30.00 11/13/21 07:00 96 11/13/21 06:00 97 24 130/63 97 Mechanical Ventilator 30.00 11/13/21 05:00 93 15 117/58 97 Mechanical Ventilator 30.00 11/13/21 04:00 94 10 118/55 96 Mechanical Ventilator 30.00 11/13/21 04:00 97 Mechanical Ventilator 30 11/13/21 04:00 37.6 11/13/21 03:17 95 26 99 30 11/13/21 03:00 96 10 120/57 96 Mechanical Ventilator 30.00 11/13/21 02:00 99 10 121/55 96 Mechanical Ventilator 30.00 11/13/21 01:00 95 11/13/21 01:00 95 10 115/55 96 Mechanical Ventilator 30.00 11/13/21 00:00 96 18 120/55 97 Mechanical Ventilator 30.00 11/12/21 23:59 95 Mechanical Ventilator 30 11/12/21 23:00 97 35 123/54 97 Mechanical Ventilator 30.00 11/12/21 22:38 95 23 98 30 11/12/21 22:00 98 24 118/55 97 Mechanical Ventilator 30.00 11/12/21 21:00 99 20 122/55 97 Mechanical Ventilator 30.00 11/12/21 20:00 95 Mechanical Ventilator 30 11/12/21 20:00 101 17 112/51 95 Mechanical Ventilator 30.00 11/12/21 19:00 99 16 115/55 94 Mechanical Ventilator 30.00 11/12/21 19:00 100 11/12/21 18:48 100 26 95 30 11/12/21 18:00 98 26 112/55 97 Mechanical Ventilator 30.00 11/12/21 17:45 37.8 11/12/21 17:00 98 13 106/49 96 Mechanical Ventilator 30.00 11/12/21 16:54 37.7 11/12/21 16:00 95 Mechanical Ventilator 30 11/12/21 16:00 105 18 104/51 97 Mechanical Ventilator 30.00 11/12/21 15:50 37.6 11/12/21 15:00 105 25 102/47 94 Mechanical Ventilator 30.00 11/12/21 14:38 97 19 96 30 11/12/21 14:00 100 16 101/51 95 Mechanical Ventilator 30.00 11/12/21 13:00 105 23 109/55 96 Mechanical Ventilator 30.00 11/12/21 12:51 106 11/12/21 12:00 96 Mechanical Ventilator 30 11/12/21 12:00 107 16 96/51 94 Mechanical Ventilator 30.00 11/12/21 11:50 36.9 11/12/21 11:00 105 18 99/51 96 Mechanical Ventilator 30.00 11/12/21 10:56 105 18 96 30 11/12/21 10:00 108 22 102/53 95 Mechanical Ventilator 30.00 I & O 11/13/21 07:00 Intake Total 4226 ml Output Total 675 ml Balance 3551 ml Capillary Refill : Less Than 3 Seconds General Appearance: No Apparent Distress HEENT: PERRL/EOMI Neck: Full Range of Motion Respiratory: Chest Non Tender, Decreased Breath Sounds, Rhonci Cardiovascular: Regular Rate, Rhythm Gastrointestinal: normal bowel sounds, non tender, soft Extremity: Normal Capillary Refill Neurologic/Psychiatric: Other (on vent/sedated) Skin: Normal Color Lymphatic: No Adenopathy Results Lab Laboratory Tests 11/12/21 11:36: Glucometer 262H 11/12/21 17:45: Glucometer 274H 11/12/21 23:47: Glucometer 265H 11/13/21 04:26: White Blood Count 20.3H, Red Blood Count 3.81, Hemoglobin 9.9L, Hematocrit 33L, Mean Corpuscular Volume 86, Mean Corpuscular Hemoglobin 26, Mean Corpuscular Hemoglobin Concent 30L, Red Cell Distribution Width 15.1H, Platelet Count 202, Mean Platelet Volume 12.3H, Immature Granulocyte % (Auto) 1, Neutrophils (%) (Auto) 79H, Lymphocytes (%) (Auto) 12, Monocytes (%) (Auto) 7, Eosinophils (%) (Auto) 1, Basophils (%) (Auto) 0, Neutrophils # (Auto) 16.1H, Lymphocytes # (Auto) 2.4, Monocytes # (Auto) 1.5H, Eosinophils # (Auto) 0.2, Basophils # (Auto) 0.1, Immature Granulocyte # (Auto) 0.2H, Blood Gas Puncture Site RIGHT RADIAL, Blood Gas Patient Temperature 37.6, Arterial Blood pH 7.32*L, Arterial Blood Partial Pressure CO2 41, Arterial Blood Partial Pressure O2 84, Arterial Blood HCO3 20L, Arterial Blood Total CO2 21.5, Arterial Blood Oxygen Saturation 97, Arterial Blood Base Excess -4.7L, [place] Test YES-POS, Blood Gas Ventilator Setting YES, Blood Gas Inspired Oxygen 30%, Sodium Level 141, Potassium Level 4.3, Chloride Level 109H, Carbon Dioxide Level 17L, Anion Gap 15H, Blood Urea Nitrogen 38H, Creatinine 2.74#H, Estimat Glomerular Filtration Rate 19, BUN/Creatinine Ratio 14, Glucose Level 327H, Calcium Level 7.9L, Corrected Calcium 9.4, Phosphorus Level 3.0, Magnesium Level 2.0, Total Bilirubin 0.9, Aspartate Amino Transf (AST/SGOT) 138H, Alanine Aminotransferase (ALT/SGPT) 85H, Alkaline Phosphatase 209H, Total Creatine Kinase 1666H, Creatine Kinase MB 2.3, Myoglobin 2359.0H, Troponin I 6.708*H, Total Protein 6.1L, Albumin 2.1L, Triglycerides Level 490#H Microbiology 11/11/21 Mycobacterial Culture - Preliminary, Resulted 11/10/21 Blood Culture - Preliminary, Resulted No growth 11/09/21 Urine Culture - Final, Complete 3 or more isolates Assessment/Plan Assessment/Plan Assess & Plan/Chief Complaint fall,loss of consciousness, obtundation and dehydration, respiratory and renal failure. cont vent ween. renal fxn worsening. fluids and monitory vs. transfer and CVVHD? cont abx and antifungal. LUCA GUTIERREZ MD November 13, 2021 09:54
--- NOTE | 2021-11-13 10:08 | Diagnostic Imaging Report ---
CLINICAL INDICATION: Patient on ventilator. EXAM: Portable chest x-ray upright view. COMPARISON: Chest x-ray dated 11/12/2021. FINDINGS: ET tube and feeding tube are again seen in good position as visualized. Right IJ central line seen in stable good position. Postop change to the chest consistent with CABG is seen. There is progressive consolidation left lung base which may be related to left lung base atelectasis versus infiltrate and possible left pleural effusion. Cardiac silhouette is within normal limits. There is no significant pulmonary vascular congestion. IMPRESSION: 1: There is progression of the left lung base consolidation which may be related to left lung base atelectasis or infiltrate and/or left pleural effusion. 2: The remainder of this exam shows no significant interval change compared to the prior study of comparison. Dictated by: Dictated on workstation # [id number]
--- NOTE | 2021-11-13 10:08 | Cardiology Progress Note ---
Progress Note-Cardiology Events since last exam Date Seen by Provider: November 13, 2021 Time Seen by Provider: 10:03 Events since last exam I am following her due to elevated troponin and then cardiopulmonary arrest. She remains intubated in the intensive care unit. She has not been on any sedation and has been essentially unresponsive. The nurse tells me that at times she will grimace but is not responding to sternal rub or making any purposeful movements. Certain portions of this document may have been dictated utilizing voice recognition technology. Inherent to this technology, typographical and gramm atical errors may exist. As much as I am diligent to identify and correct these mistakes, some errors may remain in the document. Vitals Last set of Vitals Signs Vital Signs 11/13/21 11/13/21 11/13/21 07:42 08:00 09:00 Temp 37.7 Pulse 98 Resp 25 B/P (MAP) 135/67 Pulse Ox 95 O2 Delivery Mechanical Ventilator O2 Flow Rate 30.00 FiO2 30 Labs Labs Laboratory Tests 11/13/21 04:26 Exam Vital Signs Vital Signs Date Time Temp Pulse Resp B/P (MAP) Pulse Ox O2 Delivery O2 Flow Rate FiO2 11/13/21 09:00 98 25 135/67 95 Mechanical Ventilator 30.00 11/13/21 08:00 30 11/13/21 07:42 37.7 Physical Exam General: Intubated and unresponsive on no sedation. Well nourished and appears stated age. She is morbidly obese. Eye: Conjunctivae are clear. There are no xanthelasma. HENT: Normocephalic. Atraumatic. Carotid pulsations 2/2 without bruits. Neck: Jugular venous pressure does not appear elevated. No thyromegaly appreciated. Respiratory: Symmetrical expansion bilaterally. Coarse breath sounds due to the ventilator. Cardiovascular: Normal rate. Regular rhythm. Distant S1/S2. No murmur. No g allop. Point of maximal impulse is not appear displaced. Good pulses equal in all extremities. No edema. Gastrointestinal: Soft. Hypoactive bowel sounds. Skin: Skin turgor is normal. There is no pallor. Musculoskeletal: No obvious deformities. Neurologic: Intubated and essentially unresponsive on no sedation. Psychiatric: Not obtainable due to clinical status. Labs Laboratory Tests Test 11/12/21 11:36 11/12/21 17:45 11/12/21 23:47 11/13/21 04:26 Range/Units Glucometer 262 H 274 H 265 H 70-110 MG/DL White Blood Count 20.3 H 4.3-11.0 10^3/uL Red Blood Count 3.81 3.80-5.11 10^6/uL Hemoglobin 9.9 L 11.5-16.0 g/dL Hematocrit 33 L 35-52 % Mean Corpuscular Volume 86 80-99 fL Mean Corpuscular Hemoglobin 26 25-34 pg Mean Corpuscular Hemoglobin Concent 30 L 32-36 g/dL Red Cell Distribution Width 15.1 H 10.0-14.5 % Platelet Count 202 130-400 10^3/uL Mean Platelet Volume 12.3 H 9.0-12.2 fL Immature Granulocyte % (Auto) 1 % Neutrophils (%) (Auto) 79 H 42-75 % Lymphocytes (%) (Auto) 12 12-44 % Monocytes (%) (Auto) 7 0-12 % Eosinophils (%) (Auto) 1 0-10 % Basophils (%) (Auto) 0 0-10 % Neutrophils # (Auto) 16.1 H 1.8-7.8 10^3/uL Lymphocytes # (Auto) 2.4 1.0-4.0 10^3/uL Monocytes # (Auto) 1.5 H 0.0-1.0 10^3/uL Eosinophils # (Auto) 0.2 0.0-0.3 10^3/uL Basophils # (Auto) 0.1 0.0-0.1 10^3/uL Immature Granulocyte # (Auto) 0.2 H 0.0-0.1 10^3/uL Blood Gas Puncture Site RIGHT RADIAL Blood Gas Patient Temperature 37.6 Arterial Blood pH 7.32 *L 7.37-7.43 Arterial Blood Partial Pressure CO2 41 35-45 MMHG Arterial Blood Partial Pressure O2 84 79-93 MMHG Arterial Blood HCO3 20 L 23-27 MMOL/L Arterial Blood Total CO2 21.5 21.0-31.0 MMOL/L Arterial Blood Oxygen Saturation 97 94-100 % Arterial Blood Base Excess -4.7 L -2.5-2.5 MMOL/L Vernon Test YES-POS Blood Gas Ventilator Setting YES Blood Gas Inspired Oxygen 30% Sodium Level 141 135-145 MMOL/L Potassium Level 4.3 3.6-5.0 MMOL/L Chloride Level 109 H 98-107 MMOL/L Carbon Dioxide Level 17 L 21-32 MMOL/L Anion Gap 15 H 5-14 MMOL/L Blood Urea Nitrogen 38 H 7-18 MG/DL Creatinine 2.74 #H 0.60-1.30 MG/DL Estimat Glomerular Filtration Rate 19 BUN/Creatinine Ratio 14 Glucose Level 327 H 70-105 MG/DL Calcium Level 7.9 L 8.5-10.1 MG/DL Corrected Calcium 9.4 8.5-10.1 MG/DL Phosphorus Level 3.0 2.3-4.7 MG/DL Magnesium Level 2.0 1.6-2.4 MG/DL Total Bilirubin 0.9 0.1-1.0 MG/DL Aspartate Amino Transf (AST/SGOT) 138 H 5-34 U/L Alanine Aminotransferase (ALT/SGPT) 85 H 0-55 U/L Alkaline Phosphatase 209 H 40-136 U/L Total Creatine Kinase 1666 H 29-168 U/L Creatine Kinase MB 2.3 <6.6 NG/ML Myoglobin 2359.0 H 10.0-92.0 NG/ML Troponin I 6.708 *H <0.028 NG/ML Total Protein 6.1 L 6.4-8.2 GM/DL Albumin 2.1 L 3.2-4.5 GM/DL Triglycerides Level 490 #H <150 MG/DL Diagnosis/Problems Diagnosis/Problems (1) Cardiopulmonary arrest with successful resuscitation Status: Acute Assessment & Plan: Her postintubation/postcode chest x-ray showed complete whiteout of the left lung. She underwent a bronchoscopy and had significant mucous plugging removed. Her chest x-ray and pulmonary status had improved. Unfortunately, she has been unresponsive. If she does not make any improvement in her neurologic status over the next 24 to 48 hours, then she may need to be made comfort care. (2) Elevated troponin Status: Acute Assessment & Plan: I suspect this is due to rhabdomyolysis and does not represent an acute coronary syndrome. We will need to wait and see how she does following this cardiopulmonary arrest incident before we can consider any additional cardiac testing. I have started her on low strength aspirin and high-dose statin. (3) Coronary artery disease without angina pectoris Status: Chronic Assessment & Plan: Despite her fall and elevated troponin, she was not reporting any chest discomfort prior to the cardiopulmonary arrest in the hospital. She has borderline ischemic changes on her electrocardiogram. As above, I suspect the troponin elevation is due to rhabdomyolysis. We will continue aspirin and statin medication as above. (4) Shock Assessment & Plan: She did develop some shock following the cardiopulmonary arrest and required some norepinephrine infusion for less than 24 hours. Exact etiology of the shock is unclear. We will continue to monitor her blood pressures closely. (5) Primary hypertension Assessment & Plan: She has a reported history of hypertension but may not have been taking any medication for this at home. In light of the cardiopulmonary arrest, I will hold off on adding any antihypertensive agents at this time unless she becomes more hypertensive. As above, she did actually require some norepinephrine overnight. (6) Mixed hyperlipidemia Assessment & Plan: Her cholesterol level was markedly elevated at the time of admission. Statin medication is on hold due to markedly abnormal liver function tests. (7) Acute kidney injury Assessment & Plan: She now appears to be developing acute renal failure. I suspect this is multifactorial due to the rhabdomyolysis and then cardiac arrest with a brief period of shock. (8) Rhabdomyolysis Status: Acute Assessment & Plan: She had been receiving intravenous fluids under the direction of the hospitalist. (9) Morbid obesity Status: Chronic Assessment & Plan: She needs to work on weight loss assuming she survives this critical illness. Problem Qualifiers (1) Coronary artery disease without angina pectoris: Coronary Disease-Associated Artery/Lesion type: bypass graft [place] vs. transplanted heart: [place] heart Qualified Codes: I25.810 - Atherosclerosis of coronary artery bypass graft(s) without angina pectoris (2) Rhabdomyolysis: Rhabdomyolysis type: traumatic Encounter type: initial encounter Qualified Codes: T79.6XXA - Traumatic ischemia of muscle, initial encounter ROGER TUCKER JR, MD November 13, 2021 10:08
--- NOTE | 2021-11-13 10:21 | Tele-ICU Progress Note ---
Progress Note video rounds completed 61 y/o s/p cardiac/resparrest On Vent : AC /15/12 sedation held since yesterday but unresponsive, probable anoxic brain injurry VS prolonged sedative effect Overall prognosis looks grim. Prob would benefit from repeat CT head or MRI to r/o intracranialpathology if no improvemnt in t 24-48 h Focused Exam Height, Weight, BMI Height: 5'2" Weight: 226lbs. oz. 102.765597np; 40.69 BMI Method: Time of Focused Exam: 00:30 Labs Laboratory Tests 11/13/21 04:26 Results Results/Procedures Labs Laboratory Tests 11/12/21 04:45 11/13/21 04:26 Patient resulted labs reviewed. Results Labs Labs Laboratory Tests 11/12/21 11:36: Glucometer 262H 11/12/21 17:45: Glucometer 274H 11/12/21 23:47: Glucometer 265H 11/13/21 04:26: White Blood Count 20.3H, Red Blood Count 3.81, Hemoglobin 9.9L, Hematocrit 33L, Mean Corpuscular Volume 86, Mean Corpuscular Hemoglobin 26, Mean Corpuscular Hemoglobin Concent 30L, Red Cell Distribution Width 15.1H, Platelet Count 202, Mean Platelet Volume 12.3H, Immature Granulocyte % (Auto) 1, Neutrophils (%) (Auto) 79H, Lymphocytes (%) (Auto) 12, Monocytes (%) (Auto) 7, Eosinophils (%) (Auto) 1, Basophils (%) (Auto) 0, Neutrophils # (Auto) 16.1H, Lymphocytes # (Auto) 2.4, Monocytes # (Auto) 1.5H, Eosinophils # (Auto) 0.2, Basophils # (Auto) 0.1, Immature Granulocyte # (Auto) 0.2H, Blood Gas Puncture Site RIGHT RADIAL, Blood Gas Patient Temperature 37.6, Arterial Blood pH 7.32*L, Arterial Blood Partial Pressure CO2 41, Arterial Blood Partial Pressure O2 84, Arterial Blood HCO3 20L, Arterial Blood Total CO2 21.5, Arterial Blood Oxygen Saturation 97, Arterial Blood Base Excess -4.7L, Vernon Test YES-POS, Blood Gas Ventilator Setting YES, Blood Gas Inspired Oxygen 30%, Sodium Level 141, Potassium Level 4.3, Chloride Level 109H, Carbon Dioxide Level 17L, Anion Gap 15H, Blood Urea Nitrogen 38H, Creatinine 2.74#H, Estimat Glomerular Filtration Rate 19, BUN/Creatinine Ratio 14, Glucose Level 327H, Calcium Level 7.9L, Corrected Calc ium 9.4, Phosphorus Level 3.0, Magnesium Level 2.0, Total Bilirubin 0.9, Aspartate Amino Transf (AST/SGOT) 138H, Alanine Aminotransferase (ALT/SGPT) 85H, Alkaline Phosphatase 209H, Total Creatine Kinase 1666H, Creatine Kinase MB 2.3, Myoglobin 2359.0H, Troponin I 6.708*H, Total Protein 6.1L, Albumin 2.1L, Triglycerides Level 490#H Microbiology 11/11/21 Mycobacterial Culture - Preliminary, Resulted 11/10/21 Blood Culture - Preliminary, Resulted No growth 11/09/21 Urine Culture - Final, Complete 3 or more isolates ROGER TORRES MD November 13, 2021 10:21
[2021-11-13 10:30] VITALS: BP 136/65
[2021-11-13] MEDS: fentaNYL DRIP PRE-MIX 250 ML IV SCH (13:40)
[2021-11-13 14:28] VITALS: BP 136/65
[2021-11-13 18:45] VITALS: BP 141/67
[2021-11-13] MEDS ORDERED: VANCOMYCIN INJECTION 1,000 MG in NS (IVPB) 250 ML IV SCH (20:15)
[2021-11-13] MEDS ORDERED: VANCOMYCIN INJECTION 1,000 MG in NS (IVPB) 250 ML IV ONE (22:00)
[2021-11-13 22:13] VITALS: BP 141/67
[2021-11-14] VITALS (7 sets, daily range): BP systolic 143–151; BP diastolic 70–75
[2021-11-14] MEDS: PIPERACILLIN SODIUM/TAZOBACTAM 4.5 GM in NS (IVPB) 100 ML IV SCH ×3 (01:05→16:47)
[2021-11-14] MEDS: NS IV 1000 ML 1,000 ML IV SCH ×3 (01:38→20:54)
[2021-11-14] MEDS: RT-ALBUTEROL SULF 2.5 MG/3 ML PRE-MIX VIAL INH SCH ×6 (02:24→22:25)
[2021-11-14 04:39] LABS: BASOPHILS % (AUTO) 0 % (0-10); EOSINOPHILS # (AUTO) 0.2 10^3/uL (0.0-0.3); EOSINOPHILS % (AUTO) 1 % (0-10); HEMATOCRIT 34 % (35-52); HEMOGLOBIN 10.1 g/dL (11.5-16.0); LYMPHOCYTES # (AUTO) 1.2 10^3/uL (1.0-4.0); LYMPHOCYTES % (AUTO) 7 % (12-44); MEAN CORPUSCULAR HEMOGLOBIN 25 pg (25-34); MEAN CORPUSCULAR HGB CONC 30 g/dL (32-36); MEAN CORPUSCULAR VOLUME 85 fL (80-99); MEAN PLATELET VOLUME 12.2 fL (9.0-12.2); MONOCYTES # (AUTO) 1.1 10^3/uL (0.0-1.0); MONOCYTES % (AUTO) 6 % (0-12); NEUTROPHILS # (AUTO) 14.8 10^3/uL (1.8-7.8); NEUTROPHILS % (AUTO) 84 % (42-75); PLATELET COUNT 178 10^3/uL (130-400); WHITE BLOOD COUNT 17.7 10^3/uL (4.3-11.0)
[2021-11-14 04:40] LABS: ABG BASE EXCESS -6.5 MMOL/L (-2.5-2.5); ABG OXYGEN SATURATION 94 % (94-100); ABG PCO2 43 MMHG (35-45); ABG PO2 65 MMHG (79-93); ABG TCO2 20.8 MMOL/L (21.0-31.0)
[2021-11-14 04:43] LABS: ABG PH 7.27 (7.37-7.43)
[2021-11-14 04:44] LABS: ALLENS TEST YES-POS; INSPIRED O2 25%; PATIENT TEMP 36.1; VENTILATOR YES
[2021-11-14 04:49] LABS: ALBUMIN 2.2 GM/DL (3.2-4.5); POTASSIUM 4.2 MMOL/L (3.6-5.0)
[2021-11-14 04:50] LABS: CALCIUM 8.3 MG/DL (8.5-10.1)
[2021-11-14 04:51] LABS: TOTAL PROTEIN 6.3 GM/DL (6.4-8.2)
[2021-11-14 04:53] LABS: BILIRUBIN,TOTAL 0.8 MG/DL (0.1-1.0)
[2021-11-14 04:55] LABS: CREATININE SERUM 3.42 MG/DL (0.60-1.30); PHOSPHORUS 3.6 MG/DL (2.3-4.7)
[2021-11-14 04:58] LABS: MAGNESIUM 2.3 MG/DL (1.6-2.4)
[2021-11-14 05:05] LABS: CREATINE KINASE MB 2.6 NG/ML (<6.6)
[2021-11-14] MEDS: inSUlin ASPART (NovoLOG) 1 UNIT/0.01 ML (CHARGE PER UNIT) SC SCH ×3 (05:29→17:52)
[2021-11-14] MEDS: NOREPINEPHRINE 8 MG/250 ML 250 ML IV SCH ×2 (06:22→19:02)
--- NOTE | 2021-11-14 07:20 | Progress Note - Hospitalist ---
Subjective HPI/CC On Admission Date Seen by Provider: November 14, 2021 Time Seen by Provider: 10:00 Subjective/Events-last exam Patient declined Creat increased Brother at bedside DNR Cardiac function would not enable dialysis, etc. Dr Alvarado and I updated brother Focused Exam Time of Focused Exam: 00:30 Objective Exam Vital Signs Vital Signs Date Time Temp Pulse Resp B/P (MAP) Pulse Ox O2 Delivery O2 Flow Rate FiO2 11/14/21 12:48 75 11/14/21 12:30 Mechanical Ventilator 21.00 11/14/21 11:39 21 11/14/21 11:34 20 96 11/14/21 09:00 141/69 11/14/21 08:00 36.2 Capillary Refill : Less Than 3 Seconds General Appearance: Chronically ill, Obese, Other (intubated) Respiratory: Lungs Clear, Normal Breath Sounds Cardiovascular: Regular Rate, Rhythm Results/Procedures Lab Laboratory Tests 11/14/21 04:20 Patient resulted labs reviewed. Assessment/Plan Assessment and Plan Assess & Plan/Chief Complaint Assessment/Plan (1) Cardiopulmonary arrest with successful resuscitation Status: Acute Assessment & Plan: s/p about 5 minutes of CPR and 2 doses of epinephrine, minimally to unresponsive after, now intubated. BP okay initially, monitor closely. See goals of care discussion. (2) Respiratory failure Status: Acute Assessment & Plan: Suspect possibly pulmonary edema vs mucous plugging given she has been receiving large amount as was needed for her rhabdo, and her post- intubation CXR shows white-out of left side, contacted Dr. Buchanan to eval for possible bronchoscopy. Lasix 20 mg IV given before code event when her hypoxia was worsening. IVF running at 30 mls/hr with potassium. Qualifiers: Qualified Codes: J96.01 - Acute respiratory failure with hypoxia (3) Sepsis Status: Acute Assessment & Plan: Secondary to urinary tract infection, IVF and ceftriaxone. Culture pending. 11/11 holding IVF due to hypoxic respiratory failure. Qualifiers: (4) Lactic acidosis Status: Resolved Assessment & Plan: 11/10- Suspect secondary to tissue hypoxia with rhabdo, resolved overnight with IVF. (5) Candidal intertrigo Status: Acute Assessment & Plan: 11/10- Severe, diffuse, will treat with diflucan x 7 days. (6) Morbid obesity Status: Chronic (7) Hypothermia Status: Acute Assessment & Plan: Improving, continue treating underlying conditions Qualifiers: Qualified Codes: T68.XXXA - Hypothermia, initial encounter (8) Renal insufficiency Status: Acute Assessment & Plan: Trending improved with IVF resuscitation, suspect secondary to dehydration and rhabdomyolysis 11/11 creatinine trending down, but now holding IVF due to hypoxic respiratory failure (9) UTI (urinary tract infection) Status: Acute Assessment & Plan: Culture pending, ceftriaxone started. (10) Uncontrolled diabetes mellitus Status: Chronic Assessment & Plan: Reviewed clinic chart, 10/10/21 A1c 11.3 Sliding scale insulin, diabetic diet when tolerating oral. Was not taking home medications for some time. Qualifiers: Qualified Codes: E11.65 - Type 2 diabetes mellitus with hyperglycemia (11) Elevated troponin Status: Acute Assessment & Plan: Cardiology consulted, appreciate recommendations. Suspect related to rhabdo rather than new cardiac event. (12) Contusion of right shoulder Status: Acute Assessment & Plan: Xray without fracture Qualifiers: Qualified Codes: S40.011A - Contusion of right shoulder, initial encounter (13) Fall from standing Status: Acute Assessment & Plan: PT when able Qualifiers: Qualified Codes: W19.XXXA - Unspecified fall, initial encounter (14) Rhabdomyolysis Status: Acute Assessment & Plan: IVF, monitor CK and creatinine Qualifiers: Qualified Codes: T79.6XXA - Traumatic ischemia of muscle, initial encounter (15) Hypertension Status: Chronic Qualifiers: Qualified Codes: I10 - Essential (primary) hypertension (16) Hyperlipidemia Status: Chronic (17) Coronary artery disease without angina pectoris Status: Chronic Assessment & Plan: History of bypass, has not been taking medications at home. Restarted aspirin, cannot tolerate beta ran and ACEI due to current BP. Qualifiers: Qualified Codes: I25.810 - Atherosclerosis of coronary artery bypass graft(s) without angina pectoris (18) DVT prophylaxis Status: Acute Assessment & Plan: Enoxaparin (19) Goals of care, counseling/discussion Status: Acute Assessment & Plan: 11/11 Spoke with brother Alan this morning after code event, pt was unable to have in depth conversation yesterday and he reports they haven't really talked about her wishes. He does feel confident that if she has hypoxic brain insult, she would not want to be on the ventilator for a prolonged period. He also notes that she has been failing at home for some time, she does not drive, she is not taking her medications and has been having more and more difficulty getting around but has resisted moving in with someone else, although after the last time she fell, her family told her if she had another fall they felt she could not go back to her home alone. Discussed that it is difficult to know yet whether she has sustained further halfway consequences after her arrest, and will monitor closely over next 24-48 hours with the recognition that family does feel she would prefer comfort over aggressive care if not thought to be likely to be beneficial. Plan: Supportive care Assess neurologic function 11/13/21: DNR Poor prognosis 11/14/21: Monitor closely DNR Poor prognosis VANDANA KNOWLES DO November 14, 2021 07:20
[2021-11-14] MEDS: aCETylcysteine 20% (MUCOMYST) 4 ML SOLN VIAL INH SCH ×2 (07:22→14:38)
--- NOTE | 2021-11-14 07:34 | Diagnostic Imaging Report ---
Indication: Ventilator support. Time of Exam: 4:47 AM Comparison is made prior exam 1 day earlier. Heart is enlarged. There are changes of median sternotomy and CABG. Various support lines and catheters remain in place. There continues to be some parenchymal consolidation in the left lung base obscuring the left hemidiaphragm. This is similar to yesterday. Right lung appears to be fairly clear. No significant effusion or pneumothorax is detected. IMPRESSION: Persistent left basilar consolidation, similar to exam one day earlier. Dictated by: Dictated on workstation # [id number]
--- NOTE | 2021-11-14 08:01 | Physical Therapy Progress Note ---
Therapy Progress Note Patient is currently intubated and sedated. Will follow and start physical therapy when appropriate and patient is able to participate. VISHNU MCGILL PT November 14, 2021 08:01
[2021-11-14] MEDS: PANTOPRAZOLE 40 MG (PROTONIX) VIAL IV SCH (08:09)
[2021-11-14] MEDS: FLUCONAZOLE 100 MG/50 ML 50 ML IV SCH (08:10)
[2021-11-14] MEDS: MICONAZOLE 2% POWDER (DESENEX AF) 90 GM TOP SCH ×2 (08:10→20:54)
[2021-11-14] MEDS: ASPIRIN E.C. 81 MG (ECOTRIN) TAB PO SCH (08:10)
--- NOTE | 2021-11-14 09:01 | Occ Therapy Progress Note ---
Therapy Progress Note Pt. continues on ventilator support. Will hold Occupational therapy at this time. [id number] KATHRYN MELCHOR OT November 14, 2021 09:01
--- NOTE | 2021-11-14 09:21 | Tele-ICU Progress Note ---
Subjective Date Seen by a Provider: November 14, 2021 Time Seen by a Provider: 08:15 Subjective/Events-last exam This virtual visit was conducted using real time audio/video. Thank you for asking us to see this patient for respiratory insufficiency due to in unit arrest 11/11. Bronch later same day due to L lung field white out. Adm. following fall, down 36 hours with rhabdomyolysis and renal insufficiency. Intubated during code. PE: sedated on vent. VSS. O2 sat 94% on AC 10/400/28%/+5. HEENT: No obvious masses, adenopathy or JVD. Chest: coarse sounding on auscultation. CV: RRR S1 S2 No murmur or added sounds. Abd: Non-tender. Bowel sounds Y. : Unremarkable. [place] Y. [employer]/psychiatric: Grossly intact. No obvious focal findings. Extremities: 1+ edema. Capillary refill < 3 seconds. Skin: unremarkable. Results: Elevated WCC 17.1, BUN 44, Creat. 3.42, BG 417, CPK 1134. Decreased Hb10.1. B.27/43/75 0n 25%. CXR: L basilar infilt. Available chart/ vitals / labs / images reviewed. Video assessment done using teleICU camera, rest of exam as per RN. A/P: Respiratory insufficiency: Continue present management with vent, albut., NAC, prop. Monitor for increasing oxygenation needs. Critical Care: critically ill patient. Cont. abx,antifungal, PPI, PRN pressors, ASA, SSI, levemir. Discussed with RN Colette. Asked RN to reach out to eICU if any questions or concerns later. Time spent with patient/coordination of care with other health professionals (mins): 24. Sepsis Event Evaluation Height, Weight, BMI Height: 5'2" Weight: 226lbs. oz. 102.658617up; 40.69 BMI Method: Focused Exam Time of Focused Exam: 00:30 Exam Exam Patient acknowledged, consented, and participated in this virtual visit which was conducted using real time audio/video Vital Signs Date Time Temp Pulse Resp B/P (MAP) Pulse Ox O2 Delivery O2 Flow Rate FiO2 11/14/21 08:55 97 Mechanical Ventilator 25 11/14/21 08:00 36.2 11/14/21 07:22 76 20 100 25 11/14/21 06:00 82 22 150/76 98 Mechanical Ventilator 28.00 11/14/21 05:00 82 22 156/71 94 Mechanical Ventilator 28.00 11/14/21 04:00 96 Mechanical Ventilator 25 11/14/21 04:00 76 22 143/69 93 Mechanical Ventilator 28.00 11/14/21 03:59 36.2 11/14/21 03:00 77 22 137/68 97 Mechanical Ventilator 28.00 11/14/21 02:25 77 20 96 28 11/14/21 02:00 74 22 137/69 97 Mechanical Ventilator 28.00 11/14/21 01:00 77 11/14/21 01:00 77 22 142/68 97 Mechanical Ventilator 28.00 11/14/21 00:00 98 Mechanical Ventilator 27 11/14/21 00:00 78 22 146/71 97 Mechanical Ventilator 28.00 11/13/21 23:57 36.3 11/13/21 23:00 76 22 133/66 95 Mechanical Ventilator 28.00 11/13/21 22:53 37.0 11/13/21 22:13 79 20 98 28 11/13/21 22:00 77 22 141/67 99 Mechanical Ventilator 28.00 11/13/21 21:00 81 22 137/64 91 Mechanical Ventilator 28.00 11/13/21 20:00 79 22 138/64 95 Mechanical Ventilator 28.00 11/13/21 20:00 36.1 11/13/21 19:54 98 Mechanical Ventilator 28 11/13/21 19:52 84 22 147/69 98 Mechanical Ventilator 28.00 11/13/21 19:00 81 24 134/62 94 Mechanical Ventilator 28.00 11/13/21 19:00 81 11/13/21 18:45 80 16 96 28 11/13/21 18:00 80 19 123/59 93 Mechanical Ventilator 28.00 11/13/21 17:00 82 12 132/63 95 Mechanical Ventilator 28.00 11/13/21 16:00 92 20 147/77 92 Mechanical Ventilator 28.00 11/13/21 16:00 97 Mechanical Ventilator 30 11/13/21 16:00 36.3 11/13/21 15:00 85 21 140/62 97 Mechanical Ventilator 28.00 11/13/21 14:28 84 19 98 28 11/13/21 14:00 87 25 128/59 97 Mechanical Ventilator 30.00 11/13/21 13:00 87 24 129/64 97 Mechanical Ventilator 30.00 11/13/21 12:51 86 11/13/21 12:00 97 Mechanical Ventilator 30 11/13/21 12:00 88 25 124/61 98 Mechanical Ventilator 30.00 11/13/21 12:00 36.7 11/13/21 11:00 93 21 130/60 97 Mechanical Ventilator 30.00 11/13/21 10:30 96 22 96 30 11/13/21 10:00 100 23 131/63 95 Mechanical Ventilator 30.00 I & O 11/14/21 07:00 Intake Total 3180 ml Output Total 1100 ml Balance 2080 ml Height & Weight Height: 5'2" Weight: 226lbs. oz. 102.817004qn; 40.69 BMI Method: General Appearance: No Apparent Distress, Chronically ill, Other (on vent, unresponsive) HEENT: PERRL/EOMI Neck: Full Range of Motion Respiratory: Lungs Clear, Normal Breath Sounds Cardiovascular: Regular Rate, Rhythm Capillary Refill: Less Than 3 Seconds Gastrointestinal: normal bowel sounds, non tender, soft Extremity: Normal Capillary Refill Neurologic/Psychiatric: Other (on vent/sedated) Skin: Normal Color Lymphatic: No Adenopathy Results Lab Laboratory Tests 11/13/21 04:26 11/14/21 04:20 Assessment/Plan Assessment/Plan See free text. Critical Care: Ventilator Management PARUL DOLL MD November 14, 2021 09:21
--- NOTE | 2021-11-14 09:47 | Progress Note ---
Subjective Date Seen by a Provider: November 14, 2021 Time Seen by a Provider: 09:40 Subjective/Events-last exam Patient seen with Dr. Buchanan. Patient off sedation. Patient resposive to some stimuli. respiratory/vent status improving however worsening renal failure. Focused Exam Time of Focused Exam: 00:30 Objective Exam Vital Signs Date Time Temp Pulse Resp B/P (MAP) Pulse Ox O2 Delivery O2 Flow Rate FiO2 11/14/21 09:00 71 18 141/69 97 Mechanical Ventilator 28.00 11/14/21 08:55 97 Mechanical Ventilator 25 11/14/21 08:00 36.2 11/14/21 08:00 70 19 136/67 97 Mechanical Ventilator 28.00 11/14/21 07:56 70 11/14/21 07:22 76 20 100 25 11/14/21 07:00 71 16 142/69 100 Mechanical Ventilator 28.00 11/14/21 06:00 82 22 150/76 98 Mechanical Ventilator 28.00 11/14/21 05:00 82 22 156/71 94 Mechanical Ventilator 28.00 11/14/21 04:00 96 Mechanical Ventilator 25 11/14/21 04:00 76 22 143/69 93 Mechanical Ventilator 28.00 11/14/21 03:59 36.2 11/14/21 03:00 77 22 137/68 97 Mechanical Ventilator 28.00 11/14/21 02:25 77 20 96 28 11/14/21 02:00 74 22 137/69 97 Mechanical Ventilator 28.00 11/14/21 01:00 77 11/14/21 01:00 77 22 142/68 97 Mechanical Ventilator 28.00 11/14/21 00:00 98 Mechanical Ventilator 27 11/14/21 00:00 78 22 146/71 97 Mechanical Ventilator 28.00 11/13/21 23:57 36.3 11/13/21 23:00 76 22 133/66 95 Mechanical Ventilator 28.00 11/13/21 22:53 37.0 11/13/21 22:13 79 20 98 28 11/13/21 22:00 77 22 141/67 99 Mechanical Ventilator 28.00 11/13/21 21:00 81 22 137/64 91 Mechanical Ventilator 28.00 11/13/21 20:00 79 22 138/64 95 Mechanical Ventilator 28.00 11/13/21 20:00 36.1 11/13/21 19:54 98 Mechanical Ventilator 28 11/13/21 19:52 84 22 147/69 98 Mechanical Ventilator 28.00 11/13/21 19:00 81 24 134/62 94 Mechanical Ventilator 28.00 11/13/21 19:00 81 11/13/21 18:45 80 16 96 28 11/13/21 18:00 80 19 123/59 93 Mechanical Ventilator 28.00 11/13/21 17:00 82 12 132/63 95 Mechanical Ventilator 28.00 11/13/21 16:00 92 20 147/77 92 Mechanical Ventilator 28.00 11/13/21 16:00 97 Mechanical Ventilator 30 11/13/21 16:00 36.3 11/13/21 15:00 85 21 140/62 97 Mechanical Ventilator 28.00 11/13/21 14:28 84 19 98 28 11/13/21 14:00 87 25 128/59 97 Mechanical Ventilator 30.00 11/13/21 13:00 87 24 129/64 97 Mechanical Ventilator 30.00 11/13/21 12:51 86 11/13/21 12:00 97 Mechanical Ventilator 30 11/13/21 12:00 88 25 124/61 98 Mechanical Ventilator 30.00 11/13/21 12:00 36.7 11/13/21 11:00 93 21 130/60 97 Mechanical Ventilator 30.00 11/13/21 10:30 96 22 96 30 11/13/21 10:00 100 23 131/63 95 Mechanical Ventilator 30.00 I & O 11/14/21 07:00 Intake Total 3180 ml Output Total 1100 ml Balance 2080 ml Capillary Refill : Less Than 3 Seconds General Appearance: No Apparent Distress, Obese Respiratory: Decreased Breath Sounds, Rhonci Cardiovascular: Regular Rate, Rhythm, No Murmur Gastrointestinal: normal bowel sounds, soft Extremity: Normal Capillary Refill, Swelling Neurologic/Psychiatric: Other (On vent) Skin: Normal Color, Warm/Dry Results Lab Laboratory Tests 11/13/21 11:19: Glucometer 325H 11/13/21 17:17: Glucometer 379H 11/13/21 23:40: Glucometer 349H 11/14/21 04:20: White Blood Count 17.7H, Red Blood Count 4.01, Hemoglobin 10.1L, Hematocrit 34L, Mean Corpuscular Volume 85, Mean Corpuscular Hemoglobin 25, Mean Corpuscular Hemoglobin Concent 30L, Red Cell Distribution Width 15.4H, Platelet Count 178, Mean Platelet Volume 12.2, Immature Granulocyte % (Auto) 2, Neutrophils (%) (Auto) 84H, Lymphocytes (%) (Auto) 7L, Monocytes (%) (Auto) 6, Eosinophils (%) (Auto) 1, Basophils (%) (Auto) 0, Neutrophils # (Auto) 14.8H, Lymphocytes # (Auto) 1.2, Monocytes # (Auto) 1.1H, Eosinophils # (Auto) 0.2, Basophils # (Auto) 0.0, Immature Granulocyte # (Auto) 0.3H, Blood Gas Puncture Site RIGHT RADIAL, Blood Gas Patient Temperature 36.1, Arterial Blood pH 7.27*L, Arterial Blood Partial Pressure CO2 43, Arterial Blood Partial Pressure O2 65L, Arterial Blood HCO3 19L, Arterial Blood Total CO2 20.8L, Arterial Blood Oxygen Saturation 94, Arterial Blood Base Excess -6.5L, Vernon Test YES-POS, Blood Gas Ventilator Setting YES, Blood Gas Inspired Oxygen 25%, Sodium Level 142, Potassium Level 4.2, Chloride Level 110H, Carbon Dioxide Level 17L, Anion Gap 15H, Blood Urea Nitrogen 44H, Creatinine 3.42#H, Estimat Glomerular Filtration Rate 15, BUN/Creatinine Ratio 13, Glucose Level 417*H, Calcium Level 8.3L, Corrected Calcium 9.7, Phosphorus Level 3.6, Magnesium Level 2.3, Total Bilirubin 0.8, Aspartate Amino Transf (AST/SGOT) 106H, Alanine Aminotransferase (ALT/SGPT) 93H, Alkaline Phosphatase 244H, Total Creatine Kinase 1134H, Creatine Kinase MB 2.6, Myoglobin 1565.1H, Troponin I 3.721*H, Total Protein 6.3L, Albumin 2.2L 11/14/21 05:17: Glucometer 378H Microbiology 11/11/21 Mycobacterial Culture - Preliminary, Resulted 11/10/21 Blood Culture - Preliminary, Resulted No growth 11/09/21 Urine Culture - Final, Complete 3 or more isolates Assessment/Plan Assessment/Plan Assess & Plan/Chief Complaint A 61 year old female who is s/p fall,loss of consciousness, obtundation and dehydration, respiratory and renal failure. cont vent ween. renal fxn worsening. fluids and monitory vs. transfer and CVVHD? cont abx and antifungal. MOISES CLAIRE FLASH OVEN OPERATOR November 14, 2021 09:47
--- NOTE | 2021-11-14 10:00 | Cardiology Progress Note ---
Progress Note-Cardiology Events since last exam Date Seen by Provider: November 14, 2021 Time Seen by Provider: 09:55 Events since last exam I am following her due to an elevated troponin that was then followed by car diopulmonary arrest. She remains in the intensive care unit intubated and sedated. When sedation is weaned, she does seem to open her eyes. This is a slight improvement from 11/13. One of her sons is at the bedside. He is waiting for his brother to arrive from out of town. I am not able to obtain any history from the patient due to the sedation. I did speak with her nurse. Certain portions of this document may have been dictated utilizing voice recognition technology. Inherent to this technology, typographical and grammatical errors may exist. As much as I am diligent to identify and correct these mistakes, some errors may remain in the document. Vitals Last set of Vitals Signs Vital Signs 11/14/21 11/14/21 11/14/21 08:00 08:55 09:00 Temp 36.2 Pulse 71 Resp 18 B/P (MAP) 141/69 Pulse Ox 97 O2 Delivery Mechanical Ventilator O2 Flow Rate 28.00 FiO2 25 Labs Labs Laboratory Tests 11/14/21 04:20 Exam Vital Signs Vital Signs Date Time Temp Pulse Resp B/P (MAP) Pulse Ox O2 Delivery O2 Flow Rate FiO2 11/14/21 09:00 71 18 141/69 97 Mechanical Ventilator 28.00 11/14/21 08:55 25 11/14/21 08:00 36.2 Physical Exam General: Intubated and sedated. Well nourished and appears stated age. She is morbidly obese. Eye: Conjunctivae are clear. There are no xanthelasma. HENT: Normocephalic. Atraumatic. Carotid pulsations 2/2 without bruits. Neck: Jugular venous pressure does not appear elevated. No thyromegaly appreciated. Respiratory: Symmetrical expansion bilaterally. Coarse breath sounds due to the ventilator. Cardiovascular: Normal rate. Regular rhythm. No murmur. No gallop. Point of maximal impulse is not appear displaced. Good pulses equal in all extremities. No edema. Gastrointestinal: Soft. Normal bowel sounds. Skin: Skin turgor is normal. There is no pallor. Musculoskeletal: No obvious deformities. Neurologic: Intubated and sedated. She intermittently opens her eyes to voice or light touch but does not really seem to be following any commands. Psychiatric: Not obtainable due to clinical status. Labs Laboratory Tests Test 11/13/21 11:19 11/13/21 17:17 11/13/21 23:40 11/14/21 04:20 Range/Units Glucometer 325 H 379 H 349 H 70-110 MG/DL White Blood Count 17.7 H 4.3-11.0 10^3/uL Red Blood Count 4.01 3.80-5.11 10^6/uL Hemoglobin 10.1 L 11.5-16.0 g/dL Hematocrit 34 L 35-52 % Mean Corpuscular Volume 85 80-99 fL Mean Corpuscular Hemoglobin 25 25-34 pg Mean Corpuscular Hemoglobin Concent 30 L 32-36 g/dL Red Cell Distribution Width 15.4 H 10.0-14.5 % Platelet Count 178 130-400 10^3/uL Mean Platelet Volume 12.2 9.0-12.2 fL Immature Granulocyte % (Auto) 2 % Neutrophils (%) (Auto) 84 H 42-75 % Lymphocytes (%) (Auto) 7 L 12-44 % Monocytes (%) (Auto) 6 0-12 % Eosinophils (%) (Auto) 1 0-10 % Basophils (%) (Auto) 0 0-10 % Neutrophils # (Auto) 14.8 H 1.8-7.8 10^3/uL Lymphocytes # (Auto) 1.2 1.0-4.0 10^3/uL Monocytes # (Auto) 1.1 H 0.0-1.0 10^3/uL Eosinophils # (Auto) 0.2 0.0-0.3 10^3/uL Basophils # (Auto) 0.0 0.0-0.1 10^3/uL Immature Granulocyte # (Auto) 0.3 H 0.0-0.1 10^3/uL Blood Gas Puncture Site RIGHT RADIAL Blood Gas Patient Temperature 36.1 Arterial Blood pH 7.27 *L 7.37-7.43 Arterial Blood Partial Pressure CO2 43 35-45 MMHG Arterial Blood Partial Pressure O2 65 L 79-93 MMHG Arterial Blood HCO3 19 L 23-27 MMOL/L Arterial Blood Total CO2 20.8 L 21.0-31.0 MMOL/L Arterial Blood Oxygen Saturation 94 94-100 % Arterial Blood Base Excess -6.5 L -2.5-2.5 MMOL/L Vernon Test YES-POS Blood Gas Ventilator Setting YES Blood Gas Inspired Oxygen 25% Sodium Level 142 135-145 MMOL/L Potassium Level 4.2 3.6-5.0 MMOL/L Chloride Level 110 H 98-107 MMOL/L Carbon Dioxide Level 17 L 21-32 MMOL/L Anion Gap 15 H 5-14 MMOL/L Blood Urea Nitrogen 44 H 7-18 MG/DL Creatinine 3.42 #H 0.60-1.30 MG/DL Estimat Glomerular Filtration Rate 15 BUN/Creatinine Ratio 13 Glucose Level 417 *H 70-105 MG/DL Calcium Level 8.3 L 8.5-10.1 MG/DL Corrected Calcium 9.7 8.5-10.1 MG/DL Phosphorus Level 3.6 2.3-4.7 MG/DL Magnesium Level 2.3 1.6-2.4 MG/DL Total Bilirubin 0.8 0.1-1.0 MG/DL Aspartate Amino Transf (AST/SGOT) 106 H 5-34 U/L Alanine Aminotransferase (ALT/SGPT) 93 H 0-55 U/L Alkaline Phosphatase 244 H 40-136 U/L Total Creatine Kinase 1134 H 29-168 U/L Creatine Kinase MB 2.6 <6.6 NG/ML Myoglobin 1565.1 H 10.0-92.0 NG/ML Troponin I 3.721 *H <0.028 NG/ML Total Protein 6.3 L 6.4-8.2 GM/DL Albumin 2.2 L 3.2-4.5 GM/DL Test 11/14/21 05:17 Range/Units Glucometer 378 H 70-110 MG/DL Diagnosis/Problems Diagnosis/Problems (1) Cardiopulmonary arrest with successful resuscitation Status: Acute Assessment & Plan: Her postintubation/postcode chest x-ray showed complete whiteout of the left lung. She underwent a bronchoscopy and had significant mucous plugging removed. Her chest x-ray and pulmonary status had improved. She had been unresponsive but today is minimally responsive. If she does not make any improvement in her neurologic status over the next 24 to 48 hours, then she may need to be made comfort care. Her son is here today and waiting for his brother to arrive and they will discuss goals of care at that time. (2) Elevated troponin Status: Acute Assessment & Plan: I suspect this is due to rhabdomyolysis and does not represent an acute coronary syndrome. We will need to wait and see how she does following this cardiopulmonary arrest incident before we can consider any additional cardiac testing. I have started her on low strength aspirin. She is not currently a good candidate for statin medication due to persistently elevated transaminase levels. (3) Coronary artery disease without angina pectoris Status: Chronic Assessment & Plan: Despite her fall and elevated troponin, she was not rep orting any chest discomfort prior to the cardiopulmonary arrest in the hospital. She had borderline ischemic changes on her electrocardiogram. As above, I suspect the troponin elevation is due to rhabdomyolysis. We will continue aspirin as above. If she makes meaningful neurologic recovery, we could consider an ischemic evaluation. However, her prognosis appears poor at this time. (4) Shock Assessment & Plan: She did develop some shock following the cardiopulmonary arrest and required some norepinephrine infusion for less than 24 hours. Exact etiology of the shock is unclear. We will continue to monitor her blood pressures closely. (5) Primary hypertension Assessment & Plan: She has a reported history of hypertension but may not have been taking any medication for this at home. She did also require norepinephrine following the cardiac arrest. In light of the cardiopulmonary arrest, I will hold off on adding any antihypertensive agents at this time unless she becomes more hypertensive. (6) Mixed hyperlipidemia Assessment & Plan: Her cholesterol level was markedly elevated at the time of admission. Statin medication is on hold due to markedly abnormal liver function tests. (7) Acute kidney injury Assessment & Plan: Her renal function continues to worsen. I suspect this is multifactorial due to the rhabdomyolysis and then cardiac arrest with a brief period of shock. I do not think she would be a good candidate for dialysis due to multiple comorbid conditions. (8) Rhabdomyolysis Status: Acute Assessment & Plan: She had been receiving intravenous fluids under the direction of the hospitalist. (9) Morbid obesity Status: Chronic Assessment & Plan: She needs to work on weight loss assuming she survives this critical illness. Problem Qualifiers (1) Coronary artery disease without angina pectoris: Coronary Disease-Associated Artery/Lesion type: bypass graft [place] vs. transplanted heart: [place] heart Qualified Codes: I25.810 - Atherosclerosis of coronary artery bypass graft(s) without angina pectoris (2) Rhabdomyolysis: Rhabdomyolysis type: traumatic Encounter type: initial encounter Qualified Codes: T79.6XXA - Traumatic ischemia of muscle, initial encounter ROGER TUCKER JR, MD November 14, 2021 10:00
[2021-11-14] MEDS: fentaNYL DRIP PRE-MIX 250 ML IV SCH (10:32)
[2021-11-14] MEDS ORDERED: RT-ALBUTEROL SULF 2.5 MG/3 ML PRE-MIX VIAL INH PRN (16:00)
[2021-11-14] MEDS: ENOXAPARIN INJECTION 30 MG/0.3 ML SYR SC SCH (20:54)
[2021-11-14] MEDS ORDERED: VANCOMYCIN 750 MG/NS 250 ML IVPB IV SCH ×2 (21:00)
[2021-11-15] MEDS: inSUlin ASPART (NovoLOG) 1 UNIT/0.01 ML (CHARGE PER UNIT) SC SCH ×5 (00:08→23:52)
[2021-11-15] MEDS: PIPERACILLIN SODIUM/TAZOBACTAM 4.5 GM in NS (IVPB) 100 ML IV SCH ×4 (00:08→23:53)
[2021-11-15 02:46] VITALS: BP 138/66
[2021-11-15] MEDS: RT-ALBUTEROL SULF 2.5 MG/3 ML PRE-MIX VIAL INH SCH ×6 (02:46→22:38)
[2021-11-15 05:09] LABS: ABG BASE EXCESS -6.2 MMOL/L (-2.5-2.5); ABG OXYGEN SATURATION 97 % (94-100); ABG PCO2 41 MMHG (35-45); ABG PO2 82 MMHG (79-93); ABG TCO2 20.5 MMOL/L (21.0-31.0)
[2021-11-15 05:10] LABS: BASOPHILS # (AUTO) 0.1 10^3/uL (0.0-0.1); BASOPHILS % (AUTO) 0 % (0-10); EOSINOPHILS # (AUTO) 0.3 10^3/uL (0.0-0.3); EOSINOPHILS % (AUTO) 2 % (0-10); HEMATOCRIT 32 % (35-52); HEMOGLOBIN 9.7 g/dL (11.5-16.0); LYMPHOCYTES # (AUTO) 1.6 10^3/uL (1.0-4.0); LYMPHOCYTES % (AUTO) 12 % (12-44); MEAN CORPUSCULAR HEMOGLOBIN 26 pg (25-34); MEAN CORPUSCULAR HGB CONC 30 g/dL (32-36); MEAN CORPUSCULAR VOLUME 85 fL (80-99); MEAN PLATELET VOLUME 12.4 fL (9.0-12.2); MONOCYTES # (AUTO) 1.1 10^3/uL (0.0-1.0); MONOCYTES % (AUTO) 8 % (0-12); NEUTROPHILS # (AUTO) 10.5 10^3/uL (1.8-7.8); NEUTROPHILS % (AUTO) 76 % (42-75); PLATELET COUNT 199 10^3/uL (130-400); WHITE BLOOD COUNT 13.8 10^3/uL (4.3-11.0)
[2021-11-15 05:12] LABS: ABG PH 7.29 (7.37-7.43); ALLENS TEST YES-POS; INSPIRED O2 25%; PATIENT TEMP 36.7; VENTILATOR YES
[2021-11-15 05:23] LABS: ALBUMIN 2.2 GM/DL (3.2-4.5); POTASSIUM 4.5 MMOL/L (3.6-5.0)
[2021-11-15 05:24] LABS: CALCIUM 8.4 MG/DL (8.5-10.1)
[2021-11-15 05:26] LABS: TOTAL PROTEIN 6.2 GM/DL (6.4-8.2)
[2021-11-15 05:27] LABS: BILIRUBIN,TOTAL 0.5 MG/DL (0.1-1.0)
[2021-11-15 05:29] LABS: CREATININE SERUM 3.54 MG/DL (0.60-1.30); PHOSPHORUS 3.7 MG/DL (2.3-4.7)
[2021-11-15 05:32] LABS: MAGNESIUM 2.3 MG/DL (1.6-2.4)
[2021-11-15 05:42] LABS: CREATINE KINASE MB 1.8 NG/ML (<6.6)
--- NOTE | 2021-11-15 06:18 | Progress Note - Hospitalist ---
Subjective HPI/CC On Admission Date Seen by Provider: November 15, 2021 Time Seen by Provider: 10:00 Subjective/Events-last exam Pt is the same Creatinine is 3.5 Pt really needs terminal extubation and comfort care Brother still can't make that decision Focused Exam Time of Focused Exam: 00:30 Objective Exam Vital Signs Vital Signs Date Time Temp Pulse Resp B/P (MAP) Pulse Ox O2 Delivery O2 Flow Rate FiO2 11/16/21 04:00 35.9 Mechanical Ventilator 35.00 11/16/21 04:00 95 35 11/16/21 02:42 58 20 Capillary Refill : Less Than 3 Seconds General Appearance: No Apparent Distress, WD/WN, Chronically ill, Other (sedated intubated) Respiratory: Decreased Breath Sounds Cardiovascular: Regular Rate, Rhythm Results/Procedures Lab Laboratory Tests 11/16/21 03:47 Patient resulted labs reviewed. Assessment/Plan Assessment and Plan Assess & Plan/Chief Complaint Assessment/Plan (1) Cardiopulmonary arrest with successful resuscitation Status: Acute Assessment & Plan: s/p about 5 minutes of CPR and 2 doses of epinephrine, minimally to unresponsive after, now intubated. BP okay initially, monitor closely. See goals of care discussion. (2) Respiratory failure Status: Acute Assessment & Plan: Suspect possibly pulmonary edema vs mucous plugging given she has been receiving large amount as was needed for her rhabdo, and her post- intubation CXR shows white-out of left side, contacted Dr. Chanel del rosario for possible bronchoscopy. Lasix 20 mg IV given before code event when her hypoxia was worsening. IVF running at 30 mls/hr with potassium. Qualifiers: Qualified Codes: J96.01 - Acute respiratory failure with hypoxia (3) Sepsis Status: Acute Assessment & Plan: Secondary to urinary tract infection, IVF and ceftriaxone. Culture pending. 11/11 holding IVF due to hypoxic respiratory failure. Qualifiers: (4) Lactic acidosis Status: Resolved Assessment & Plan: 11/10- Suspect secondary to tissue hypoxia with rhabdo, resolved overnight with IVF. (5) Candidal intertrigo Status: Acute Assessment & Plan: 11/10- Severe, diffuse, will treat with diflucan x 7 days. (6) Morbid obesity Status: Chronic (7) Hypothermia Status: Acute Assessment & Plan: Improving, continue treating underlying conditions Qualifiers: Qualified Codes: T68.XXXA - Hypothermia, initial encounter (8) Renal insufficiency Status: Acute Assessment & Plan: Trending improved with IVF resuscitation, suspect secondary to dehydration and rhabdomyolysis 11/11 creatinine trending down, but now holding IVF due to hypoxic respiratory failure (9) UTI (urinary tract infection) Status: Acute Assessment & Plan: Culture pending, ceftriaxone started. (10) Uncontrolled diabetes mellitus Status: Chronic Assessment & Plan: Reviewed clinic chart, 10/10/21 A1c 11.3 Sliding scale insulin, diabetic diet when tolerating oral. Was not taking home medications for some time. Qualifiers: Qualified Codes: E11.65 - Type 2 diabetes mellitus with hyperglycemia (11) Elevated troponin Status: Acute Assessment & Plan: Cardiology consulted, appreciate recommendations. Suspect related to rhabdo rather than new cardiac event. (12) Contusion of right shoulder Status: Acute Assessment & Plan: Xray without fracture Qualifiers: Qualified Codes: S40.011A - Contusion of right shoulder, initial encounter (13) Fall from standing Status: Acute Assessment & Plan: PT when able Qualifiers: Qualified Codes: W19.XXXA - Unspecified fall, initial encounter (14) Rhabdomyolysis Status: Acute Assessment & Plan: IVF, monitor CK and creatinine Qualifiers: Qualified Codes: T79.6XXA - Traumatic ischemia of muscle, initial encounter (15) Hypertension Status: Chronic Qualifiers: Qualified Codes: I10 - Essential (primary) hypertension (16) Hyperlipidemia Status: Chronic (17) Coronary artery disease without angina pectoris Status: Chronic Assessment & Plan: History of bypass, has not been taking medications at home. Restarted aspirin, cannot tolerate beta ran and ACEI due to current BP. Qualifiers: Qualified Codes: I25.810 - Atherosclerosis of coronary artery bypass graft(s) without angina pectoris (18) DVT prophylaxis Status: Acute Assessment & Plan: Enoxaparin (19) Goals of care, counseling/discussion Status: Acute Assessment & Plan: 11/11 Spoke with brother Alan this morning after code event, pt was unable to have in depth conversation yesterday and he reports they haven't really talked about her wishes. He does feel confident that if she has hypoxic brain insult, she would not want to be on the ventilator for a prolonged period. He also notes that she has been failing at home for some time, she does not drive, she is not taking her medications and has been having more and more difficulty getting around but has resisted moving in with someone else, although after the last time she fell, her family told her if she had another fall they felt she could not go back to her home alone. Discussed that it is difficult to know yet whether she has sustained further usp consequences after her arrest, and will monitor closely over next 24-48 hours with the recognition that family does feel she would prefer comfort over aggressive care if not thought to be likely to be beneficial. Plan: Supportive care Assess neurologic function 11/13/21: DNR Poor prognosis 11/14/21: Monitor closely DNR Poor prognosis 11/15/21: Supportive care Prognosis poor Critical Care Ventilator Management VANDANA KNOWLES DO November 15, 2021 06:17
[2021-11-15] MEDS: NS IV 1000 ML 1,000 ML IV SCH ×2 (06:42→17:26)
--- NOTE | 2021-11-15 06:52 | Occ Therapy Progress Note ---
Therapy Progress Note Pt. continues on ventilator support. Will hold Occupational Therapy at this time. SRAVAN GALVEZ November 15, 2021 06:52
[2021-11-15 07:14] VITALS: BP 151/71
--- NOTE | 2021-11-15 07:23 | Physical Therapy Progress Note ---
Therapy Progress Note Patient s/p code blue and is currently intubated. PT will monitor patient status and initiate treatment when patient is medically stable and able to actively participate with skilled PT. ALFONSO CHEN PT November 15, 2021 07:23
[2021-11-15] MEDS: NOREPINEPHRINE 8 MG/250 ML 250 ML IV SCH ×2 (07:55→20:02)
[2021-11-15] MEDS: fentaNYL DRIP PRE-MIX 250 ML IV SCH (07:57)
--- NOTE | 2021-11-15 07:57 | Diagnostic Imaging Report ---
INDICATION: 61-year-old female on a ventilator followup. COMPARISONS: 11/14/2021 FINDINGS: Single portable film of the chest shows the cardiac contour to be enlarged. Left lower lobe consolidation persists. There may be a hiatal hernia. Diffuse 5 lobe alveolar infiltrates are also noted. Overall, this pattern is similar to the previous study. Sternal wires are stable. ET tube tip overlies the trachea just above the level of the clavicles. There is a right IJ central line and NG tube. IMPRESSION: 1. Cardiomegaly with mild central venous congestion with scattered 5 lobe alveolar infiltrates with more confluent consolidations in the left lower lobe. Overall, this pattern is similar to the previous study. 2. Stable support lines. Dictated by: Dictated on workstation # [id number]
[2021-11-15] MEDS: FLUCONAZOLE 100 MG/50 ML 50 ML IV SCH (08:28)
[2021-11-15] MEDS: PANTOPRAZOLE 40 MG (PROTONIX) VIAL IV SCH (08:28)
[2021-11-15] MEDS: ASPIRIN E.C. 81 MG (ECOTRIN) TAB PO SCH (08:28)
[2021-11-15] MEDS: MICONAZOLE 2% POWDER (DESENEX AF) 90 GM TOP SCH ×2 (08:28→20:04)
[2021-11-15 09:27] VITALS: BP 148/69
--- NOTE | 2021-11-15 09:48 | Cardiology Progress Note ---
Progress Note-Cardiology Events since last exam Date Seen by Provider: November 15, 2021 Time Seen by Provider: 09:46 Events since last exam I am following her due to cardiac arrest. She remains in the intensive care unit intubated. She has not been on any sedation. She has been moving all 4 extremities and trying to communicate with the staff at time. However, when they have tried to do weaning trials from the ventilator, she cannot follow commands well enough to participate. When I saw the patient, she appeared to be sleeping and would not open her eyes. Certain portions of this document may have been dictated utilizing voice recognition technology. Inherent to this technology, typographical and gra mmatical errors may exist. As much as I am diligent to identify and correct these mistakes, some errors may remain in the document. Vitals Last set of Vitals Signs Vital Signs 11/15/21 11/15/21 11/15/21 11/15/21 04:00 14:44 15:00 15:08 Temp 36.4 Pulse 69 Resp 15 B/P (MAP) 105/51 Pulse Ox 90 O2 Delivery Mechanical Ventilator O2 Flow Rate 35.00 FiO2 25 Labs Labs Laboratory Tests 11/15/21 04:45 Exam Vital Signs Vital Signs Date Time Temp Pulse Resp B/P (MAP) Pulse Ox O2 Delivery O2 Flow Rate FiO2 11/15/21 15:08 15 90 Mechanical Ventilator 35.00 11/15/21 15:00 69 105/51 11/15/21 14:44 25 11/15/21 04:00 36.4 Physical Exam General: Intubated. Well nourished and appears stated age. She is morbidly obese. Eye: Conjunctivae are clear. There are no xanthelasma. HENT: Normocephalic. Atraumatic. Carotid pulsations 2/2 without bruits. Neck: Jugular venous pressure does not appear elevated. No thyromegaly appreciated. Respiratory: Symmetrical expansion bilaterally. Coarse breath sounds due to the ventilator. Cardiovascular: Normal rate. Regular rhythm. Distant S1/S2. No murmur. No gallop. Point of maximal impulse is not appear displaced. Good pulses equal in all extremities. No edema. Gastrointestinal: Soft. Normal bowel sounds. Skin: Skin turgor is normal. There is no pallor. Musculoskeletal: No obvious deformities. Neurologic: Intubated. Not arousable when I saw her. Psychiatric: Not obtainable due to clinical status. Labs Laboratory Tests Test 11/14/21 17:11 11/14/21 23:46 11/15/21 04:45 11/15/21 04:55 Range/Units Glucometer 292 H 267 H 70-110 MG/DL White Blood Count 13.8 H 4.3-11.0 10^3/uL Red Blood Count 3.79 L 3.80-5.11 10^6/uL Hemoglobin 9.7 L 11.5-16.0 g/dL Hematocrit 32 L 35-52 % Mean Corpuscular Volume 85 80-99 fL Mean Corpuscular Hemoglobin 26 25-34 pg Mean Corpuscular Hemoglobin Concent 30 L 32-36 g/dL Red Cell Distribution Width 15.7 H 10.0-14.5 % Platelet Count 199 130-400 10^3/uL Mean Platelet Volume 12.4 H 9.0-12.2 fL Immature Granulocyte % (Auto) 2 % Neutrophils (%) (Auto) 76 H 42-75 % Lymphocytes (%) (Auto) 12 12-44 % Monocytes (%) (Auto) 8 0-12 % Eosinophils (%) (Auto) 2 0-10 % Basophils (%) (Auto) 0 0-10 % Neutrophils # (Auto) 10.5 H 1.8-7.8 10^3/uL Lymphocytes # (Auto) 1.6 1.0-4.0 10^3/uL Monocytes # (Auto) 1.1 H 0.0-1.0 10^3/uL Eosinophils # (Auto) 0.3 0.0-0.3 10^3/uL Basophils # (Auto) 0.1 0.0-0.1 10^3/uL Immature Granulocyte # (Auto) 0.2 H 0.0-0.1 10^3/uL Sodium Level 144 135-145 MMOL/L Potassium Level 4.5 3.6-5.0 MMOL/L Chloride Level 113 H 98-107 MMOL/L Carbon Dioxide Level 16 L 21-32 MMOL/L Anion Gap 15 H 5-14 MMOL/L Blood Urea Nitrogen 44 H 7-18 MG/DL Creatinine 3.54 H 0.60-1.30 MG/DL Estimat Glomerular Filtration Rate 14 BUN/Creatinine Ratio 12 Glucose Level 275 H 70-105 MG/DL Calcium Level 8.4 L 8.5-10.1 MG/DL Corrected Calcium 9.8 8.5-10.1 MG/DL Phosphorus Level 3.7 2.3-4.7 MG/DL Magnesium Level 2.3 1.6-2.4 MG/DL Total Bilirubin 0.5 0.1-1.0 MG/DL Aspartate Amino Transf (AST/SGOT) 59 H 5-34 U/L Alanine Aminotransferase (ALT/SGPT) 75 H 0-55 U/L Alkaline Phosphatase 223 H 40-136 U/L Total Creatine Kinase 431 H 29-168 U/L Creatine Kinase MB 1.8 <6.6 NG/ML Myoglobin 1054.0 H 10.0-92.0 NG/ML Troponin I 2.360 *H <0.028 NG/ML Total Protein 6.2 L 6.4-8.2 GM/DL Albumin 2.2 L 3.2-4.5 GM/DL Blood Gas Puncture Site LEFT RADIAL Blood Gas Patient Temperature 36.7 Arterial Blood pH 7.29 *L 7.37-7.43 Arterial Blood Partial Pressure CO2 41 35-45 MMHG Arterial Blood Partial Pressure O2 82 79-93 MMHG Arterial Blood HCO3 19 L 23-27 MMOL/L Arterial Blood Total CO2 20.5 L 21.0-31.0 MMOL/L Arterial Blood Oxygen Saturation 97 94-100 % Arterial Blood Base Excess -6.2 L -2.5-2.5 MMOL/L Vernon Test YES-POS Blood Gas Ventilator Setting YES Blood Gas Inspired Oxygen 25% Test 11/15/21 13:00 Range/Units Glucometer 238 H 70-110 MG/DL Diagnosis/Problems Diagnosis/Problems (1) Cardiopulmonary arrest with successful resuscitation Status: Acute Assessment & Plan: I suspect this was initially a respiratory arrest due to some mucous plugging that then resulted in cardiac arrest. She now seems to be regaining some degree of neurologic activity although cannot cooperate with ventilator weaning as outlined above. (2) Elevated troponin Status: Acute Assessment & Plan: I suspect this is due to rhabdomyolysis and does not represent an acute coronary syndrome. We will need to wait and see how she does following this cardiopulmonary arrest incident before we can consider any additional cardiac testing. I have started her on low strength aspirin and beta-ran. She is not currently a good candidate for statin medication due to persistently elevated transaminase levels. (3) Coronary artery disease without angina pectoris Status: Chronic Assessment & Plan: Despite her fall and elevated troponin, she was not reporting any chest discomfort prior to the cardiopulmonary arrest in the hospital. She had borderline ischemic changes on her electrocardiogram. As above, I suspect the troponin elevation is due to rhabdomyolysis. We will continue aspirin and beta-ran as above. If she makes meaningful neurologic recovery, we could consider an ischemic evaluation. However, her prognosis appears poor at this time. (4) Primary hypertension Assessment & Plan: She has a reported history of hypertension but may not have been taking any medication for this at home. She did also require norepinephrine following the cardiac arrest. She has now had elevated blood pressures for over 48 hours. I started her on low-dose carvedilol. (5) Mixed hyperlipidemia Assessment & Plan: Her cholesterol level was markedly elevated at the time of admission. Statin medication is on hold due to markedly abnormal liver function tests. (6) Shock Assessment & Plan: She did develop some shock following the cardiopulmonary arrest and required some norepinephrine infusion for less than 24 hours. Exact etiology of the shock is unclear. This has now resolved. (7) Acute kidney injury Assessment & Plan: Her renal function continues to worsen. I suspect this is multifactorial due to the rhabdomyolysis and then cardiac arrest with a brief period of shock. I do not think she would be a good candidate for dialysis due to multiple comorbid conditions. (8) Rhabdomyolysis Status: Acute Assessment & Plan: She had been receiving intravenous fluids under the direction of the hospitalist. (9) Morbid obesity Status: Chronic Assessment & Plan: She needs to work on weight loss assuming she survives this critical illness. Problem Qualifiers (1) Coronary artery disease without angina pectoris: Coronary Disease-Associated Artery/Lesion type: bypass graft [place] vs. transplanted heart: [place] heart Qualified Codes: I25.810 - Atherosclerosis of coronary artery bypass graft(s) without angina pectoris (2) Rhabdomyolysis: Rhabdomyolysis type: traumatic Encounter type: initial encounter Qualified Codes: T79.6XXA - Traumatic ischemia of muscle, initial encounter ROGER TUCKER JR, MD November 15, 2021 09:48
[2021-11-15 14:44] VITALS: BP 127/65
--- NOTE | 2021-11-15 17:51 | Tele-ICU Progress Note ---
Subjective Date Seen by a Provider: November 15, 2021 Time Seen by a Provider: 17:51 Subjective/Events-last exam (Tele-ICU Physician , Progress Note ) Available chart/ vitals / labs / Images reviewed Video assessment done using teleICU camera Events overnight : increase d need for o2 Afebrile FiO2 - I/O = pos 3 L Drips: ns 250 Pressors: , hemodynamically stable Consultants: Hospital course: (11/10) 61yF Admit s/p unwitnessed fall @ home. Down approx 36 hours. DX: fall from standing, Uncontrolled DM, Lactic Acidosis, UTI, Hypothermia, sepsis, dehydration,RI, Candidal Inertrigo, Inability to care for self, R shoulder contusion, Morbid obesity, Elev Trop, Early Rhabdo, Non complaince (11/11) Tachypneic & hypoxic. Treated for fluid overload. Failed Bipap. Intubated. Brief cardiac arrest - due to hypoxia - 1 amp epi given , 1 round ACLS A/P Acute resp failure - faled NIPPV this am --INTUBATED 11/11 - bronchoscopy for signigicanr mucous plugging with almost full LEFT lung atelectasis -FIO@ 25 % Brief cardiac arrest - due to hypoxia - 1 amp epi given , 1 round ACLS - fully AAO prior to arrest , intubated without meds - follow mental status CAD - elv trop - as per cards - EF 10/2021 - EF 60% Rhabdo - very mild YANET - WORSENIGN despite 4L positive last 24 h PNA - s/p FOB 11/11- Cx + for pansens Staph renny - on zosyn DM II - poorly controlled Anemia - stable S/p fall on tresentation - CT cerv - no trauma -Contusion of right shoulder morbid obesity Lines : R IJ to be place 11/11 (Central Line Necessity Reviewed) [place]: 11/10 OG: + Nutrition: Analgesia: Anxiety/ delirium VTE Prophylaxis: ramiro 40 Stress Ulcer Prophylaxis: ppi Plans in collaboration with bedside consultants and IM MDs. RN to reach out if any questions or concerns A total of 32 minutes of critical care time was devoted to this patient today, required to treat and/or prevent further deterioration of critical care condition ( as above) . Sepsis Event Evaluation Height, Weight, BMI Height: 5'2" Weight: 226lbs. oz. 102.984196as; 40.69 BMI Method: Focused Exam Time of Focused Exam: 00:30 Exam Exam Patient acknowledged, consented, and participated in this virtual visit which was conducted using real time audio/video Vital Signs Date Time Temp Pulse Resp B/P (MAP) Pulse Ox O2 Delivery O2 Flow Rate FiO2 11/15/21 16:00 95 Mechanical Ventilator 35 11/15/21 16:00 36.8 11/15/21 16:00 71 19 114/56 96 Mechanical Ventilator 35.00 11/15/21 15:08 15 90 Mechanical Ventilator 35.00 11/15/21 15:00 69 20 105/51 90 Mechanical Ventilator 25.00 11/15/21 14:44 66 20 93 25 11/15/21 14:00 67 15 126/63 93 Mechanical Ventilator 25.00 11/15/21 13:00 67 19 124/64 93 Mechanical Ventilator 25.00 11/15/21 12:54 68 11/15/21 12:00 70 22 125/67 93 Mechanical Ventilator 25.00 11/15/21 12:00 95 Mechanical Ventilator 25 11/15/21 11:00 72 24 123/64 92 Mechanical Ventilator 25.00 11/15/21 10:00 78 27 140/66 92 Mechanical Ventilator 25.00 11/15/21 09:27 81 22 92 25 11/15/21 09:00 81 23 147/69 90 Mechanical Ventilator 25.00 11/15/21 08:00 95 Mechanical Ventilator 25 11/15/21 08:00 83 20 149/76 93 Mechanical Ventilator 25.00 11/15/21 07:14 82 21 93 25 11/15/21 07:00 83 11/15/21 07:00 83 21 145/72 93 Mechanical Ventilator 25.00 11/15/21 06:00 81 18 152/74 94 Mechanical Ventilator 25.00 11/15/21 05:00 80 18 138/65 93 Mechanical Ventilator 25.00 11/15/21 04:00 95 Mechanical Ventilator 25 11/15/21 04:00 82 18 138/63 93 Mechanical Ventilator 25.00 11/15/21 04:00 36.4 11/15/21 03:00 80 18 139/65 93 Mechanical Ventilator 25.00 11/15/21 02:46 79 17 93 25 11/15/21 02:00 83 18 149/71 94 Mechanical Ventilator 25.00 11/15/21 01:00 85 18 151/70 94 Mechanical Ventilator 25.00 11/15/21 01:00 85 11/15/21 00:00 83 18 149/67 95 Mechanical Ventilator 25.00 11/15/21 00:00 94 Mechanical Ventilator 30 11/14/21 23:58 36.5 11/14/21 23:00 81 18 150/68 93 Mechanical Ventilator 25.00 11/14/21 22:25 81 19 92 30 11/14/21 22:00 73 18 136/67 90 Mechanical Ventilator 25.00 11/14/21 21:00 73 18 132/61 91 Mechanical Ventilator 25.00 11/14/21 20:00 80 18 155/71 95 Mechanical Ventilator 25.00 11/14/21 20:00 97 Mechanical Ventilator 30 11/14/21 20:00 36.7 11/14/21 19:45 81 20 147/68 97 Mechanical Ventilator 30.00 11/14/21 19:00 80 18 158/74 96 Mechanical Ventilator 30.00 11/14/21 19:00 80 11/14/21 18:24 74 20 94 30 11/14/21 18:00 79 23 146/68 92 Mechanical Ventilator 30.00 I & O 11/15/21 07:00 Intake Total 4330 ml Output Total 1175 ml Balance 3155 ml Height & Weight Height: 5'2" Weight: 226lbs. oz. 102.447438ds; 40.69 BMI Method: General Appearance: Chronically ill, Obese, Other (intubated) HEENT: PERRL/EOMI Neck: Full Range of Motion Respiratory: Lungs Clear, Normal Breath Sounds Cardiovascular: Regular Rate, Rhythm Capillary Refill: Less Than 3 Seconds Gastrointestinal: normal bowel sounds, soft Extremity: Normal Capillary Refill, Swelling Neurologic/Psychiatric: Other (On vent) Skin: Normal Color, Warm/Dry Lymphatic: No Adenopathy Results Lab Laboratory Tests 11/14/21 04:20 11/15/21 04:45 Assessment/Plan Assessment/Plan ` SARAH ROTH MD November 15, 2021 17:51
[2021-11-15 19:10] VITALS: BP 111/54
[2021-11-15] MEDS: ENOXAPARIN INJECTION 30 MG/0.3 ML SYR SC SCH (20:03)
[2021-11-15 22:38] VITALS: BP 118/59
[2021-11-16] VITALS (7 sets, daily range): BP systolic 94–138; BP diastolic 51–78
[2021-11-16] MEDS: RT-ALBUTEROL SULF 2.5 MG/3 ML PRE-MIX VIAL INH SCH ×2 (02:42→07:16)
[2021-11-16] MEDS: NS IV 1000 ML 1,000 ML IV SCH (02:57)
[2021-11-16 03:53] LABS: BASOPHILS # (AUTO) 0.1 10^3/uL (0.0-0.1); BASOPHILS % (AUTO) 0 % (0-10); EOSINOPHILS # (AUTO) 0.6 10^3/uL (0.0-0.3); EOSINOPHILS % (AUTO) 5 % (0-10); HEMATOCRIT 31 % (35-52); HEMOGLOBIN 9.3 g/dL (11.5-16.0); LYMPHOCYTES # (AUTO) 2.1 10^3/uL (1.0-4.0); LYMPHOCYTES % (AUTO) 17 % (12-44); MEAN CORPUSCULAR HEMOGLOBIN 26 pg (25-34); MEAN CORPUSCULAR HGB CONC 30 g/dL (32-36); MEAN CORPUSCULAR VOLUME 86 fL (80-99); MEAN PLATELET VOLUME 12.3 fL (9.0-12.2); MONOCYTES # (AUTO) 1.1 10^3/uL (0.0-1.0); MONOCYTES % (AUTO) 8 % (0-12); NEUTROPHILS # (AUTO) 8.8 10^3/uL (1.8-7.8); NEUTROPHILS % (AUTO) 69 % (42-75); PLATELET COUNT 205 10^3/uL (130-400); WHITE BLOOD COUNT 12.8 10^3/uL (4.3-11.0)
[2021-11-16 04:14] LABS: ALBUMIN 2.1 GM/DL (3.2-4.5); POTASSIUM 4.9 MMOL/L (3.6-5.0)
[2021-11-16 04:15] LABS: CALCIUM 8.3 MG/DL (8.5-10.1)
[2021-11-16 04:18] LABS: BILIRUBIN,TOTAL 0.6 MG/DL (0.1-1.0)
[2021-11-16 04:20] LABS: CREATININE SERUM 3.73 MG/DL (0.60-1.30); PHOSPHORUS 3.7 MG/DL (2.3-4.7)
[2021-11-16 04:23] LABS: MAGNESIUM 2.4 MG/DL (1.6-2.4)
[2021-11-16 04:31] LABS: CREATINE KINASE MB 1.3 NG/ML (<6.6)
[2021-11-16] MEDS: inSUlin ASPART (NovoLOG) 1 UNIT/0.01 ML (CHARGE PER UNIT) SC SCH (04:52)
--- NOTE | 2021-11-16 06:35 | Progress Note - Hospitalist ---
Subjective HPI/CC On Admission Date Seen by Provider: Nov 16, 2021 Time Seen by Provider: 10:00 Subjective/Events-last exam Pt is off sedation since Sunday and not waking up I had a 20 minute conversation with eICU and reviewed every detail on the case so we ordered a CT scan that showed a stroke Brother is still having difficulty terminally extubating the pt but with this new information on the stroke. That will give him more information to tell the family what exactly is happening. Creatinine of 3.7 Focused Exam Time of Focused Exam: 00:30 Objective Exam Vital Signs Vital Signs Date Time Temp Pulse Resp B/P (MAP) Pulse Ox O2 Delivery O2 Flow Rate FiO2 11/17/21 04:00 Mechanical Ventilator 30 11/17/21 03:00 57 19 97/46 91 25.00 11/17/21 00:00 36.6 Capillary Refill : Less Than 3 Seconds General Appearance: No Apparent Distress, WD/WN, Chronically ill, Obese Respiratory: Lungs Clear, Normal Breath Sounds Results/Procedures Lab Laboratory Tests 11/17/21 04:00 Patient resulted labs reviewed. Assessment/Plan Assessment and Plan Assess & Plan/Chief Complaint Assessment/Plan 1A: CVA with no recovery of neuro function (1) Cardiopulmonary arrest with successful resuscitation Status: Acute Assessment & Plan: s/p about 5 minutes of CPR and 2 doses of epinephrine, minimally to unresponsive after, now intubated. BP okay initially, monitor closely. See goals of care discussion. (2) Respiratory failure Status: Acute Assessment & Plan: Suspect possibly pulmonary edema vs mucous plugging given she has been receiving large amount as was needed for her rhabdo, and her post- intubation CXR shows white-out of left side, contacted Dr. Chanel del rosario for possible bronchoscopy. Lasix 20 mg IV given before code event when her hypoxia was worsening. IVF running at 30 mls/hr with potassium. Qualifiers: Qualified Codes: J96.01 - Acute respiratory failure with hypoxia (3) Sepsis Status: Acute Assessment & Plan: Secondary to urinary tract infection, IVF and ceftriaxone. Culture pending. 11/11 holding IVF due to hypoxic respiratory failure. Qualifiers: (4) Lactic acidosis Status: Resolved Assessment & Plan: 11/10- Suspect secondary to tissue hypoxia with rhabdo, resolved overnight with IVF. (5) Candidal intertrigo Status: Acute Assessment & Plan: 11/10- Severe, diffuse, will treat with diflucan x 7 days. (6) Morbid obesity Status: Chronic (7) Hypothermia Status: Acute Assessment & Plan: Improving, continue treating underlying conditions Qualifiers: Qualified Codes: T68.XXXA - Hypothermia, initial encounter (8) Renal insufficiency Status: Acute Assessment & Plan: Trending improved with IVF resuscitation, suspect secondary to dehydration and rhabdomyolysis 11/11 creatinine trending down, but now holding IVF due to hypoxic respiratory failure (9) UTI (urinary tract infection) Status: Acute Assessment & Plan: Culture pending, ceftriaxone started. (10) Uncontrolled diabetes mellitus Status: Chronic Assessment & Plan: Reviewed clinic chart, 10/10/21 A1c 11.3 Sliding scale insulin, diabetic diet when tolerating oral. Was not taking home medications for some time. Qualifiers: Qualified Codes: E11.65 - Type 2 diabetes mellitus with hyperglycemia (11) Elevated troponin Status: Acute Assessment & Plan: Cardiology consulted, appreciate recommendations. Suspect related to rhabdo rather than new cardiac event. (12) Contusion of right shoulder Status: Acute Assessment & Plan: Xray without fracture Qualifiers: Qualified Codes: S40.011A - Contusion of right shoulder, initial encounter (13) Fall from standing Status: Acute Assessment & Plan: PT when able Qualifiers: Qualified Codes: W19.XXXA - Unspecified fall, initial encounter (14) Rhabdomyolysis Status: Acute Assessment & Plan: IVF, monitor CK and creatinine Qualifiers: Qualified Codes: T79.6XXA - Traumatic ischemia of muscle, initial encounter (15) Hypertension Status: Chronic Qualifiers: Qualified Codes: I10 - Essential (primary) hypertension (16) Hyperlipidemia Status: Chronic (17) Coronary artery disease without angina pectoris Status: Chronic Assessment & Plan: History of bypass, has not been taking medications at home. Restarted aspirin, cannot tolerate beta ran and ACEI due to current BP. Qualifiers: Qualified Codes: I25.810 - Atherosclerosis of coronary artery bypass graft(s) without angina pectoris (18) DVT prophylaxis Status: Acute Assessment & Plan: Enoxaparin (19) Goals of care, counseling/discussion Status: Acute Assessment & Plan: 11/11 Spoke with brother Alan this morning after code event, p t was unable to have in depth conversation yesterday and he reports they haven't really talked about her wishes. He does feel confident that if she has hypoxic brain insult, she would not want to be on the ventilator for a prolonged period. He also notes that she has been failing at home for some time, she does not drive, she is not taking her medications and has been having more and more difficulty getting around but has resisted moving in with someone else, although after the last time she fell, her family told her if she had another fall they felt she could not go back to her home alone. Discussed that it is difficult to know yet whether she has sustained further watermaster consequences after her arrest, and will monitor closely over next 24-48 hours with the recognition that family does feel she would prefer comfort over aggressive care if not thought to be likely to be beneficial. Plan: Supportive care Assess neurologic function 11/13/21: DNR Poor prognosis 11/14/21: Monitor closely DNR Poor prognosis 11/15/21: Supportive care Prognosis poor 11/16/21: CVA with no recovery of neuro function Critical Care Ventilator Management VANDANA KNOWLES DO Nov 16, 2021 06:35
--- NOTE | 2021-11-16 06:52 | Occ Therapy Progress Note ---
Therapy Progress Note Pt. continues on ventilator support. Will hold Occupational Therapy at this time. SRAVAN GALVEZ Nov 16, 2021 06:52
--- NOTE | 2021-11-16 07:54 | Diagnostic Imaging Report ---
INDICATION: Respiratory failure Portable AP view of the chest is obtained with comparison made to the study of one day earlier. There is no significant change in appearance of support tubes with endotracheal tube reaching the thoracic inlet. Nasogastric tube passes below the diaphragm. Surgical findings are seen in the mediastinum. There is mild cardiomegaly with central density in the lungs which likely represents edema. IMPRESSION: Mild perihilar density likely representing edema. This may be on the basis of congestive heart failure. Otherwise, no significant change is appreciated. Dictated by: Dictated on workstation # [id number]
--- NOTE | 2021-11-16 08:01 | Physical Therapy Progress Note ---
Therapy Progress Note Patient s/p code blue and is currently intubated. PT will monitor patient status and initiate treatment when patient is medically stable and able to actively participate with skilled PT. VISHNU MCGILL PT Nov 16, 2021 08:01
[2021-11-16] MEDS: NOREPINEPHRINE 8 MG/250 ML 250 ML IV SCH (08:50)
[2021-11-16] MEDS: PIPERACILLIN SODIUM/TAZOBACTAM 4.5 GM in NS (IVPB) 100 ML IV SCH (08:58)
[2021-11-16] MEDS: PANTOPRAZOLE 40 MG (PROTONIX) VIAL IV SCH (08:58)
[2021-11-16] MEDS: FLUCONAZOLE 100 MG/50 ML 50 ML IV SCH (08:58)
[2021-11-16] MEDS: MICONAZOLE 2% POWDER (DESENEX AF) 90 GM TOP SCH (08:59)
[2021-11-16] MEDS: ASPIRIN E.C. 81 MG (ECOTRIN) TAB PO SCH (08:59)
--- NOTE | 2021-11-16 09:20 | Cardiology Progress Note ---
Progress Note-Cardiology Events since last exam Date Seen by Provider: Nov 16, 2021 Time Seen by Provider: 09:18 Events since last exam I am following her due to in-hospital cardiac arrest. She remains in the int ensive care unit intubated. She has not received any sedation for 4 days. At times she will open her eyes for the nurses but has not been moving any of her extremities. She is receiving normal saline at 100 mL/h and also tube feeds with free water boluses. I am not able to obtain any history from the patient due to her clinical status. Her son is here at the bedside and his asked to have his mother terminally extubated. Certain portions of this document may have been dictated utilizing voice recognition technology. Inherent to this technology, typographical and grammatical errors may exist. As much as I am diligent to identify and correct these mistakes, some errors may remain in the document. Vitals Last set of Vitals Signs Vital Signs 11/16/21 11/16/21 11/16/21 06:00 07:16 08:24 Temp 36.6 Pulse 63 Resp 20 B/P (MAP) 121/60 Pulse Ox 95 O2 Delivery Mechanical Ventilator O2 Flow Rate 35.00 FiO2 35 Labs Labs Laboratory Tests 11/16/21 03:47 Exam Vital Signs Vital Signs Date Time Temp Pulse Resp B/P (MAP) Pulse Ox O2 Delivery O2 Flow Rate FiO2 11/16/21 08:24 36.6 11/16/21 07:16 63 20 95 35 11/16/21 06:00 121/60 Mechanical Ventilator 35.00 Physical Exam General: Intubated and unresponsive for the most part. She is morbidly obese. Eye: Conjunctivae are clear. There are no xanthelasma. HENT: Normocephalic. Atraumatic. Carotid pulsations 2/2 without bruits. Neck: Jugular venous pressure does not appear elevated. No thyromegaly appreciated. Respiratory: Symmetrical expansion bilaterally. Coarse breath sounds due to the ventilator. Cardiovascular: Normal rate. Regular rhythm. Distant S1/S2. No murmur. No gallop. Point of maximal impulse is not appear displaced. Good pulses equal in all extremities. 1+ bilateral pretibial edema. Gastrointestinal: Soft. Normal bowel sounds. Skin: Skin turgor is normal. There is no pallor. Musculoskeletal: No obvious deformities. Neurologic: Intubated and sedated. Psychiatric: Not obtainable due to clinical status. Labs Laboratory Tests Test 11/15/21 13:00 11/15/21 17:44 11/15/21 23:50 11/16/21 03:47 Range/Units Glucometer 238 H 212 H 219 H 70-110 MG/DL White Blood Count 12.8 H 4.3-11.0 10^3/uL Red Blood Count 3.65 L 3.80-5.11 10^6/uL Hemoglobin 9.3 L 11.5-16.0 g/dL Hematocrit 31 L 35-52 % Mean Corpuscular Volume 86 80-99 fL Mean Corpuscular Hemoglobin 26 25-34 pg Mean Corpuscular Hemoglobin Concent 30 L 32-36 g/dL Red Cell Distribution Width 15.8 H 10.0-14.5 % Platelet Count 205 130-400 10^3/uL Mean Platelet Volume 12.3 H 9.0-12.2 fL Immature Granulocyte % (Auto) 1 % Neutrophils (%) (Auto) 69 42-75 % Lymphocytes (%) (Auto) 17 12-44 % Monocytes (%) (Auto) 8 0-12 % Eosinophils (%) (Auto) 5 0-10 % Basophils (%) (Auto) 0 0-10 % Neutrophils # (Auto) 8.8 H 1.8-7.8 10^3/uL Lymphocytes # (Auto) 2.1 1.0-4.0 10^3/uL Monocytes # (Auto) 1.1 H 0.0-1.0 10^3/uL Eosinophils # (Auto) 0.6 H 0.0-0.3 10^3/uL Basophils # (Auto) 0.1 0.0-0.1 10^3/uL Immature Granulocyte # (Auto) 0.2 H 0.0-0.1 10^3/uL Sodium Level 146 H 135-145 MMOL/L Potassium Level 4.9 3.6-5.0 MMOL/L Chloride Level 114 H 98-107 MMOL/L Carbon Dioxide Level 16 L 21-32 MMOL/L Anion Gap 16 H 5-14 MMOL/L Blood Urea Nitrogen 48 H 7-18 MG/DL Creatinine 3.73 H 0.60-1.30 MG/DL Estimat Glomerular Filtration Rate 13 BUN/Creatinine Ratio 13 Glucose Level 238 H 70-105 MG/DL Calcium Level 8.3 L 8.5-10.1 MG/DL Corrected Calcium 9.8 8.5-10.1 MG/DL Phosphorus Level 3.7 2.3-4.7 MG/DL Magnesium Level 2.4 1.6-2.4 MG/DL Total Bilirubin 0.6 0.1-1.0 MG/DL Aspartate Amino Transf (AST/SGOT) 35 H 5-34 U/L Alanine Aminotransferase (ALT/SGPT) 55 0-55 U/L Alkaline Phosphatase 224 H 40-136 U/L Total Creatine Kinase 141 29-168 U/L Creatine Kinase MB 1.3 <6.6 NG/ML Myoglobin 1050.4 H 10.0-92.0 NG/ML Troponin I 1.810 *H <0.028 NG/ML Total Protein 6.0 L 6.4-8.2 GM/DL Albumin 2.1 L 3.2-4.5 GM/DL Diagnosis/Problems Diagnosis/Problems (1) Cardiopulmonary arrest with successful resuscitation Status: Acute Assessment & Plan: I suspect this was initially a respiratory arrest due to some mucous plugging that then resulted in cardiac arrest. She has had minimal neurologic recovery since the cardiopulmonary arrest. Her son has requested terminal extubation. This is not unreasonable. (2) Elevated troponin Status: Acute Assessment & Plan: I suspect this is due to rhabdomyolysis and does not represent an acute coronary syndrome. As above, she will be terminally extubated today. (3) Coronary artery disease without angina pectoris Status: Chronic Assessment & Plan: Despite her fall and elevated troponin, she was not reporting any chest discomfort prior to the cardiopulmonary arrest in the hospital. She had borderline ischemic changes on her electrocardiogram. As above, I suspect the troponin elevation is due to rhabdomyolysis. (4) Primary hypertension Assessment & Plan: She has a reported history of hypertension but may not have been taking any medication for this at home. Her blood pressure did actually come under control with oral medication over the past 24 hours. (5) Mixed hyperlipidemia Assessment & Plan: Her cholesterol level was markedly elevated at the time of admission. Statin medication was not given due to markedly abnormal liver function tests. (6) Shock Assessment & Plan: She did develop some shock following the cardiopulmonary arrest and required some norepinephrine infusion for less than 24 hours. Exact etiology of the shock is unclear. This has now resolved. (7) Acute kidney injury Assessment & Plan: Her renal function stabilized around a creatinine level of 3.5-3.7. (8) Rhabdomyolysis Status: Acute Assessment & Plan: She had been receiving intravenous fluids under the direction of the hospitalist. (9) Morbid obesity Status: Chronic Assessment & Plan: I suspect this contributed to her current clinical condition. Problem Qualifiers (1) Coronary artery disease without angina pectoris: Coronary Disease-Associated Artery/Lesion type: bypass graft [place] vs. transplanted heart: [place] heart Qualified Codes: I25.810 - Atherosclerosis of coronary artery bypass graft(s) without angina pectoris (2) Rhabdomyolysis: Rhabdomyolysis type: traumatic Encounter type: initial encounter Qualified Codes: T79.6XXA - Traumatic ischemia of muscle, initial encounter ROGER TUCKER JR, MD Nov 16, 2021 09:19
--- NOTE | 2021-11-16 09:51 | Tele-ICU Progress Note ---
Subjective Date Seen by a Provider: Nov 16, 2021 Time Seen by a Provider: 09:50 Subjective/Events-last exam (Tele-ICU Physician , Progress Note ) Available chart/ vitals / labs / Images reviewed Video assessment done using teleICU camera Events overnight : increase d need for o2 Afebrile FiO2 - I/O = pos 3 L Drips: ns 250 Pressors: , hemodynamically stable Consultants: Hospital course: (11/10) 61yF Admit s/p unwitnessed fall @ home. Down approx 36 hours. DX: fall from standing, Uncontrolled DM, Lactic Acidosis, UTI, Hypothermia, sepsis, dehydration,RI, Candidal Inertrigo, Inability to care for self, R shoulder contusion, Morbid obesity, Elev Trop, Early Rhabdo, Non complaince (11/11) Tachypneic & hypoxic. Treated for fluid overload. Failed Bipap. Intubated. Brief cardiac arrest - due to hypoxia - 1 amp epi given , 1 round ACLS PER RN - FAMILY IS CONSIDERING TO CHANGE TO COMFORT MEASURES TODAY - WILL FOLLOW NO NEW RECOM AT THIS TIME - WILL RE-ROUND ON PTIENT LATTER IF NEEDED A/P Acute resp failure - faled NIPPV this am --INTUBATED 11/11 - bronchoscopy for signigicanr mucous plugging with almost full LEFT lung atelectasis -FIO@ 25 % Brief cardiac arrest - due to hypoxia - 1 amp epi given , 1 round ACLS - fully AAO prior to arrest , intubated without meds - follow mental status CAD - elv trop - as per cards - EF 10/2021 - EF 60% Rhabdo - very mild YANET - WORSENIGN despite 4L positive last 24 h PNA - s/p FOB 11/11- Cx + for pansens Staph renny - on zosyn DM II - poorly controlled Anemia - stable S/p fall on tresentation - CT cerv - no trauma -Contusion of right shoulder morbid obesity Lines : R IJ to be place 11/11 (Central Line Necessity Reviewed) [place]: 11/10 OG: + Nutrition: Analgesia: Anxiety/ delirium VTE Prophylaxis: ramiro 40 Stress Ulcer Prophylaxis: ppi Plans in collaboration with bedside consultants and IM MDs. RN to reach out if any questions or concerns A total of 5 minutes of critical care time was devoted to this patient today, required to treat and/or prevent further deterioration of critical care condition ( as above) . Sepsis Event Evaluation Height, Weight, BMI Height: 5'2" Weight: 226lbs. oz. 102.425902xq; 40.69 BMI Method: Focused Exam Time of Focused Exam: 00:30 Exam Exam Patient acknowledged, consented, and participated in this virtual visit which was conducted using real time audio/video Vital Signs Date Time Temp Pulse Resp B/P (MAP) Pulse Ox O2 Delivery O2 Flow Rate FiO2 11/16/21 08:24 36.6 11/16/21 07:16 63 20 95 35 11/16/21 07:00 60 11/16/21 06:00 60 19 121/60 95 Mechanical Ventilator 35.00 11/16/21 05:00 61 19 125/62 96 Mechanical Ventilator 35.00 11/16/21 04:00 35.9 Mechanical Ventilator 35.00 11/16/21 04:00 95 Mechanical Ventilator 35 11/16/21 04:00 63 20 132/70 96 Mechanical Ventilator 35.00 11/16/21 03:00 60 19 120/63 94 Mechanical Ventilator 35.00 11/16/21 02:42 58 20 97 35 11/16/21 02:00 61 19 120/64 96 Mechanical Ventilator 35.00 11/16/21 01:00 63 20 125/61 95 Mechanical Ventilator 35.00 11/16/21 01:00 63 11/16/21 00:00 36.0 Mechanical Ventilator 35.00 11/16/21 00:00 64 19 127/64 97 Mechanical Ventilator 40.00 11/15/21 23:07 95 Mechanical Ventilator 35 11/15/21 23:00 61 19 122/60 97 Mechanical Ventilator 40.00 11/15/21 22:44 36.4 11/15/21 22:38 64 20 93 40 11/15/21 22:00 65 21 119/59 89 Mechanical Ventilator 35.00 11/15/21 21:00 64 19 117/60 95 Mechanical Ventilator 35.00 11/15/21 20:02 111/55 11/15/21 20:00 65 18 132/68 96 Mechanical Ventilator 35.00 11/15/21 20:00 95 Mechanical Ventilator 35 11/15/21 19:56 36.3 11/15/21 19:10 67 20 95 35 11/15/21 19:00 64 19 113/56 96 Mechanical Ventilator 35.00 11/15/21 19:00 64 11/15/21 18:00 67 19 116/59 96 Mechanical Ventilator 35.00 11/15/21 17:00 68 18 118/57 96 Mechanical Ventilator 35.00 11/15/21 16:00 95 Mechanical Ventilator 35 11/15/21 16:00 36.8 11/15/21 16:00 71 19 114/56 96 Mechanical Ventilator 35.00 11/15/21 15:08 15 90 Mechanical Ventilator 35.00 11/15/21 15:00 69 20 105/51 90 Mechanical Ventilator 25.00 11/15/21 14:44 66 20 93 25 11/15/21 14:00 67 15 126/63 93 Mechanical Ventilator 25.00 11/15/21 13:00 67 19 124/64 93 Mechanical Ventilator 25.00 11/15/21 12:54 68 11/15/21 12:00 70 22 125/67 93 Mechanical Ventilator 25.00 11/15/21 12:00 95 Mechanical Ventilator 25 11/15/21 11:00 72 24 123/64 92 Mechanical Ventilator 25.00 11/15/21 10:00 78 27 140/66 92 Mechanical Ventilator 25.00 I & O 11/16/21 07:00 Intake Total 2930 ml Output Total 1700 ml Balance 1230 ml Height & Weight Height: 5'2" Weight: 226lbs. oz. 102.726678px; 40.69 BMI Method: General Appearance: No Apparent Distress, WD/WN, Chronically ill, Other (sedated intubated) HEENT: PERRL/EOMI Neck: Full Range of Motion Respiratory: Decreased Breath Sounds Cardiovascular: Regular Rate, Rhythm Capillary Refill: Less Than 3 Seconds Gastrointestinal: normal bowel sounds, soft Extremity: Normal Capillary Refill, Swelling Neurologic/Psychiatric: Other (On vent) Skin: Normal Color, Warm/Dry Lymphatic: No Adenopathy Results Lab Laboratory Tests 11/15/21 04:45 11/16/21 03:47 Assessment/Plan Assessment/Plan ` SARAH ROTH MD Nov 16, 2021 09:51
[2021-11-16] MEDS ORDERED: SALIVA STIMULANT MOUTH SPRAY (BIOTENE) 1.5 OZ MM PRN (10:00)
[2021-11-16] MEDS ORDERED: GLYCOPYRROLATE 0.2 MG/ML (ROBINUL) 2 ML VIAL IV PRN (10:00)
[2021-11-16] MEDS ORDERED: RT-ALBUTEROL/IPRATROPIUM 3 ML (DUONEB) VIAL INH PRN (10:00)
[2021-11-16] MEDS ORDERED: LORazepam INJ 2 MG/ML (ATIVAN) VIAL IVP PRN (10:00)
[2021-11-16] MEDS ORDERED: PROMETHAZINE INJ 25 MG/ML (PHENERGAN) AMP IVP PRN (10:00)
[2021-11-16] MEDS ORDERED: ACETAMINOPHEN 650 MG SUPP (TYLENOL) PR PRN (10:00)
[2021-11-16] MEDS ORDERED: morphine INJ 4 MG/ML 1 ML (VIAL/SYRINGE) IV PRN (10:00)
[2021-11-16] MEDS ORDERED: ONDANSETRON 4 MG/2 ML (SDV) Z0FRAN IVP PRN (10:00)
[2021-11-16] MEDS ORDERED: ARTIFICAL TEARS 0.4 ML UNIT DOSE (REFRESH PLUS) OU PRN (10:00)
[2021-11-16] MEDS ORDERED: BISACODYL 10 MG SUPP (DULCOLAX) PR PRN (10:00)
--- NOTE | 2021-11-16 12:11 | Progress Note ---
Subjective Date Seen by a Provider: November 15, 2021 Time Seen by a Provider: 12:00 Subjective/Events-last exam this note reflects patient visit on sunday(11/15). pt on vent sedated. gag reflux intact, does respond sometime to voice. worsening renal failure. Focused Exam Time of Focused Exam: 00:30 Objective Exam Vital Signs Date Time Temp Pulse Resp B/P (MAP) Pulse Ox O2 Delivery O2 Flow Rate FiO2 11/16/21 11:05 36.6 11/16/21 11:02 96 Mechanical Ventilator 35 11/16/21 11:00 58 23 106/54 96 Mechanical Ventilator 35.00 11/16/21 10:36 56 20 95 35 11/16/21 10:00 57 20 107/58 95 Mechanical Ventilator 35.00 11/16/21 09:00 64 19 119/61 95 Mechanical Ventilator 35.00 11/16/21 08:24 36.6 11/16/21 08:00 64 20 122/59 95 Mechanical Ventilator 35.00 11/16/21 08:00 95 Mechanical Ventilator 35 11/16/21 07:16 63 20 95 35 11/16/21 07:00 60 20 119/59 95 Mechanical Ventilator 35.00 11/16/21 07:00 60 11/16/21 06:00 60 19 121/60 95 Mechanical Ventilator 35.00 11/16/21 05:00 61 19 125/62 96 Mechanical Ventilator 35.00 11/16/21 04:00 35.9 Mechanical Ventilator 35.00 11/16/21 04:00 95 Mechanical Ventilator 35 11/16/21 04:00 63 20 132/70 96 Mechanical Ventilator 35.00 11/16/21 03:00 60 19 120/63 94 Mechanical Ventilator 35.00 11/16/21 02:42 58 20 97 35 11/16/21 02:00 61 19 120/64 96 Mechanical Ventilator 35.00 11/16/21 01:00 63 20 125/61 95 Mechanical Ventilator 35.00 11/16/21 01:00 63 11/16/21 00:00 36.0 Mechanical Ventilator 35.00 11/16/21 00:00 64 19 127/64 97 Mechanical Ventilator 40.00 11/15/21 23:07 95 Mechanical Ventilator 35 11/15/21 23:00 61 19 122/60 97 Mechanical Ventilator 40.00 11/15/21 22:44 36.4 11/15/21 22:38 64 20 93 40 11/15/21 22:00 65 21 119/59 89 Mechanical Ventilator 35.00 11/15/21 21:00 64 19 117/60 95 Mechanical Ventilator 35.00 11/15/21 20:02 111/55 11/15/21 20:00 65 18 132/68 96 Mechanical Ventilator 35.00 11/15/21 20:00 95 Mechanical Ventilator 35 11/15/21 19:56 36.3 11/15/21 19:10 67 20 95 35 11/15/21 19:00 64 19 113/56 96 Mechanical Ventilator 35.00 11/15/21 19:00 64 11/15/21 18:00 67 19 116/59 96 Mechanical Ventilator 35.00 11/15/21 17:00 68 18 118/57 96 Mechanical Ventilator 35.00 11/15/21 16:00 95 Mechanical Ventilator 35 11/15/21 16:00 36.8 11/15/21 16:00 71 19 114/56 96 Mechanical Ventilator 35.00 11/15/21 15:08 15 90 Mechanical Ventilator 35.00 11/15/21 15:00 69 20 105/51 90 Mechanical Ventilator 25.00 11/15/21 14:44 66 20 93 25 11/15/21 14:00 67 15 126/63 93 Mechanical Ventilator 25.00 11/15/21 13:00 67 19 124/64 93 Mechanical Ventilator 25.00 11/15/21 12:54 68 I & O 11/16/21 07:00 Intake Total 2930 ml Output Total 1700 ml Balance 1230 ml Capillary Refill : Less Than 3 Seconds General Appearance: No Apparent Distress HEENT: TMs Normal Neck: Full Range of Motion Respiratory: Decreased Breath Sounds, Rhonci Cardiovascular: Regular Rate, Rhythm Gastrointestinal: normal bowel sounds, non tender, soft Extremity: Normal Capillary Refill Neurologic/Psychiatric: Other (on vent with weak neuro response) Skin: Normal Color Lymphatic: No Adenopathy Results Lab Laboratory Tests 11/15/21 13:00: Glucometer 238H 11/15/21 17:44: Glucometer 212H 11/15/21 23:50: Glucometer 219H 11/16/21 03:47: White Blood Count 12.8H, Red Blood Count 3.65L, Hemoglobin 9.3L, Hematocrit 31L, Mean Corpuscular Volume 86, Mean Corpuscular Hemoglobin 26, Mean Corpuscular Hemoglobin Concent 30L, Red Cell Distribution Width 15.8H, Platelet Count 205, Mean Platelet Volume 12.3H, Immature Granulocyte % (Auto) 1, Neutrophils (%) (Auto) 69, Lymphocytes (%) (Auto) 17, Monocytes (%) (Auto) 8, Eosinophils (%) (Auto) 5, Basophils (%) (Auto) 0, Neutrophils # (Auto) 8.8H, Lymphocytes # (Auto) 2.1, Monocytes # (Auto) 1.1H, Eosinophils # (Auto) 0.6H, Basophils # (Auto) 0.1, Immature Granulocyte # (Auto) 0.2H, Sodium Level 146H, Potassium Level 4.9, Chloride Level 114H, Carbon Dioxide Level 16L, Anion Gap 16H, Blood Urea Nitrogen 48H, Creatinine 3.73H, Estimat Glomerular Filtration Rate 13, BUN/Creatinine Ratio 13, Glucose Level 238H, Calcium Level 8.3L, Corrected Calcium 9.8, Phosphorus Level 3.7, Magnesium Level 2.4, Total Bilirubin 0.6, Aspartate Amino Transf (AST/SGOT) 35H, Alanine Aminotransferase (ALT/SGPT) 55, Alkaline Phosphatase 224H, Total Creatine Kinase 141, Creatine Kinase MB 1.3, Myoglobin 1050.4H, Troponin I 1.810*H, Total Protein 6.0L, Albumin 2.1L Microbiology 11/11/21 Mycobacterial Culture - Preliminary, Resulted 11/10/21 Blood Culture - Preliminary, Resulted No growth 11/09/21 Urine Culture - Final, Complete 3 or more isolates Assessment/Plan Assessment/Plan Assess & Plan/Chief Complaint fall,loss of consciousness, obtundation and dehydration, respiratory and renal failure. cont vent ween. renal fxn worsening. fluids and monitory vs. transfer and CVVHD? cont abx and antifungal. LUCA GUTIERREZ MD Nov 16, 2021 12:10
--- NOTE | 2021-11-16 14:07 | Diagnostic Imaging Report ---
INDICATION: Unresponsive, status post fall. TECHNIQUE: Multiple contiguous axial images were obtained through the brain without the use of intravenous contrast. Auto Exposure Controls were utilized during the CT exam to meet ALARA standards for radiation dose reduction. COMPARISON: Comparison made to 11/09/2021. FINDINGS: There are mild diffuse atrophic changes. There are low-density changes in the deep white matter, compatible with chronic ischemic change. There is a lacunar infarct in the right internal capsule and thalamus which was not seen on 11/09/2021 and therefore is acute. There is no subdural or epidural hemorrhage. Ventricles are normal in size. There is no new territorial ischemia. Calvarial windows are unremarkable. There is partial opacification of the mastoid air cells. IMPRESSION: Compared to the prior study, there is a new lacunar infarct in the right internal capsule and thalamus. There is no acute hemorrhage. There are mild underlying atrophic changes and chronic changes in deep white matter with no other acute finding. Dictated by: Dictated on workstation # [id number]
[2021-11-16] MEDS: inSUlin ASPART (NovoLOG) 1 UNIT/0.01 ML (CHARGE PER UNIT) SQ SCH ×2 (18:34→22:54)
[2021-11-17 02:49] VITALS: BP 95/47
[2021-11-17 04:04] LABS: ABG BASE EXCESS -7.3 MMOL/L (-2.5-2.5); ABG OXYGEN SATURATION 95 % (94-100); ABG PCO2 44 MMHG (35-45); ABG PO2 80 MMHG (79-93); ABG TCO2 19.9 MMOL/L (21.0-31.0); BASOPHILS # (AUTO) 0.1 10^3/uL (0.0-0.1); BASOPHILS % (AUTO) 0 % (0-10); EOSINOPHILS # (AUTO) 0.4 10^3/uL (0.0-0.3); EOSINOPHILS % (AUTO) 3 % (0-10); HEMATOCRIT 31 % (35-52); HEMOGLOBIN 9.2 g/dL (11.5-16.0); LYMPHOCYTES # (AUTO) 2.5 10^3/uL (1.0-4.0); LYMPHOCYTES % (AUTO) 16 % (12-44); MEAN CORPUSCULAR HEMOGLOBIN 25 pg (25-34); MEAN CORPUSCULAR HGB CONC 29 g/dL (32-36); MEAN CORPUSCULAR VOLUME 86 fL (80-99); MEAN PLATELET VOLUME 12.4 fL (9.0-12.2); MONOCYTES # (AUTO) 1.1 10^3/uL (0.0-1.0); MONOCYTES % (AUTO) 7 % (0-12); NEUTROPHILS # (AUTO) 11.1 10^3/uL (1.8-7.8); NEUTROPHILS % (AUTO) 72 % (42-75); PLATELET COUNT 215 10^3/uL (130-400); WHITE BLOOD COUNT 15.3 10^3/uL (4.3-11.0)
[2021-11-17 04:05] LABS: ALLENS TEST YES-POS; INSPIRED O2 30%; PATIENT TEMP 37.3; VENTILATOR YES
[2021-11-17 04:09] LABS: ABG PH 7.25 (7.37-7.43)
[2021-11-17 04:25] LABS: ANISOCYTOSIS SLIGHT; BAND NEUTROPHILS 2 %; BASOPHILS % (MANUAL) 0 %; EOSINOPHILS % (MANUAL) 0 %; LYMPHOCYTES % (MANUAL) 13 %; MONOCYTES % (MANUAL) 6 %; NEUTROPHILS % (MANUAL) 79 %; POLYCHROMASIA SLIGHT
[2021-11-17 04:31] LABS: ALBUMIN 2.1 GM/DL (3.2-4.5)
[2021-11-17 04:32] LABS: CALCIUM 8.5 MG/DL (8.5-10.1)
[2021-11-17 04:34] LABS: TOTAL PROTEIN 6.1 GM/DL (6.4-8.2)
[2021-11-17 04:35] LABS: BILIRUBIN,TOTAL 0.4 MG/DL (0.1-1.0)
[2021-11-17 04:37] LABS: CREATININE SERUM 4.01 MG/DL (0.60-1.30)
[2021-11-17] MEDS: inSUlin ASPART (NovoLOG) 1 UNIT/0.01 ML (CHARGE PER UNIT) SQ SCH ×2 (05:53→12:03)
--- NOTE | 2021-11-17 06:33 | Progress Note - Hospitalist ---
Subjective HPI/CC On Admission Date Seen by Provider: Nov 17, 2021 Time Seen by Provider: 11:00 Focused Exam Time of Focused Exam: 00:30 Objective Exam Vital Signs Vital Signs Date Time Temp Pulse Resp B/P (MAP) Pulse Ox O2 Delivery O2 Flow Rate FiO2 11/17/21 14:50 50 26 94 30 11/17/21 14:00 141/68 Mechanical Ventilator 30.00 11/17/21 08:00 36.0 Capillary Refill : Less Than 3 Seconds Results/Procedures Lab Laboratory Tests 11/17/21 04:00 Patient resulted labs reviewed. Assessment/Plan Assessment and Plan Assess & Plan/Chief Complaint Assessment/Plan 1A: CVA with no recovery of neuro function (1) Cardiopulmonary arrest with successful resuscitation Status: Acute Assessment & Plan: s/p about 5 minutes of CPR and 2 doses of epinephrine, minimally to unresponsive after, now intubated. BP okay initially, monitor closely. See goals of care discussion. (2) Respiratory failure Status: Acute Assessment & Plan: Suspect possibly pulmonary edema vs mucous plugging given she has been receiving large amount as was needed for her rhabdo, and her post- intubation CXR shows white-out of left side, contacted Dr. Chanel del rosario for possible bronchoscopy. Lasix 20 mg IV given before code event when her hypoxia was worsening. IVF running at 30 mls/hr with potassium. Qualifiers: Qualified Codes: J96.01 - Acute respiratory failure with hypoxia (3) Sepsis Status: Acute Assessment & Plan: Secondary to urinary tract infection, IVF and ceftriaxone. Culture pending. 11/11 holding IVF due to hypoxic respiratory failure. Qualifiers: (4) Lactic acidosis Status: Resolved Assessment & Plan: 11/10- Suspect secondary to tissue hypoxia with rhabdo, resolved overnight with IVF. (5) Candidal intertrigo Status: Acute Assessment & Plan: 11/10- Severe, diffuse, will treat with diflucan x 7 days. (6) Morbid obesity Status: Chronic (7) Hypothermia Status: Acute Assessment & Plan: Improving, continue treating underlying conditions Qualifiers: Qualified Codes: T68.XXXA - Hypothermia, initial encounter (8) Renal insufficiency Status: Acute Assessment & Plan: Trending improved with IVF resuscitation, suspect secondary to dehydration and rhabdomyolysis 11/11 creatinine trending down, but now holding IVF due to hypoxic respiratory failure (9) UTI (urinary tract infection) Status: Acute Assessment & Plan: Culture pending, ceftriaxone started. (10) Uncontrolled diabetes mellitus Status: Chronic Assessment & Plan: Reviewed clinic chart, 10/10/21 A1c 11.3 Sliding scale insulin, diabetic diet when tolerating oral. Was not taking home medications for some time. Qualifiers: Qualified Codes: E11.65 - Type 2 diabetes mellitus with hyperglycemia (11) Elevated troponin Status: Acute Assessment & Plan: Cardiology consulted, appreciate recommendations. Suspect related to rhabdo rather than new cardiac event. (12) Contusion of right shoulder Status: Acute Assessment & Plan: Xray without fracture Qualifiers: Qualified Codes: S40.011A - Contusion of right shoulder, initial encounter (13) Fall from standing Status: Acute Assessment & Plan: PT when able Qualifiers: Qualified Codes: W19.XXXA - Unspecified fall, initial encounter (14) Rhabdomyolysis Status: Acute Assessment & Plan: IVF, monitor CK and creatinine Qualifiers: Qualified Codes: T79.6XXA - Traumatic ischemia of muscle, initial encounter (15) Hypertension Status: Chronic Qualifiers: Qualified Codes: I10 - Essential (primary) hypertension (16) Hyperlipidemia Status: Chronic (17) Coronary artery disease without angina pectoris Status: Chronic Assessment & Plan: History of bypass, has not been taking medications at home. Restarted aspirin, cannot tolerate beta ran and ACEI due to current BP. Qualifiers: Qualified Codes: I25.810 - Atherosclerosis of coronary artery bypass graft(s) without angina pectoris (18) DVT prophylaxis Status: Acute Assessment & Plan: Enoxaparin (19) Goals of care, counseling/discussion Status: Acute Assessment & Plan: 11/11 Spoke with brother Alan this morning after code event, pt was unable to have in depth conversation yesterday and he reports they haven't really talked about her wishes. He does feel confident that if she has hypoxic brain insult, she would not want to be on the ventilator for a prolonged period. He also notes that she has been failing at home for some time, she does not drive, she is not taking her medications and has been having more and more difficulty getting around but has resisted moving in with someone else, although after the last time she fell, her family told her if she had another fall they felt she could not go back to her home alone. Discussed that it is difficult to know yet whether she has sustained further correction consequences after her arrest, and will monitor closely over next 24-48 hours with the recognition that family does feel she would prefer comfort over aggressive care if not thought to be likely to be beneficial. Plan: Supportive care Assess neurologic function 11/13/21: DNR Poor prognosis 11/14/21: Monitor closely DNR Poor prognosis 11/15/21: Supportive care Prognosis poor 11/16/21: CVA with no recovery of neuro function Critical Care Ventilator Management VANDANA KNOWLES DO Nov 17, 2021 06:33
--- NOTE | 2021-11-17 06:57 | Occ Therapy Progress Note ---
Therapy Progress Note Per physician's note OT to dismiss pt from services. Will need new orders. SRAVAN GALVEZ Nov 17, 2021 06:57
[2021-11-17 07:03] VITALS: BP 105/48
[2021-11-17] MEDS ORDERED: ASPIRIN 81 MG CHEW (CHILDREN'S ASA) PO SCH (09:00)
[2021-11-17] MEDS ORDERED: PANTOPRAZOLE 40 MG (PROTONIX) VIAL IV SCH (09:00)
--- NOTE | 2021-11-17 09:17 | Cardiology Progress Note ---
Progress Note-Cardiology Events since last exam Date Seen by Provider: Nov 17, 2021 Time Seen by Provider: 09:15 Events since last exam I am following her due to cardiopulmonary arrest. She remains in the intensive care unit intubated. Yesterday the family was planning on a terminal extubation but then she started moving her arms slightly. Sedation has been off for about 24 hours. This morning when I asked her to open her eyes, I could see some movement but she could not seem to get her eyes open. She was not following any other commands. I spoke to her nurse. No family is at the bedside this carol gupta Certain portions of this document may have been dictated utilizing voice recognition technology. Inherent to this technology, typographical and grammatical errors may exist. As much as I am diligent to identify and correct these mistakes, some errors may remain in the document. Vitals Last set of Vitals Signs Vital Signs 11/17/21 11/17/21 11/17/21 11/17/21 07:03 08:00 09:00 09:38 Temp 36.0 Pulse 52 Resp 25 B/P (MAP) 140/69 Pulse Ox 95 O2 Delivery Mechanical Ventilator O2 Flow Rate 30.00 FiO2 30 Labs Labs Laboratory Tests 11/17/21 04:00 Exam Vital Signs Vital Signs Date Time Temp Pulse Resp B/P (MAP) Pulse Ox O2 Delivery O2 Flow Rate FiO2 11/17/21 09:38 Mechanical Ventilator 30.00 11/17/21 09:00 52 25 140/69 95 11/17/21 08:00 36.0 11/17/21 07:03 30 Physical Exam General: Intubated but not sedated. Well nourished and appears stated age. She is morbidly obese. Eye: Conjunctivae are clear. There are no xanthelasma. HENT: Normocephalic. Atraumatic. Carotid pulsations 2/2 without bruits. Neck: Jugular venous pressure does not appear elevated. No thyromegaly apprecia pradeep. Respiratory: Symmetrical expansion bilaterally. Coarse breath sounds due to the ventilator. Cardiovascular: Normal rate. Regular rhythm. Distant S1/S2. No murmur. No gallop. Point of maximal impulse is not appear displaced. Good pulses equal in all extremities. 1+ bilateral pretibial edema. Gastrointestinal: Soft. Normal bowel sounds. Skin: Skin turgor is normal. There is no pallor. Musculoskeletal: No obvious deformities. Neurologic: Intubated but not sedated. Psychiatric: Not obtainable due to clinical status. Labs Laboratory Tests Test 11/16/21 12:30 11/16/21 17:35 11/16/21 22:48 11/17/21 04:00 Range/Units Glucometer 157 H 205 H 182 H 70-110 MG/DL White Blood Count 15.3 H 4.3-11.0 10^3/uL Red Blood Count 3.65 L 3.80-5.11 10^6/uL Hemoglobin 9.2 L 11.5-16.0 g/dL Hematocrit 31 L 35-52 % Mean Corpuscular Volume 86 80-99 fL Mean Corpuscular Hemoglobin 25 25-34 pg Mean Corpuscular Hemoglobin Concent 29 L 32-36 g/dL Red Cell Distribution Width 15.9 H 10.0-14.5 % Platelet Count 215 130-400 10^3/uL Mean Platelet Volume 12.4 H 9.0-12.2 fL Immature Granulocyte % (Auto) 2 % Neutrophils (%) (Auto) 72 42-75 % Lymphocytes (%) (Auto) 16 12-44 % Monocytes (%) (Auto) 7 0-12 % Eosinophils (%) (Auto) 3 0-10 % Basophils (%) (Auto) 0 0-10 % Neutrophils # (Auto) 11.1 H 1.8-7.8 10^3/uL Lymphocytes # (Auto) 2.5 1.0-4.0 10^3/uL Monocytes # (Auto) 1.1 H 0.0-1.0 10^3/uL Eosinophils # (Auto) 0.4 H 0.0-0.3 10^3/uL Basophils # (Auto) 0.1 0.0-0.1 10^3/uL Immature Granulocyte # (Auto) 0.3 H 0.0-0.1 10^3/uL Neutrophils % (Manual) 79 % Lymphocytes % (Manual) 13 % Monocytes % (Manual) 6 % Eosinophils % (Manual) 0 % Basophils % (Manual) 0 % Band Neutrophils 2 % Polychromasia SLIGHT Anisocytosis SLIGHT Blood Gas Puncture Site RRAD Blood Gas Patient Temperature 37.3 Arterial Blood pH 7.25 *L 7.37-7.43 Arterial Blood Partial Pressure CO2 44 35-45 MMHG Arterial Blood Partial Pressure O2 80 79-93 MMHG Arterial Blood HCO3 19 L 23-27 MMOL/L Arterial Blood Total CO2 19.9 L 21.0-31.0 MMOL/L Arterial Blood Oxygen Saturation 95 94-100 % Arterial Blood Base Excess -7.3 L -2.5-2.5 MMOL/L Vernon Test YES-POS Blood Gas Ventilator Setting YES Blood Gas Inspired Oxygen 30% Sodium Level 144 135-145 MMOL/L Potassium Level 5.0 3.6-5.0 MMOL/L Chloride Level 113 H 98-107 MMOL/L Carbon Dioxide Level 16 L 21-32 MMOL/L Anion Gap 15 H 5-14 MMOL/L Blood Urea Nitrogen 52 H 7-18 MG/DL Creatinine 4.01 H 0.60-1.30 MG/DL Estimat Glomerular Filtration Rate 12 BUN/Creatinine Ratio 13 Glucose Level 211 H 70-105 MG/DL Calcium Level 8.5 8.5-10.1 MG/DL Corrected Calcium 10.0 8.5-10.1 MG/DL Total Bilirubin 0.4 0.1-1.0 MG/DL Aspartate Amino Transf (AST/SGOT) 30 5-34 U/L Alanine Aminotransferase (ALT/SGPT) 44 0-55 U/L Alkaline Phosphatase 223 H 40-136 U/L Total Protein 6.1 L 6.4-8.2 GM/DL Albumin 2.1 L 3.2-4.5 GM/DL Diagnosis/Problems Diagnosis/Problems (1) Cardiopulmonary arrest with successful resuscitation Status: Acute Assessment & Plan: I suspect this was initially a respiratory arrest due to some mucous plugging that then resulted in cardiac arrest. She has had minimal neurologic recovery since the cardiopulmonary arrest but in the past 24 hours seems to be intermittently following commands. The family has decided not to do a terminal extubation. Once we determine what sort of neurologic recovery the patient has, we can decide on whether or not to undergo any additional cardiac testing. (2) Elevated troponin Status: Acute Assessment & Plan: I suspect this is due to rhabdomyolysis and does not represent an acute coronary syndrome. I do not believe she suffered a myocardial infarction. This is noncardiac elevation of the troponin level due to rhabdomyolysis. (3) Coronary artery disease without angina pectoris Status: Chronic Assessment & Plan: Despite her fall and elevated troponin, she was not reporting any chest discomfort prior to the cardiopulmonary arrest in the hospital. She had borderline ischemic changes on her electrocardiogram. As above, I suspect the troponin elevation is due to rhabdomyolysis. If she makes any meaningful neurologic recovery, then we can have a discussion with the patient and her family as to whether or not to pursue an ischemic evaluation. In the interim, we will continue aspirin and carvedilol. (4) Primary hypertension Assessment & Plan: She has a reported history of hypertension but may not have been taking any medication for this at home. Her blood pressure did actually come under control with oral medication. We will continue carvedilol for the time being. (5) Mixed hyperlipidemia Assessment & Plan: Her cholesterol level was markedly elevated at the time of admission. Statin medication was not given due to markedly abnormal liver function tests. Her transaminase levels have improved but alkaline phosphatase is still elevated. (6) Shock Assessment & Plan: She did develop some shock following the cardiopulmonary arrest and required some norepinephrine infusion for less than 24 hours. Exact etiology of the shock is unclear. This has now resolved. (7) Acute kidney injury Assessment & Plan: Her renal function had stabilized around a creatinine level of 3.5-3.7 for a few days but is now up to 4. She may need dialysis. (8) Rhabdomyolysis Status: Acute Assessment & Plan: She had been receiving intravenous fluids under the direction of the hospitalist. (9) Morbid obesity Status: Chronic Assessment & Plan: I suspect this contributed to her current clinical condition. Problem Qualifiers (1) Coronary artery disease without angina pectoris: Coronary Disease-Associated Artery/Lesion type: [place] artery [place] vs. transplanted heart: [place] heart Qualified Codes: I25.10 - Atherosclerotic heart disease of [place] coronary artery without angina pectoris (2) Rhabdomyolysis: Rhabdomyolysis type: traumatic Encounter type: initial encounter Qualified Codes: T79.6XXA - Traumatic ischemia of muscle, initial encounter ROGER TUCKER JR, MD Nov 17, 2021 09:17
--- NOTE | 2021-11-17 10:21 | Tele-ICU Progress Note ---
Subjective Date Seen by a Provider: Nov 17, 2021 Time Seen by a Provider: 10:20 Subjective/Events-last exam (Tele-ICU Physician , Progress Note ) Available chart/ vitals / labs / Images reviewed Video assessment done using teleICU camera Events overnight : increase d need for o2 Afebrile FiO2 - I/O = pos 3 L Drips: ns 250 Pressors: , hemodynamically stable Consultants: Hospital course: (11/10) 61yF Admit s/p unwitnessed fall @ home. Down approx 36 hours. DX: fall from standing, Uncontrolled DM, Lactic Acidosis, UTI, Hypothermia, sepsis, dehydration,RI, Candidal Inertrigo, Inability to care for self, R shoulder contusion, Morbid obesity, Elev Trop, Early Rhabdo, Non complaince (11/11) Tachypneic & hypoxic. Treated for fluid overload. Failed Bipap. Intubated. Brief cardiac arrest - due to hypoxia - 1 amp epi given , 1 round ACLS 11/17- CVA - CT - small PER RN - FAMILY WAS CONSIDERING TO CHANGE TO COMFORT MEASURES , BUT NO WANT TO CONT AGRESSIVE TX GIVEN HER PRE-HOSPITAL STATE OF HEALTH AND CURRENT MEDICAL CONDITIONS, EVEN WITH BEST OUTCOMES SHE WILL BE A INTERMEDIATE DWELLER ( ALSO CAN NOT PREDICT NOW IF SHE WILL BE DEPENDANT ON VENT AND HD ) IF THIS QUALITY OF LIFE IS ALIGNED WITH PATIENT AND POA WISHES , ONE MIGHT CONSIDER OPTION OF HD A/P Acute resp failure - faled NIPPV this am --INTUBATED 11/11 - bronchoscopy for signigicanr mucous plugging with almost full LEFT lung atelectasis -FIO@ 30 % - increased rr trying to compensate for met acidosis Brief cardiac arrest - due to hypoxia - 1 amp epi given , 1 round ACLS - fully AAO prior to arrest , intubated without meds Encephalopathy - sedation OFF since November 12 ( propf and fentanyl ) -CT head new lacunar infarct in the right internal capsule and thalamus CAD - elv trop - as per cards - EF 10/2021 - EF 60% Rhabdo - very mild - resolved YANET - WORSENIGN despite 4L positive last 24 h - Vanco stopped - ? HD - as per discussion by PCP and family PNA - s/p FOB 11/11- Cx + for pansens Staph renny - finished Abx DM II - poorly controlled Anemia - stable Diarrhia - intermittent , ? tube feeds - mild elev WBC - if persit will check fo c diff S/p fall on tresentation - CT cerv - no trauma -Contusion of right shoulder morbid obesity Lines : R IJ to be place 11/11 (Central Line Necessity Reviewed) - cx 11/17 [place]: 11/10 OG: + Nutrition: + Analgesia: Anxiety/ delirium VTE Prophylaxis: hep Stress Ulcer Prophylaxis: ppi Plans in collaboration with bedside consultants and IM MDs. RN to reach out if any questions or concerns A total of 32 minutes of critical care time was devoted to this patient today, required to treat and/or prevent further deterioration of critical care condition ( as above) . Sepsis Event Evaluation Height, Weight, BMI Height: 5'2" Weight: 226lbs. oz. 102.649273tt; 40.69 BMI Method: Focused Exam Time of Focused Exam: 00:30 Exam Exam Patient acknowledged, consented, and participated in this virtual visit which was conducted using real time audio/video Vital Signs Date Time Temp Pulse Resp B/P (MAP) Pulse Ox O2 Delivery O2 Flow Rate FiO2 11/17/21 09:38 Mechanical Ventilator 30.00 11/17/21 09:00 52 25 140/69 95 Mechanical Ventilator 25.00 11/17/21 08:00 49 19 104/49 94 Mechanical Ventilator 25.00 11/17/21 08:00 36.0 11/17/21 07:03 53 20 94 30 11/17/21 07:00 52 19 105/48 94 Mechanical Ventilator 25.00 11/17/21 07:00 53 11/17/21 06:00 54 20 105/46 94 Mechanical Ventilator 25.00 11/17/21 05:00 51 20 97/47 94 Mechanical Ventilator 25.00 11/17/21 04:00 56 19 108/49 94 Mechanical Ventilator 25.00 11/17/21 04:00 Mechanical Ventilator 30 11/17/21 03:00 57 19 97/46 91 Mechanical Ventilator 25.00 11/17/21 02:49 54 21 91 30 11/17/21 02:00 56 19 99/48 93 Mechanical Ventilator 25.00 11/17/21 01:00 55 19 106/47 93 Mechanical Ventilator 25.00 11/17/21 01:00 55 11/17/21 00:00 52 20 96/47 93 Mechanical Ventilator 25.00 11/17/21 00:00 36.6 11/16/21 23:59 93 Mechanical Ventilator 11/16/21 23:00 56 19 93/46 92 Mechanical Ventilator 25.00 11/16/21 22:30 36.3 11/16/21 22:29 56 20 95 30 11/16/21 22:00 54 19 100/51 93 Mechanical Ventilator 25.00 11/16/21 21:00 56 19 97/47 92 Mechanical Ventilator 25.00 11/16/21 20:00 93 Mechanical Ventilator 11/16/21 20:00 54 19 120/58 93 Mechanical Ventilator 25.00 11/16/21 20:00 36.6 11/16/21 19:43 36.3 11/16/21 19:00 54 20 97/51 90 Mechanical Ventilator 25.00 11/16/21 19:00 54 11/16/21 18:41 55 20 94 30 11/16/21 18:00 57 19 103/52 92 Mechanical Ventilator 25.00 11/16/21 17:00 53 19 101/49 93 Mechanical Ventilator 25.00 11/16/21 16:00 37.7 11/16/21 16:00 60 19 104/52 93 Mechanical Ventilator 25.00 11/16/21 15:27 93 Mechanical Ventilator 25 11/16/21 15:00 58 22 102/51 94 Mechanical Ventilator 25.00 11/16/21 14:22 Mechanical Ventilator 25.00 11/16/21 14:02 56 23 97 35 11/16/21 14:00 57 38 94/51 96 Mechanical Ventilator 35.00 11/16/21 13:00 56 11/16/21 13:00 56 20 97/51 97 Mechanical Ventilator 35.00 11/16/21 12:00 54 20 97/55 96 Mechanical Ventilator 35.00 11/16/21 11:05 36.6 11/16/21 11:02 96 Mechanical Ventilator 35 11/16/21 11:00 58 23 106/54 96 Mechanical Ventilator 35.00 11/16/21 10:36 56 20 95 35 I & O 11/17/21 07:00 Intake Total 2730 ml Output Total 1700 ml Balance 1030 ml Height & Weight Height: 5'2" Weight: 226lbs. oz. 102.680374og; 40.69 BMI Method: General Appearance: No Apparent Distress, WD/WN, Chronically ill, Obese HEENT: TMs Normal Neck: Full Range of Motion Respiratory: Lungs Clear, Normal Breath Sounds Cardiovascular: Regular Rate, Rhythm Capillary Refill: Less Than 3 Seconds Gastrointestinal: normal bowel sounds, non tender, soft Extremity: Normal Capillary Refill Neurologic/Psychiatric: Other Skin: Normal Color Lymphatic: No Adenopathy Results Lab Laboratory Tests 11/16/21 03:47 11/17/21 04:00 Assessment/Plan Assessment/Plan ` SARAH ROTH MD Nov 17, 2021 10:21
[2021-11-17 10:22] LABS: PHOSPHORUS 4.2 MG/DL (2.3-4.7)
[2021-11-17 10:23] VITALS: BP 137/71
[2021-11-17 10:24] LABS: MAGNESIUM 2.5 MG/DL (1.6-2.4)
--- NOTE | 2021-11-17 14:30 | Progress Note ---
Subjective Date Seen by a Provider: Nov 17, 2021 Time Seen by a Provider: 14:00 Subjective/Events-last exam patient on vent. somewhat responsive, mostly to family. worsening renal failure. Focused Exam Time of Focused Exam: 00:30 Objective Exam Vital Signs Date Time Temp Pulse Resp B/P (MAP) Pulse Ox O2 Delivery O2 Flow Rate FiO2 11/17/21 14:00 51 25 141/68 95 Mechanical Ventilator 30.00 11/17/21 13:00 49 26 134/62 95 Mechanical Ventilator 30.00 11/17/21 12:00 51 25 127/65 95 Mechanical Ventilator 30.00 11/17/21 11:00 52 25 150/69 95 Mechanical Ventilator 30.00 11/17/21 10:23 52 26 95 30 11/17/21 10:00 52 26 144/72 95 Mechanical Ventilator 30.00 11/17/21 09:38 Mechanical Ventilator 30.00 11/17/21 09:00 52 25 140/69 95 Mechanical Ventilator 25.00 11/17/21 08:00 49 19 104/49 94 Mechanical Ventilator 25.00 11/17/21 08:00 36.0 11/17/21 08:00 Mechanical Ventilator 30 11/17/21 07:03 53 20 94 30 11/17/21 07:00 52 19 105/48 94 Mechanical Ventilator 25.00 11/17/21 07:00 53 11/17/21 06:00 54 20 105/46 94 Mechanical Ventilator 25.00 11/17/21 05:00 51 20 97/47 94 Mechanical Ventilator 25.00 11/17/21 04:00 56 19 108/49 94 Mechanical Ventilator 25.00 11/17/21 04:00 Mechanical Ventilator 30 11/17/21 03:00 57 19 97/46 91 Mechanical Ventilator 25.00 11/17/21 02:49 54 21 91 30 11/17/21 02:00 56 19 99/48 93 Mechanical Ventilator 25.00 11/17/21 01:00 55 19 106/47 93 Mechanical Ventilator 25.00 11/17/21 01:00 55 11/17/21 00:00 52 20 96/47 93 Mechanical Ventilator 25.00 11/17/21 00:00 36.6 11/16/21 23:59 93 Mechanical Ventilator 11/16/21 23:00 56 19 93/46 92 Mechanical Ventilator 25.00 11/16/21 22:30 36.3 11/16/21 22:29 56 20 95 30 11/16/21 22:00 54 19 100/51 93 Mechanical Ventilator 25.00 11/16/21 21:00 56 19 97/47 92 Mechanical Ventilator 25.00 11/16/21 20:00 93 Mechanical Ventilator 11/16/21 20:00 54 19 120/58 93 Mechanical Ventilator 25.00 11/16/21 20:00 36.6 11/16/21 19:43 36.3 11/16/21 19:00 54 20 97/51 90 Mechanical Ventilator 25.00 11/16/21 19:00 54 11/16/21 18:41 55 20 94 30 11/16/21 18:00 57 19 103/52 92 Mechanical Ventilator 25.00 11/16/21 17:00 53 19 101/49 93 Mechanical Ventilator 25.00 11/16/21 16:00 37.7 11/16/21 16:00 60 19 104/52 93 Mechanical Ventilator 25.00 11/16/21 15:27 93 Mechanical Ventilator 25 11/16/21 15:00 58 22 102/51 94 Mechanical Ventilator 25.00 I & O 11/17/21 07:00 Intake Total 2730 ml Output Total 1700 ml Balance 1030 ml Capillary Refill : Less Than 3 Seconds General Appearance: No Apparent Distress HEENT: PERRL/EOMI Neck: Full Range of Motion Respiratory: Rhonci, Wheezing Cardiovascular: Regular Rate, Rhythm Gastrointestinal: normal bowel sounds, non tender, soft Extremity: Normal Capillary Refill Neurologic/Psychiatric: Alert, Oriented x3 Skin: Normal Color Lymphatic: No Adenopathy Results Lab Laboratory Tests 11/16/21 17:35: Glucometer 205H 11/16/21 22:48: Glucometer 182H 11/17/21 04:00: White Blood Count 15.3H, Red Blood Count 3.65L, Hemoglobin 9.2L, Hematocrit 31L, Mean Corpuscular Volume 86, Mean Corpuscular Hemoglobin 25, Mean Corpuscular Hemoglobin Concent 29L, Red Cell Distribution Width 15.9H, Platelet Count 215, Mean Platelet Volume 12.4H, Immature Granulocyte % (Auto) 2, Neutrophils (%) (Auto) 72, Lymphocytes (%) (Auto) 16, Monocytes (%) (Auto) 7, Eosinophils (%) (Auto) 3, Basophils (%) (Auto) 0, Neutrophils # (Auto) 11.1H, Lymphocytes # (Auto) 2.5, Monocytes # (Auto) 1.1H, Eosinophils # (Auto) 0.4H, Basophils # (Auto) 0.1, Immature Granulocyte # (Auto) 0.3H, Neutrophils % (Manual) 79, Lymphocytes % (Manual) 13, Monocytes % (Manual) 6, Eosinophils % (Manual) 0, Basophils % (Manual) 0, Band Neutrophils 2, Polychromasia SLIGHT, Anisocytosis SLIGHT, Blood Gas Puncture Site RRAD, Blood Gas Patient Temperature 37.3, Arterial Blood pH 7.25*L, Arterial Blood Partial Pressure CO2 44, Arterial Blood Partial Pressure O2 80, Arterial Blood HCO3 19L, Arterial Blood Total CO2 19.9L, Arterial Blood Oxygen Saturation 95, Arterial Blood Base Excess -7.3L, Vernon Test YES-POS, Blood Gas Ventilator Setting YES, Blood Gas Inspired Oxygen 30%, Sodium Level 144, Potassium Level 5.0, Chloride Level 113H, Carbon Dioxide Level 16L, Anion Gap 15H, Blood Urea Nitrogen 52H, Creatinine 4.01H, Estimat Glomerular Filtration Rate 12, BUN/Creatinine Ratio 13, Glucose Level 211H, Calcium Level 8.5, Corrected Calcium 10.0, Phosphorus Level 4.2, Magnesium Level 2.5H, Total Bilirubin 0.4, Aspartate Amino Transf (AST/SGOT) 30, Alanine Aminotransferase (ALT/SGPT) 44, Alkaline Phosphatase 223H, Total Protein 6.1L, Albumin 2.1L 11/17/21 11:28: Glucometer 212H Microbiology 11/11/21 Mycobacterial Culture - Preliminary, Resulted 11/10/21 Blood Culture - Final, Complete No growth 11/09/21 Urine Culture - Final, Complete 3 or more isolates Assessment/Plan Assessment/Plan Assess & Plan/Chief Complaint fall,loss of consciousness, obtundation and dehydration, respiratory and renal failure. cont vent ween. renal fxn worsening. fluids and monitory vs. transfer and CVVHD? cont abx and antifungal. LUCA GUTIERREZ MD Nov 17, 2021 14:30
[2021-11-17 14:50] VITALS: BP 124/55
--- NOTE | 2021-11-17 15:16 | Discharge Summary ---
Discharge Summary Hospital Course Was the Problem List Reviewed?: Yes Problems/Dx: (1) Cardiopulmonary arrest with successful resuscitation Status: Acute (2) Elevated troponin Status: Acute (3) Coronary artery disease without angina pectoris Status: Chronic Qualifiers: Qualified Codes: I25.10 - Atherosclerotic heart disease of [place] coronary artery without angina pectoris (4) Primary hypertension (5) Mixed hyperlipidemia (6) Shock (7) Acute kidney injury (8) Rhabdomyolysis Status: Acute Qualifiers: Qualified Codes: T79.6XXA - Traumatic ischemia of muscle, initial encounter (9) Morbid obesity Status: Chronic Hospital Course Date of Admission: November 10, 2021 at 02:40 Admission Diagnosis : Family Physician/Provider: Francisco Aguilar MD Date of Discharge: 11/17/21 Discharge Diagnosis: Cardiopulmonary arrest, ventilator dependent, CVA right internal capsule and thalamus, acute kidney injury Baseline creatinine 1.8, uncertain neurologic return/recovery Hospital Course: Pt had a lengthy hospital course for 8 days after she was admitted for altered mental status under experienced an arrest of either cardiac or respiratory difficult to ascertain. Ended up requiring intubation. Renal function worsened. Antibiotics maintained for empiric treatment for pneumonia and infection for possible etiology of the source of the arrest. Everyday I spoke with the brother, next of kin, who had struggled with the fact of her inability to recover quickly and realistic expectations. He requested that type of update. Ultimately he wanted to transfer for nephrology after debating terminal extubation and comfort care. Required transfer to higher level of care for that. Creatinine was 4.0. He wasn't interested in terminal extubation, TRACH, or PEG. [facility] ICU transferred. Labs and Pending Lab Test: Laboratory Tests 11/16/21 17:35: Glucometer 205H 11/16/21 22:48: Glucometer 182H 11/17/21 04:00: White Blood Count 15.3H, Red Blood Count 3.65L, Hemoglobin 9.2L, Hematocrit 31L, Mean Corpuscular Volume 86, Mean Corpuscular Hemoglobin 25, Mean Corpuscular Hemoglobin Concent 29L, Red Cell Distribution Width 15.9H, Platelet Count 215, Mean Platelet Volume 12.4H, Immature Granulocyte % (Auto) 2, Neutrophils (%) (Auto) 72, Lymphocytes (%) (Auto) 16, Monocytes (%) (Auto) 7, Eosinophils (%) (Auto) 3, Basophils (%) (Auto) 0, Neutrophils # (Auto) 11.1H, Lymphocytes # (Auto) 2.5, Monocytes # (Auto) 1.1H, Eosinophils # (Auto) 0.4H, Basophils # (Auto) 0.1, Immature Granulocyte # (Auto) 0.3H, Neutrophils % (Manual) 79, Lymphocytes % (Manual) 13, Monocytes % (Manual) 6, Eosinophils % (Manual) 0, B asophils % (Manual) 0, Band Neutrophils 2, Polychromasia SLIGHT, Anisocytosis SLIGHT, Blood Gas Puncture Site RRAD, Blood Gas Patient Temperature 37.3, Arterial Blood pH 7.25*L, Arterial Blood Partial Pressure CO2 44, Arterial Blood Partial Pressure O2 80, Arterial Blood HCO3 19L, Arterial Blood Total CO2 19.9L, Arterial Blood Oxygen Saturation 95, Arterial Blood Base Excess -7.3L, [place] Test YES-POS, Blood Gas Ventilator Setting YES, Blood Gas Inspired Oxygen 30%, Sodium Level 144, Potassium Level 5.0, Chloride Level 113H, Carbon Dioxide Level 16L, Anion Gap 15H, Blood Urea Nitrogen 52H, Creatinine 4.01H, Estimat Glomerular Filtration Rate 12, BUN/Creatinine Ratio 13, Glucose Level 211H, Calcium Level 8.5, Corrected Calcium 10.0, Phosphorus Level 4.2, Magnesium Level 2.5H, Total Bilirubin 0.4, Aspartate Amino Transf (AST/SGOT) 30, Alanine Aminotransferase (ALT/SGPT) 44, Alkaline Phosphatase 223H, Total Protein 6.1L, Albumin 2.1L 11/17/21 11:28: Glucometer 212H Microbiology 11/11/21 Mycobacterial Culture - Preliminary, Resulted 11/10/21 Blood Culture - Final, Complete No growth 11/09/21 Urine Culture - Final, Complete 3 or more isolates Home Meds Active No Active Prescriptions or Reported Medications Assessment/Pt Instructions Transfer to [facility] with nephrology and neurology Discharge Planning: <30 minutes discharge planning Discharge Physical Examination Vital Signs Vital Signs Date Time Temp Pulse Resp B/P (MAP) Pulse Ox O2 Delivery O2 Flow Rate FiO2 11/17/21 14:50 50 26 94 30 11/17/21 14:00 141/68 Mechanical Ventilator 30.00 11/17/21 08:00 36.0 Allergies: Coded Allergies: No Known Drug Allergies (Unverified , 07/21/11) Discharge Summary Date of Admission November 10, 2021 at 02:40 Date of Discharge Discharge Date: Nov 17, 2021 Comfort Measures/ End of Life Care: Comfort Measures Discharge Diagnosis Assessment/Plan 1A: CVA with no recovery of neuro function (1) Cardiopulmonary arrest with successful resuscitation Status: Acute Assessment & Plan: s/p about 5 minutes of CPR and 2 doses of epinephrine, minimally to unresponsive after, now intubated. BP okay initially, monitor closely. See goals of care discussion. (2) Respiratory failure Status: Acute Assessment & Plan: Suspect possibly pulmonary edema vs mucous plugging given she has been receiving large amount as was needed for her rhabdo, and her post- intubation CXR shows white-out of left side, contacted Dr. Buchanan to eval for p ossible bronchoscopy. Lasix 20 mg IV given before code event when her hypoxia was worsening. IVF running at 30 mls/hr with potassium. Qualifiers: Qualified Codes: J96.01 - Acute respiratory failure with hypoxia (3) Sepsis Status: Acute Assessment & Plan: Secondary to urinary tract infection, IVF and ceftriaxone. Culture pending. 11/11 holding IVF due to hypoxic respiratory failure. Qualifiers: (4) Lactic acidosis Status: Resolved Assessment & Plan: 11/10- Suspect secondary to tissue hypoxia with rhabdo, resolved overnight with IVF. (5) Candidal intertrigo Status: Acute Assessment & Plan: 11/10- Severe, diffuse, will treat with diflucan x 7 days. (6) Morbid obesity Status: Chronic (7) Hypothermia Status: Acute Assessment & Plan: Improving, continue treating underlying conditions Qualifiers: Qualified Codes: T68.XXXA - Hypothermia, initial encounter (8) Renal insufficiency Status: Acute Assessment & Plan: Trending improved with IVF resuscitation, suspect secondary to dehydration and rhabdomyolysis 11/11 creatinine trending down, but now holding IVF due to hypoxic respiratory failure (9) UTI (urinary tract infection) Status: Acute Assessment & Plan: Culture pending, ceftriaxone started. (10) Uncontrolled diabetes mellitus Status: Chronic Assessment & Plan: Reviewed clinic chart, 10/10/21 A1c 11.3 Sliding scale insulin, diabetic diet when tolerating oral. Was not taking home medications for some time. Qualifiers: Qualified Codes: E11.65 - Type 2 diabetes mellitus with hyperglycemia (11) Elevated troponin Status: Acute Assessment & Plan: Cardiology consulted, appreciate recommendations. Suspect related to rhabdo rather than new cardiac event. (12) Contusion of right shoulder Status: Acute Assessment & Plan: Xray without fracture Qualifiers: Qualified Codes: S40.011A - Contusion of right shoulder, initial encounter (13) Fall from standing Status: Acute Assessment & Plan: PT when able Qualifiers: Qualified Codes: W19.XXXA - Unspecified fall, initial encounter (14) Rhabdomyolysis Status: Acute Assessment & Plan: IVF, monitor CK and creatinine Qualifiers: Qualified Codes: T79.6XXA - Traumatic ischemia of muscle, initial encounter (15) Hypertension Status: Chronic Qualifiers: Qualified Codes: I10 - Essential (primary) hypertension (16) Hyperlipidemia Status: Chronic (17) Coronary artery disease without angina pectoris Status: Chronic Assessment & Plan: History of bypass, has not been taking medications at home. Restarted aspirin, cannot tolerate beta ran and ACEI due to current BP. Qualifiers: Qualified Codes: I25.810 - Atherosclerosis of coronary artery bypass graft(s) without angina pectoris (18) DVT prophylaxis Status: Acute Assessment & Plan: Enoxaparin (19) Goals of care, counseling/discussion Status: Acute Assessment & Plan: 11/11 Spoke with brother Alan this morning after code event, pt was unable to have in depth conversation yesterday and he reports they haven't really talked about her wishes. He does feel confident that if she has hypoxic brain insult, she would not want to be on the ventilator for a prolonged period. He also notes that she has been failing at home for some time, she does not drive, she is not taking her medications and has been having more and more difficulty getting around but has resisted moving in with someone else, although after the last time she fell, her family told her if she had another fall they felt she could not go back to her home alone. Discussed that it is difficult to know yet whether she has sustained further superintendent terminal consequences after her arrest, and will monitor closely over next 24-48 hours with the recognition that family does feel she would prefer comfort over aggressive care if not thought to be likely to be beneficial. Plan: Supportive care Assess neurologic function 11/13/21: DNR Poor prognosis 11/14/21: Monitor closely DNR Poor prognosis 11/15/21: Supportive care Prognosis poor 11/16/21: CVA with no recovery of neuro function (1) Cardiopulmonary arrest with successful resuscitation Status: Acute Assessment & Plan: I suspect this was initially a respiratory arrest due to some mucous plugging that then resulted in cardiac arrest. She has had minimal neurologic recovery since the cardiopulmonary arrest but in the past 24 hours seems to be intermittently following commands. The family has decided not to do a terminal extubation. Once we determine what sort of neurologic recovery the patient has, we can decide on whether or not to undergo any additional cardiac testing. (2) Elevated troponin Status: Acute Assessment & Plan: I suspect this is due to rhabdomyolysis and does not represent an acute coronary syndrome. I do not believe she suffered a myocardial infarction. This is noncardiac elevation of the troponin level due to rhabdomyolysis. (3) Coronary artery disease without angina pectoris Status: Chronic Assessment & Plan: Despite her fall and elevated troponin, she was not rep orting any chest discomfort prior to the cardiopulmonary arrest in the hospital. She had borderline ischemic changes on her electrocardiogram. As above, I suspect the troponin elevation is due to rhabdomyolysis. If she makes any meaningful neurologic recovery, then we can have a discussion with the patient and her family as to whether or not to pursue an ischemic evaluation. In the interim, we will continue aspirin and carvedilol. Qualifiers: Qualified Codes: I25.10 - Atherosclerotic heart disease of [place] coronary artery without angina pectoris (4) Primary hypertension Assessment & Plan: She has a reported history of hypertension but may not have been taking any medication for this at home. Her blood pressure did actually come under control with oral medication. We will continue carvedilol for the time being. (5) Mixed hyperlipidemia Assessment & Plan: Her cholesterol level was markedly elevated at the time of admission. Statin medication was not given due to markedly abnormal liver function tests. Her transaminase levels have improved but alkaline phosphatase is still elevated. (6) Shock Assessment & Plan: She did develop some shock following the cardiopulmonary arrest and required some norepinephrine infusion for less than 24 hours. Exact etiology of the shock is unclear. This has now resolved. (7) Acute kidney injury Assessment & Plan: Her renal function had stabilized around a creatinine level of 3.5-3.7 for a few days but is now up to 4. She may need dialysis. (8) Rhabdomyolysis Status: Acute Assessment & Plan: She had been receiving intravenous fluids under the direction of the hospitalist. Qualifiers: Qualified Codes: T79.6XXA - Traumatic ischemia of muscle, initial encounter (9) Morbid obesity Status: Chronic Assessment & Plan: I suspect this contributed to her current clinical condition. VANDANA KNOWLES DO Nov 17, 2021 15:16
== END 2021-11-17 16:56 | disposition short-term general hospital (02) | DRG 870 ==
LOC: EDUNIT# 22:20 → ER 22:24 → ICU 11-10 02:40 → EDLOC 11-10 02:40
PROVIDERS: ADMIT Family Medicine; ATTEND Internal Medicine
PROC: 5A1955Z Respiratory Ventilation, Greater than 96 Consecutive Hours (ICD-10-PCS; principal; 2021-11-11)
PROC: 0BH17EZ Insertion of Endotracheal Airway into Trachea, Via Natural or Artificial Opening (ICD-10-PCS; 2021-11-11)
PROC: 5A09357 Assistance with Respiratory Ventilation, Less than 24 Consecutive Hours, Continuous Positive Airway Pressure (ICD-10-PCS; 2021-11-11)
PROC: 5A12012 Performance of Cardiac Output, Single, Manual (ICD-10-PCS; 2021-11-11)
PROC: 0BC78ZZ Extirpation of Matter from Left Main Bronchus, Via Natural or Artificial Opening Endoscopic (ICD-10-PCS; 2021-11-11)
PROC: 0BC38ZZ Extirpation of Matter from Right Main Bronchus, Via Natural or Artificial Opening Endoscopic (ICD-10-PCS; 2021-11-11)
DX: A41.2 Sepsis due to unspecified staphylococcus (principal); J15.20 Pneumonia due to staphylococcus, unspecified; J69.0 Pneumonitis due to inhalation of food and vomit; I63.9 Cerebral infarction, unspecified; J96.01 Acute respiratory failure with hypoxia; I46.9 Cardiac arrest, cause unspecified; S06.0X1A Concussion with loss of consciousness of 30 minutes or less, initial encounter; N39.0 Urinary tract infection, site not specified; M62.82 Rhabdomyolysis; N17.9 Acute kidney failure, unspecified; R57.9 Shock, unspecified; Z68.42 Body mass index [BMI] 45.0-49.9, adult; G93.40 Encephalopathy, unspecified; T17.590A Other foreign object in bronchus causing asphyxiation, initial encounter; E87.4 Mixed disorder of acid-base balance; Z66 Do not resuscitate; Z20.822 Contact with and (suspected) exposure to COVID-19; E86.0 Dehydration; E66.01 Morbid (severe) obesity due to excess calories; S40.011A Contusion of right shoulder, initial encounter; T68.XXXA Hypothermia, initial encounter; E11.65 Type 2 diabetes mellitus with hyperglycemia; H02.846 Edema of left eye, unspecified eyelid; H02.843 Edema of right eye, unspecified eyelid; I10 Essential (primary) hypertension; I25.10 Atherosclerotic heart disease of native coronary artery without angina pectoris; Z91.19 Patient's noncompliance with other medical treatment and regimen; E78.00 Pure hypercholesterolemia, unspecified; E78.2 Mixed hyperlipidemia; F41.9 Anxiety disorder, unspecified; F32.A Depression, unspecified; B37.2 Candidiasis of skin and nail; N28.9 Disorder of kidney and ureter, unspecified; Z79.4 Long term (current) use of insulin; Z79.84 Long term (current) use of oral hypoglycemic drugs; Z91.81 History of falling; Z95.1 Presence of aortocoronary bypass graft; Z79.82 Long term (current) use of aspirin; R77.8 Other specified abnormalities of plasma proteins
CPT/HCPCS: 36415; 70450; 70486; 71045; 72125; 72128; 72131; 72170; 73030; 80053; 80061; 80306; 81000; 82010; 82150; 82550; 82553; 82805; 82947; 83036; 83605; 83690; 83735; 83874; 83880; 84100; 84145; 84443; 84478; 84484; 85007; 85025; 85027; 85379; 85610; 85652; 85730; 86141; 87015; 87040; 87070; 87077; 87081; 87088; 87101; 87106; 87116; 87186; 87205; 87206; 87636; 93005; 93041; 93306; 94002; 94003; 94640; 94660; 94664; 94668; 94799; 96361; 96374; 96375; 99291